=== PATIENT | female | born 1995 | race Caucasian/White ===

== ENCOUNTER 2021-01-30 19:28 | Emergency (ER) | payer BC, SELFPAY ==
--- NOTE | 2021-01-30 19:37 | ED.EAR ---
HPI - Ear Problem General Chief complaint: Ear Stated complaint: Sore Throat/Ear Pain Time Seen by Provider: 01/30/21 19:37 Source: patient Mode of arrival: ambulatory Limitations: no limitations History of Present Illness HPI Narrative: Delma Webber is a 25 yo female with no PMH who comes to express care with L ear pain and sore throat x1 day. No fever no nausea vomiting diarrhea. Related Data Allergies Allergy/AdvReac Type Severity Reaction Status Date / Time amoxicillin Allergy Unknown Verified 01/30/21 19:44 latex Allergy Unknown Verified 01/30/21 19:44 Review of Systems Review of Systems: Complaints of bilateral ear pain and sore throat All other systems are negative other than what is refer to above otalgia. CARDIOVASCULAR: Denies chest pain, palpitations, edema. RESPIRATORY: Denies dyspnea, wheezing, cough GASTROINTESTINAL: Denies abdominal pain, nausea, vomiting, diarrhea. GENITOURINARY: Denies dysuria, hematuria, abnormal discharge SKIN: Denies rash or itching. NEUROLOGIC: Denies numbness, or focal weakness. PSYCHIATRIC: Denies anxiety or depression. Constitutional: Constitutional: Reports as per HPI Eyes: Eyes: Reports as per HPI ENT: Reports as per HPI Cardiovascular: Cardiovascular: Reports no additional cardiovascular complaints Respiratory: Respiratory: Reports no additional respiratory complaints Gastrointestinal: Gastrointestinal: Reports no additional gastrointestinal complaints Genitourinary: Genitourinary: Reports no additional female genitourinary complaints Musculoskeletal: Musculoskeletal: Reports no additional musculoskeletal complaints Psychiatric: Psychiatric: Reports no additional psychiatric complaints Endocrine: Endocrine: Reports no additional endocrine complaints Hematologic/Lymphatic: Hematologic/Lymphatic: Reports no additional hematologic/lymphatic complaints Allergic/Immunologic: Allergic/Immunologic: Reports no additional allergic/immunologic complaints [facility] Past Medical History Medical History No acute m
[2021-01-30 19:45] VITALS: BP 129/82; PULSE 93; RESP 16; TEMP 36.6; O2SAT 100
== END 2021-01-30 20:07 | disposition home or self-care (01) ==
PROVIDERS: Emergency Provider Nurse Practitioner; PCP Nurse Practitioner Family
DX: H66.003 Acute suppurative otitis media without spontaneous rupture of ear drum, bilateral (principal); J02.9 Acute pharyngitis, unspecified
CPT/HCPCS: 87081; 87880; 99213; G0463

== ENCOUNTER 2021-03-02 09:39 | Outpatient (CLI) | payer BC, SELFPAY | END 2021-03-02 09:40 | disposition home or self-care (01) | LOC: ANHAUDIO 09:40 | PROVIDERS: PCP Nurse Practitioner Family; Visit Provider Otolaryngology | DX: H90.71 Mixed conductive and sensorineural hearing loss, unilateral, right ear, with unrestricted hearing on the contralateral side (principal) | CPT/HCPCS: 92557; 92567 ==

== ENCOUNTER 2021-03-14 11:10 | Emergency (ER) | payer BC, SELFPAY ==
[2021-03-14 11:22] VITALS: BP 128/72; PULSE 83; RESP 16; TEMP 36.4; O2SAT 100
--- NOTE | 2021-03-14 11:53 | ED.LOWEXIN ---
HPI - Extremity Injury (Lower) General Chief Complaint: Extremity Injury, Lower Stated Complaint: Right knee pain. Time Seen by Provider: 03/14/21 11:54 Source: patient and RN notes reviewed Mode of arrival: ambulatory Limitations: no limitations History of Present Illness HPI Narrative: 26-year-old female presents with concern for knee injury and pain. Reports yesterday while cleaning a house she was bending when she felt a painful pop in the front of her knee. Reports since then the knee has been painful at rest and worsening pain with walking and range of motion. She reports she has been elevating the leg. MD complaint: knee injury Related Data Allergies Allergy/AdvReac Type Severity Reaction Status Date / Time amoxicillin Allergy Unknown Verified 02/13/21 10:09 latex Allergy Unknown Verified 02/13/21 10:09 Review of Systems Review of Systems: CONSTITUTIONAL: Denies malaise, chills, sweats, or fever. SKIN: Denies rash or itching, open skin, laceration, abrasion, redness, warmth, swelling. MUSCULOSKELETAL: Reports left knee pain NEUROLOGIC: Denies numbness, weakness All systems reviewed & are unremarkable except as noted in HPI and below PMFSH Past Medical History Medical History (Updated 03/14/21 @ 12:08 by Irina Loja NP) Anxiety No acute medical problems Family History Family History (Updated 02/13/21 @ 10:11 by Bing Bean MA) Father Hypertension Mother Diabetes mellitus Depression Sibling Depression Grandparent Depression Heart disease Cerebrovascular accident Grandparent Lung cancer Heart disease Social History Social History (Updated 02/13/21 @ 10:11 by Bing Bean MA) Smoking status: Never smoker Alcohol intake: current Substance use: never Comments At time of signature, agree with nursing past medical, surgical, social and family history. There is no relevant family history pertinent to the presenting complaint Exam Narrative: GENERAL: Well-appearing, well-nourished, and in no acute distress. HEAD: Normocephalic, atraumatic. EYES: PERRLA, conjunctivae clear NECK: Supple. CHEST: Speaks in full sentences. No respiratory distress. HEART: Regular rate and rhythm. Normal and equal peripheral pulses. EXTREMITIES: Left knee has normal sensation, limited range of motion. No edema or ecchymosis. Normal sensation with sensitivity to light touch and pain. Anterior tenderness. No open wounds, no skin tenting, no devitalized tissue or atrophy, no trophic changes, no obvious deformity, alignment normal, nearby joints and structures intact. Distal pulses palpable and equal bilaterally, skin warm, dry, pink. Capillary refill less than 3 seconds. Lever test shows laxity in the joint SKIN: Warm, dry, no rash. NEURO: Alert and oriented x3. PSYCH: Normal mood and affect Course Course Emergency Course: Patient is aware of diagnosis, understands and agrees to treatment plan. Anticipatory guidance given. Patient agrees to follow-up as directed and is aware of reasons to seek care at the emergency department. Portions of this record may have been created with voice recognition software Level of Care: Express Care Visit Vital Signs Vital signs: Vital Signs Temperature 97.5 F L 03/14/21 11:22 Pulse Rate 83 03/14/21 11:22 Respiratory Rate 16 03/14/21 11:22 Blood Pressure 128/72 03/14/21 11:22 Pulse Oximetry 100 03/14/21 11:22 Temperature 97.5 F L 03/14/21 11:22 Pulse Rate 83 03/14/21 11:22 Respiratory Rate 16 03/14/21 11:22 Blood Pressure 128/72 03/14/21 11:22 Pulse Oximetry 100 03/14/21 11:22 Reviewed. MDM - Extremity Injury (Lower) MDM Narrative Medical decision making narrative: Patients injury and pain is consistent with musculoskeletal etiology. No signs of neurological or vascular compromise on exam. Compartments and tissues are soft without signs of compartment syndrome. Pain is felt appropriate for further evaluation on an outpatient
--- NOTE | 2021-03-14 12:24 | PC.NURSE ---
joanna wrap was placed on right knee, crutches and instructions were given
== END 2021-03-14 12:11 | disposition home or self-care (01) ==
PROVIDERS: Emergency Provider Nurse Practitioner; PCP Nurse Practitioner Family
DX: S89.91XA Unspecified injury of right lower leg, initial encounter (principal); X58.XXXA Exposure to other specified factors, initial encounter
CPT/HCPCS: 99212; G0463

== ENCOUNTER 2021-06-19 08:00 | Outpatient (RCR) | payer BC, SELFPAY | END 2021-06-19 23:59 | disposition home or self-care (01) | LOC: ANHAUDIO 08:00 | PROVIDERS: PCP Nurse Practitioner Family; Visit Provider Nurse Practitioner Family | DX: Z46.1 Encounter for fitting and adjustment of hearing aid (principal) | CPT/HCPCS: 99199; V5241; V5256 ==

== ENCOUNTER 2021-12-16 08:34 | Emergency (ER) | payer BC, SELFPAY ==
[2021-12-16 08:46] VITALS: BP 129/73; PULSE 100; RESP 18; TEMP 36.7; O2SAT 100
--- NOTE | 2021-12-16 09:04 | ED.GENADULT ---
HPI - General Adult General Chief complaint: Allergic Reaction Stated complaint: allergic reaction - hives Time Seen by Provider: 12/16/21 08:37 Source: RN notes reviewed History of Present Illness HPI narrative: Patient presents emerged department from home for allergic reaction. Patient states that she has a generalized rash consistent with urticaria that began yesterday. Patient states she did recently use a new soap as well as use a new bobbin cleaner hand states that the rash is itchy admits over her hands and arms and her back chest and upper legs states she took Benadryl at home with last dose of Benadryl yesterday she denies any swelling of lips or tongue denies any shortness of breath or any other symptoms patient states Related Data Home Medications Medication Instructions Recorded Confirmed vitamins-iron fumarate 65 1 tablet PO DAILY 11/01/21 12/07/21 mg iron-folic acid 1 mg tablet Allergies Allergy/AdvReac Type Severity Reaction Status Date / Time amoxicillin Allergy Unknown Verified 12/07/21 10:18 latex Allergy Unknown Verified 12/07/21 10:18 Review of Systems Review of Systems: Gen.: Denies fevers or chills ENT: Denies swelling of the lips or tongue Respiratory: Denies shortness of breath or cough CV: Denies chest pain or palpitations GI: Denies abdominal pain nausea, emesis reports Musculoskeletal: Denies back pain or muscle pain Neuro: Denies numbness, tingling, weakness or focal weakness Skin: Reports rash Except as documented, all other systems reviewed and negative PMFSH Past Medical History Medical History Anxiety Asthma as child GERD (gastroesophageal reflux disease) Hearing difficulty Migraines No acute medical problems Suppression of menstruation Family History Family History Father Hypertension Mother Diabetes mellitus Depression Sibling Depression Grandparent Depression Heart disease Cerebrovascular accident Grandparent Lung cancer Heart disease Social History Social History Smoking status: Former smoker Tobacco type: e-cigarettes/vaping Smoking end date: 09/25/21 Alcohol intake: never Substance use: never Substance use type: does not use Additional living arrangements comments: Additional occupation/education comments: paraprofessional Gender identity (if verbalized by the patient): Female Sexual Orientation (if Verbalized by the Patient): Straight or Heterosexual Exam Narrative: APPEARANCE: No acute distress, nontoxic, resting in bed EYES: EOMI HEENT: Normocephalic, atraumatic, OMM no swelling of the lips or tongue airway patent RESPIRATORY: No respiratory distress Clear to auscultation bilaterally with no rhonchi wheezing or rales. CARDIOVASCULAR: Regular rate and rhythm without murmurs rubs or gallops. ABDOMINAL: Soft, nontender, nondistended, no rebound or guarding MUSCULOSKELETAl: Moves all extremities. No clubbing, cyanosis or edema. NEURO: Awake and alert. Following commands, speech normal, no focal deficits SKIN:: Warm, dry. Urticaria over the hands arms up to the shoulders back mid chest and upper legs with overlying excoriation PSYCHIATRIC: Normal affect/mood, Course Course Emergency Course: Patient states she is feeling much better following medication patient's urticaria has improved Discussed with patient results of workup and diagnosis. Discussed need for follow-up with primary care, proper use of medication, and reasons to return to the emergency department. Patient understands and agrees to current treatment plan Vital Signs Vital signs: Vital Signs Temperature 98.0 F 12/16/21 08:46 Pulse Rate 100 12/16/21 08:46 Respiratory Rate 18 12/16/21 08:46 Blood Pressure 129/73 12/16/21 08:46 Pulse Oximetry 100 12/16/21 0
--- NOTE | 2021-12-16 09:20 | PC.NURSE ---
Per EDP Koko, okay to give IV medications
[2021-12-16] MEDS: FAMOTIDINE 20 MG/2 ML VIAL IV PUSH (09:25)
[2021-12-16] MEDS: methylPREDNISolone SOD SUCC 125 MG VIAL IV PUSH (09:25)
[2021-12-16] MEDS: diphenhydrAMINE HCl INJ 50 MG/ML VIAL 25 MG IV PUSH (09:25)
[2021-12-16 10:42] VITALS: BP 112/55; PULSE 101; RESP 18; O2SAT 99
== END 2021-12-16 10:42 | disposition home or self-care (01) ==
PROVIDERS: Emergency Provider Emergency Medicine; PCP Nurse Practitioner Family
DX: O9A.212 Injury, poisoning and certain other consequences of external causes complicating pregnancy, second trimester (principal); T78.40XA Allergy, unspecified, initial encounter; O99.612 Diseases of the digestive system complicating pregnancy, second trimester; K21.9 Gastro-esophageal reflux disease without esophagitis; Z87.891 Personal history of nicotine dependence; Z3A.15 15 weeks gestation of pregnancy
CPT/HCPCS: 96374; 96375; 99284; J1200; J2930

== ENCOUNTER 2021-12-26 10:35 | Emergency (ER) | payer BC, OTHER, MEDICAID, SELFPAY ==
[2021-12-26 10:43] VITALS: BP 128/80; PULSE 92; RESP 15; TEMP 36.9; O2SAT 100
--- NOTE | 2021-12-26 10:43 | ED.UPPEXIN ---
HPI - Extremity Injury (Upper) General Chief Complaint: Upper Respiratory Infection Stated Complaint: SORE THROAT/EARACHE/DIARRHEA/STOMACH PAIN Time Seen by Provider: 12/26/21 10:43 Source: patient, RN notes reviewed and old records reviewed Mode of arrival: ambulatory Limitations: no limitations History of Present Illness HPI narrative: 26-year-old female presents to the [facility] with complaints of sore throat, left ear pain since Saturday. She reports she had diarrhea yesterday. No diarrhea today. Denies fevers. Has not taken anything for symptoms because she is currently . 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 Son had strep last week. Estimated due date June 03, 2022 Ob doctor [facility] Related Data Home Medications Medication Instructions Recorded Confirmed vitamins-iron fumarate 65 1 tablet PO DAILY 11/01/21 12/26/21 mg iron-folic acid 1 mg tablet aspirin 81 mg chewable tablet 81 mg PO DAILY 12/26/21 12/26/21 (Aspirin Childrens) Allergies Allergy/AdvReac Type Severity Reaction Status Date / Time amoxicillin AdvReac Mild Hives Verified 12/26/21 10:54 latex AdvReac Mild Hives Verified 12/26/21 10:54 Review of Systems Review of Systems: All systems reviewed & are unremarkable except as noted in HPI and below Constitutional: Constitutional: Reports no additional constitutional complaints, Denies chills and Denies fever(s) Eyes: Eyes: Reports no additional eye complaints ENT: Reports as per HPI Cardiovascular: Cardiovascular: Reports no additional cardiovascular complaints Respiratory: Respiratory: Reports no additional respiratory complaints Gastrointestinal: Gastrointestinal: Reports no additional gastrointestinal complaints Musculoskeletal: Musculoskeletal: Reports no additional musculoskeletal complaints Integumentary/Breasts: Skin/Breast: Reports system reviewed and no additional complaints, except as docu Neurologic: Reports system reviewed and no additional complaints, except as documented Psychiatric: Psychiatric: Reports no additional psychiatric complaints Allergic/Immunologic: Allergic/Immunologic: Reports no additional allergic/immunologic complaints PMFSH Past Medical History Medical History Anxiety Asthma as child GERD (gastroesophageal reflux disease) Hearing difficulty Migraines No acute medical problems Suppression of menstruation Family History Family History Father Hypertension Mother Diabetes mellitus Depression Sibling Depression Grandparent Depression Heart disease Cerebrovascular accident Grandparent Lung cancer Heart disease Social History Social History Smoking status: Former smoker Tobacco type: e-cigarettes/vaping Smoking end date: 09/25/21 Alcohol intake: never Substance use: never Substance use type: does not use Additional living arrangements comments: Additional occupation/education comments: paraprofessional Gender identity (if verbalized by the patient): Female Sexual Orientation (if Verbalized by the Patient): Straight or Heterosexual Comments At the time of my signature, I reviewed and agree with the nursing past medical, surgical, social, and family history. There is no relevant family history pertinent to the patient complaint. Exam Const: General: healthy appearing, no acute distress, alert and well nourished Nutritional Appearance: well nourished Orientation/consciousness: patient oriented x3 Limitations: no limitations HENMT: Head: normal to inspection Ears: external ears normal, TM's normal bilaterally and EAC's normal Face/Nose/Sinus: Normal external nose present and Normal nares present Face and sinus: normal facial exam Throat: posterior oropharynx normal, uvula midline and postn
== END 2021-12-26 11:19 | disposition home or self-care (01) ==
PROVIDERS: Emergency Provider Nurse Practitioner; PCP Obstetrics & Gynecology
DX: O99.519 Diseases of the respiratory system complicating pregnancy, unspecified trimester (principal); Z3A.00 Weeks of gestation of pregnancy not specified; J06.9 Acute upper respiratory infection, unspecified; Z20.822 Contact with and (suspected) exposure to COVID-19
CPT/HCPCS: 87081; 87426; 87804; 87880; 99213; C9803; G0463

== ENCOUNTER 2022-01-08 11:15 | Emergency (ER) | payer BC, OTHER, MEDICAID, SELFPAY ==
[2022-01-08 11:25] VITALS: BP 129/69; PULSE 97; RESP 16; TEMP 36.6; O2SAT 99
--- NOTE | 2022-01-08 11:37 | ED.GENADULT ---
HPI - General Adult General Chief complaint: Headache Stated complaint: Headache Time Seen by Provider: 01/08/22 11:38 Source: patient, RN notes reviewed and old records reviewed Mode of arrival: ambulatory Limitations: no limitations History of Present Illness HPI narrative: 26-year-old female presents to the [facility] with complaints of sinus pressure since Saturday, 2 days. Son tested positive for influenza a, requesting being tested Denies any fevers. Called OB doctor her for today was told to come get tested for the flu. Onset (ago): day(s) (2) Related Data Home Medications Medication Instructions Recorded Confirmed vitamins-iron fumarate 65 1 tablet PO DAILY 11/01/21 01/08/22 mg iron-folic acid 1 mg tablet aspirin 81 mg chewable tablet 81 mg PO DAILY 12/26/21 01/08/22 (Aspirin Childrens) Allergies Allergy/AdvReac Type Severity Reaction Status Date / Time amoxicillin AdvReac Mild Hives Verified 01/08/22 11:18 latex AdvReac Mild Hives Verified 01/08/22 11:18 Review of Systems Review of Systems: All systems reviewed & are unremarkable except as noted in HPI and below Constitutional: Constitutional: Reports no additional constitutional complaints, Denies chills and Denies fever(s) Eyes: Eyes: Reports no additional eye complaints ENT: Reports as per HPI and Reports nasal congestion Cardiovascular: Cardiovascular: Reports no additional cardiovascular complaints Respiratory: Respiratory: Reports no additional respiratory complaints Gastrointestinal: Gastrointestinal: Reports no additional gastrointestinal complaints Musculoskeletal: Musculoskeletal: Reports no additional musculoskeletal complaints Integumentary/Breasts: Skin/Breast: Reports system reviewed and no additional complaints, except as docu Neurologic: Reports system reviewed and no additional complaints, except as documented Psychiatric: Psychiatric: Reports no additional psychiatric complaints Allergic/Immunologic: Allergic/Immunologic: Reports no additional allergic/immunologic complaints [facility] Past Medical History Medical History Anxiety Asthma as child GERD (gastroesophageal reflux disease) Hearing difficulty Migraines No acute medical problems Suppression of menstruation Family History Family History Father Hypertension Mother Diabetes mellitus Depression Sibling Depression Grandparent Depression Heart disease Cerebrovascular accident Grandparent Lung cancer Heart disease Social History Social History Smoking status: Former smoker Tobacco type: e-cigarettes/vaping Smoking end date: 09/25/21 Alcohol intake: never Substance use: never Substance use type: does not use Additional living arrangements comments: Additional occupation/education comments: paraprofessional Gender identity (if verbalized by the patient): Female Sexual Orientation (if Verbalized by the Patient): Straight or Heterosexual Comments At the time of my signature, I reviewed and agree with the nursing past medical, surgical, social, and family history. There is no relevant family history pertinent to the patient complaint. Exam Const: General: healthy appearing, no acute distress, alert and well nourished Nutritional Appearance: well nourished Orientation/consciousness: patient oriented x3 Limitations: no limitations HENMT: Head: normal to inspection Ears: external ears normal, TM's normal bilaterally and EAC's normal Face/Nose/Sinus: Normal external nose present and Normal nares present Face and sinus: normal facial exam Mouth: Yes Normal oral and palatal mucosa present, Yes lip normal and Yes moist mucous membranes Throat: posterior oropharynx normal and uvula midline Eyes: General: appearance normal, both eyes and all related s
== END 2022-01-08 12:05 | disposition home or self-care (01) ==
PROVIDERS: Emergency Provider Nurse Practitioner
DX: J06.9 Acute upper respiratory infection, unspecified (principal); J45.909 Unspecified asthma, uncomplicated; Z79.82 Long term (current) use of aspirin; Z87.891 Personal history of nicotine dependence
CPT/HCPCS: 87804; 99213; G0463

== ENCOUNTER 2022-03-06 11:07 | Emergency (ER) | payer BC, OTHER, MEDICAID, SELFPAY ==
[2022-03-06 11:30] VITALS: BP 110/77; PULSE 105; RESP 16; TEMP 36.8; O2SAT 99
--- NOTE | 2022-03-06 11:46 | ED.EAR ---
HPI - Ear Problem General Chief complaint: Ear Stated complaint: pus and blood come from left ear Time Seen by Provider: 03/06/22 11:32 Source: patient Mode of arrival: ambulatory Limitations: no limitations History of Present Illness HPI Narrative: Rj is a 27-year-old female patient presenting to clinic today with complaints of bilateral ear pain, cough, and congestion times 3 days. She reports no fever or chills. She is 27 weeks . Related Data Home Medications Medication Instructions Recorded Confirmed vitamins-iron fumarate 65 1 tablet PO DAILY 11/01/21 03/06/22 mg iron-folic acid 1 mg tablet aspirin 81 mg chewable tablet 81 mg PO DAILY 12/26/21 03/06/22 (Aspirin Childrens) Allergies Allergy/AdvReac Type Severity Reaction Status Date / Time amoxicillin AdvReac Mild Hives Verified 03/06/22 11:39 latex AdvReac Mild Hives Verified 03/06/22 11:39 Review of Systems Review of Systems: Pertinent positives per HPI. Patient denies any fever, chills, rash, headache, visual changes, dizziness, shortness of breath, chest pain, palpitations, nausea, vomiting, diarrhea, constipation, abdominal pain, or any urinary issues. [facility] Past Medical History Medical History (Updated 03/06/22 @ 11:47 by Kumar Todd APRN) Anxiety Asthma as child GERD (gastroesophageal reflux disease) Hearing difficulty Migraines No acute medical problems Suppression of menstruation Family History Family History Father Hypertension Mother Diabetes mellitus Depression Sibling Depression Grandparent Depression Heart disease Cerebrovascular accident Grandparent Lung cancer Heart disease Social History Social History Smoking status: Former smoker Tobacco type: e-cigarettes/vaping Smoking end date: 09/25/21 Alcohol intake: never Substance use: never Substance use type: does not use Additional living arrangements comments: Additional occupation/education comments: paraprofessional Gender identity (if verbalized by the patient): Female Sexual Orientation (if Verbalized by the Patient): Straight or Heterosexual Comments At the time of my signature, I reviewed and agree with the nursing past medical, surgical, social, and family history. There is no relevant family history pertinent to the patient complaint. Exam Narrative: General: Well-developed, well nourished, in no apparent distress Head: Normocephalic, atraumatic Eyes: Pupils equally round and reactive to light bilaterally, EOM intact, sclera and conjunctive clear, no discharge, lids normal Ears: TMs intact, dull, fluid noted behind bilateral TMs, ear canals clear, no drainage, grossly hearing normal. Nose: Nares patent, clear nasal discharge, mild inflammation, no sinus tenderness. Mouth: Oral pharynx without lesions or masses, good dentition, MMM. Postnasal drip Neck: Supple, trachea midline, no enlargement of anterior or posterior cervical nodes, no thyroid masses or goiter palpable. Cardio: Regular rate and rhythm, s1 and s2 normal, no murmur appreciated. Resp: Clear to auscultation bilaterally, no rhonchi, rales, wheezing or rubs Course Course Emergency Course: Portions of this record may have been created with voice recognition software. Level of Care: Express Care Visit Vital Signs Vital signs: Vital Signs Temperature 36.8 C 03/06/22 11:30 Pulse Rate 105 H 03/06/22 11:30 Respiratory Rate 16 03/06/22 11:30 Blood Pressure 110/77 03/06/22 11:30 Pulse Oximetry 99 03/06/22 11:30 Temperature 36.8 C 03/06/22 11:30 Pulse Rate 105 H 03/06/22 11:30 Respiratory Rate 16 03/06/22 11:30 Blood Pressure 110/77 03/06/22 11:30 Pulse Oximetry 99 03/06/22 11:30 Vital signs reviewed Medical Decision Making MDM Narrative Medical decision making na
== END 2022-03-06 11:56 | disposition home or self-care (01) ==
PROVIDERS: Emergency Provider Nurse Practitioner Family; PCP Nurse Practitioner Family
DX: O99.891 Other specified diseases and conditions complicating pregnancy (principal); H65.03 Acute serous otitis media, bilateral; J06.9 Acute upper respiratory infection, unspecified; R05.9 Cough, unspecified; O99.612 Diseases of the digestive system complicating pregnancy, second trimester; K21.9 Gastro-esophageal reflux disease without esophagitis; Z3A.27 27 weeks gestation of pregnancy; Z87.891 Personal history of nicotine dependence
CPT/HCPCS: 99213; G0463

== ENCOUNTER 2022-04-24 11:29 | Observation (INO) | payer OTHER, MEDICAID, SELFPAY ==
[2022-04-24 11:44] VITALS: BP 115/71; PULSE 121
[2022-04-24 12:19] VITALS: BP 105/72; PULSE 122
[2022-04-24 12:53] VITALS: BMI 41.3
--- NOTE | 2022-04-24 12:54 | LDADM ---
This patient, Delma Webber, was admitted to OB Post 113 on 04/24/22 at 11:29. Plans for labor, pain management and were discussed with patient. Patient/family oriented to hospital policies and general routines including ID bracelet, bed and alarms, visiting hours, pain management, procedures, bathroom and other care routines, personal items, smoking policy, room service/diet and guest tray routines, infant security routines, and visiting hours. Patient/Family are encouraged to report perceived risks to care and to ask questions if they do not understand what they are told or what they should do. See OBIX for further documentation.
--- NOTE | 2022-04-24 13:10 | PC.NURSE ---
1241: Dr. Perales responded to page. RN informed OB of patient's complaints, contraction pattern of rare contractions, ROM plus negative result, vital signs, and FHT pattern. Orders to discharge patient home with instructions to drink plenty of fluid and keep next scheduled OB appointment.
--- NOTE | 2022-04-24 13:13 | PC.NURSE ---
1140: patient came in with complaints of tightening of her stomach with pain, and leaking fluids. RN will place patient on the monitor to monitor for contractions and will do a ROM plus. 1215: ROM plus was negative, contractions are rare.
--- NOTE | 2022-04-26 07:56 | PM.OBTRLD ---
OB - Triage/Final Diagnosis Visit Information Reason for evaluation: threatened labor Comments/Additional reasons for admission: I have assessed the risk for this patient, Delma Webber, and determined that she would benefit from observation care.
== END 2022-04-24 13:00 | disposition home or self-care (01) ==
PROVIDERS: Admitting Provider Obstetrics & Gynecology; PCP Nurse Practitioner Family; Visit Provider Obstetrics & Gynecology
DX: O47.9 False labor, unspecified (principal); Z3A.00 Weeks of gestation of pregnancy not specified
CPT/HCPCS: G0378; G0379

== ENCOUNTER 2022-05-02 09:55 | Observation (INO) | payer OTHER, MEDICAID, SELFPAY ==
[2022-05-02 10:24] VITALS: BP 121/74; PULSE 94
[2022-05-02 10:30] VITALS: BMI 41.1
--- NOTE | 2022-05-02 10:31 | OBADM ---
This patient, Delma Webber, admitted to the OB room Labor/Delivery/Recovery 107 for observation. Patient/family oriented to hospital policies and general routines including ID bracelet, bed and alarms, visiting hours, pain management, procedures, bathroom and other care routines, personal items, smoking policy, room service/diet, and visiting hours. Patient/Family are encouraged to report perceived risks to care and to ask questions if they do not understand what they are told or what they should do.
--- NOTE | 2022-05-02 11:47 | PM.OBTRLD ---
OB - Triage/Final Diagnosis Visit Information Date of evaluation: 05/02/22 Reason for evaluation: other (leakage of amniotic fluid) Comments/Additional reasons for admission: I have assessed the risk for this patient, Delmaannie Webber, and determined that she would benefit from observation care. Evaluation Vital signs: Vital Signs - 24 hr 05/02/22 10:24 Pulse Rate 94 Blood Pressure 121/74
== END 2022-05-02 11:15 | disposition home or self-care (01) ==
PROVIDERS: Admitting Provider Student in an Organized Health Care Education/Training Program; PCP Nurse Practitioner Family; Visit Provider Student in an Organized Health Care Education/Training Program
DX: O42.913 Preterm premature rupture of membranes, unspecified as to length of time between rupture and onset of labor, third trimester (principal); Z3A.35 35 weeks gestation of pregnancy
CPT/HCPCS: 84112; G0378; G0379

== ENCOUNTER 2022-05-09 15:01 | Outpatient (CLI) | payer OTHER, MEDICAID, SELFPAY ==
[2022-05-09 15:35] VITALS: BP 131/79; PULSE 97
[2022-05-09 15:38] LABS: Basophils Percent Auto 0.2 % (0.2-1.2); Eosinophils Percent Auto 0.3 % (0-4.4); Hematocrit 33.4 % (37.0-47.0); Hemoglobin 11.8 g/dL (12.0-15.0); Immature Granulocyte Absolute 0.03 K/mm3 (0.00-0.031); Immature Granulocyte Percent A 0.3 % (0-0.5); Lymphocytes Absolute Auto 1.86 K/mm3 (0.9-3.2); Mean Corpuscular HGB Conc 35.3 g/dl (32-36); Mean Corpuscular Hemoglobin 30.1 pg (26-34); Mean Corpuscular Volume 85.2 fl (80-100); Mean Platelet Volume 9.7 fl (7.4-10.4); Monocytes Absolute Auto 0.6 K/mm3 (0.1-0.6); Monocytes Percent Auto 6.6 % (2.6-8.5); Neutrophils Absolute Auto 6.7 K/mm3 (1.3-6.7); Neutrophils Percent Auto 72.6 % (45.5-73.1); Platelet Count Result 224 k/mm3 (150-375); Red Blood Count 3.92 M/mm3 (4.2-5.4); Red Cell Distribution Width 13.5 % (11.5-14.5); White Blood Count 9.3 K/mm3 (4.5-10.0)
[2022-05-09 15:44] LABS: Creatinine Urine 52.7 mg/dL; Total Protein Urine Random 16 mg/dL
[2022-05-09 15:45] VITALS: BP 125/81; PULSE 98
[2022-05-09 15:50] LABS: Alanine Aminotransferase 15 U/L (6-35); Albumin Level 3.5 g/dL (3.5-5.1); Alkaline Phosphatase 125 U/L (38-126); Anion Gap 4 mmol/L (8-16); Aspartate Amino Transferase 20 U/L (14-36); Bilirubin,Total 0.4 mg/dL (0.2-1.3); Blood Urea Nitrogen 6 mg/dL (7-17); Calcium 9.1 mg/dL (8.4-10.2); Carbon Dioxide 23 mmol/L (22-30); Chloride 107 mmol/L (98-107); Estimated Glomerular Filt Rate > 60; Glucose 110 mg/dL (65-110); Potassium 3.8 mmol/L (3.4-5.0); Sodium 134 mmol/L (137-145)
[2022-05-09 15:54] LABS: Appearance Urine Cloudy (Clear); Bacteria Urine None Seen /hpf; Bilirubin Urine Negative (Negative); Blood Urine Negative (Negative); Color Urine Yellow (Yellow); Glucose Urine UA Negative (Negative); Ketones Urine Negative (Negative); Leukocyte Esterase Ur 1+ LEU/UL (NEGATIVE); Need Manual Microscopic Reviewed; Nitrate Urine Negative (Negative); Non Pathogenic Casts 0-2; Protein Urine Negative (Negative); RBC Urine 0-2 /hpf (0-2); Squamous Epithelial Cell Urine Occasional /hpf (Few); Urobilinogen Urine 0.2 mg/dL (<2.0); WBC Urine 0-5 /hpf (0-3)
[2022-05-09 16:00] VITALS: BP 124/83; PULSE 106
[2022-05-09 16:00] LABS: Add Urine Microscopic? YES
--- NOTE | 2022-05-09 16:02 | PC.NURSE ---
Dr. Perales reviewed pt labs and blood pressures. Orders received for pt to come back in on Saturday for NST, BPP and repeat PIH labs. Pt to take it easy over the weekend and schedule appointment in the office on Saturday.
[2022-05-09 16:19] VITALS: BP 125/81; PULSE 94
== END 2022-05-09 16:18 | disposition home or self-care (01) ==
LOC: ANHOBOP 15:08 → ANHLDR 15:09
PROVIDERS: PCP Nurse Practitioner Family; Visit Provider Obstetrics & Gynecology
DX: O13.9 Gestational [pregnancy-induced] hypertension without significant proteinuria, unspecified trimester (principal)
CPT/HCPCS: 36415; 59025; 80053; 81001; 82570; 84156; 84550; 85025; 87086; 99199

== ENCOUNTER 2022-05-15 09:54 | Outpatient (RCR) | payer OTHER, MEDICAID, SELFPAY ==
[2022-05-11 10:18] LABS: Basophils Percent Auto 0.2 % (0.2-1.2); Eosinophils Absolute Auto 0.1 K/mm3 (0-0.3); Eosinophils Percent Auto 1.1 % (0-4.4); Hematocrit 34.8 % (37.0-47.0); Immature Granulocyte Absolute 0.03 K/mm3 (0.00-0.031); Immature Granulocyte Percent A 0.4 % (0-0.5); Lymphocytes Absolute Auto 1.55 K/mm3 (0.9-3.2); Lymphocytes Percent Auto 18.1 % (18.3-44.2); Mean Corpuscular HGB Conc 34.5 g/dl (32-36); Mean Corpuscular Hemoglobin 30.1 pg (26-34); Mean Corpuscular Volume 87.2 fl (80-100); Mean Platelet Volume 9.8 fl (7.4-10.4); Monocytes Absolute Auto 0.4 K/mm3 (0.1-0.6); Monocytes Percent Auto 4.3 % (2.6-8.5); Neutrophils Absolute Auto 6.5 K/mm3 (1.3-6.7); Neutrophils Percent Auto 75.9 % (45.5-73.1); Platelet Count Result 220 k/mm3 (150-375); Red Blood Count 3.99 M/mm3 (4.2-5.4); Red Cell Distribution Width 13.3 % (11.5-14.5); White Blood Count 8.6 K/mm3 (4.5-10.0)
[2022-05-11 10:23] LABS: Appearance Urine Clear (Clear); Bacteria Urine 2+ /hpf; Bilirubin Urine Negative (Negative); Blood Urine Negative (Negative); Color Urine Yellow (Yellow); Glucose Urine UA Negative (Negative); Ketones Urine Negative (Negative); Leukocyte Esterase Ur 2+ LEU/UL (NEGATIVE); Nitrate Urine Negative (Negative); Non Pathogenic Casts 0-2; Protein Urine Negative (Negative); RBC Urine 0-2 /hpf (0-2); Specific Grav Ur 1.013 (1.001-1.035); Squamous Epithelial Cell Urine Moderate /hpf (Few); Urobilinogen Urine 0.2 mg/dL (<2.0); pH Urine 7.5 (5.0-9.0)
[2022-05-11 10:34] VITALS: BP 126/72; PULSE 118
--- NOTE | 2022-05-11 10:35 | PC.NURSE ---
ROM plus obtained and gentle SVE very posterior, thick/1cm. Pt taken to US for BPP via wheelchair.
[2022-05-11 10:37] LABS: Add Urine Microscopic? YES
[2022-05-11 10:44] LABS: Alanine Aminotransferase 18 U/L (6-35); Albumin Level 3.5 g/dL (3.5-5.1); Alkaline Phosphatase 139 U/L (38-126); Anion Gap 8 mmol/L (8-16); Aspartate Amino Transferase 20 U/L (14-36); Bilirubin,Total 0.4 mg/dL (0.2-1.3); Blood Urea Nitrogen 6 mg/dL (7-17); Calcium 8.9 mg/dL (8.4-10.2); Carbon Dioxide 19 mmol/L (22-30); Chloride 106 mmol/L (98-107); Estimated Glomerular Filt Rate > 60; Glucose 123 mg/dL (65-110); Potassium 3.7 mmol/L (3.4-5.0); Sodium 133 mmol/L (137-145); Uric Acid 5.4 mg/dL (2.5-7.5)
--- NOTE | 2022-05-11 10:55 | PC.NURSE ---
Pt returned to room. BPP 10/16. Awaiting lab results.
[2022-05-11 11:03] LABS: Creatinine Urine 74.2 mg/dL; Total Protein Urine Random 8 mg/dL; Ur Ttl Prot Creatinine Ratio 0.11 mg/mg (0-0.20)
--- NOTE | ~2022-05-15 | US_ITS ---
EXAMINATION: US OB BPP wo non-stress DATE: 05/15/2022 11:14 INDICATION: -induced hypertension during third trimester TECHNIQUE: Real-time pelvic ultrasound was performed. The interpreting radiologist was not present fo r the study. COMPARISON: 05/11/2022 FINDINGS: There is a single living fetus in vertex presentation. The placenta is posterior fundal. heart rate is 149 beats per minute (bpm). Amniotic fluid volume is subjectively normal. The cervix is not visualized. Biophysical profile performed by the technologist: breathing (30 sec sustained breathing in 30 minutes): 2 out of 2 movement (3 gross body movements in 30 minutes): 2 out of 2 tone (one episode of ttoetfr-hgmjoqngy-ahshena limb movement): 2 out of 2 Amniotic fluid pocket (2 cm): 2 out of 2 Total score: 8 out of 8 IMPRESSION: 1. Single living fetus in vertex presentation with heart rate of 149 bpm. 2. Biophysical profile 8 out of 8. Reviewed, dictated and finalized at location A. NFORMATICS TECHNICIAN
--- NOTE | ~2022-05-15 | US_ITS ---
EXAMINATION: US OB BPP wo non-stress DATE: 05/11/2022 10:55 INDICATION: -induced hypertension. Third trimester. TECHNIQUE: Real-time pelvic ultrasound was performed. COMPARISON: Ultrasound 04/30/2022, 11/06/2021 FINDINGS: There is a single living fetus in vertex presentation. The placenta is fundal. The cervix is obscure d. heart rate is 141 beats per minute (bpm). There is deepest vertical pocket is 6.9 cm. Biophysical profile performed by the technologist: breathing (30 sec sustained breathing in 30 minutes): 2 out of 2 movement (3 gross body movements in 30 minutes): 2 out of 2 tone (one episode of btmetmn-yzlondszp-htlfavx limb movement): 2 out of 2 Amniotic fluid pocket (2 cm): 2 out of 2 Total score: 8 out of 8 IMPRESSION: 1. Single living fetus in vertex presentation. 2. Biophysical profile 8 out of 8. Reviewed, dictated and finalized at location A. HOME INDEPENDENT CALL CENTER AGENT
[2022-05-15 10:52] LABS: Alanine Aminotransferase 17 U/L (6-35); Albumin Level 3.4 g/dL (3.5-5.1); Alkaline Phosphatase 143 U/L (38-126); Anion Gap 9 mmol/L (8-16); Aspartate Amino Transferase 21 U/L (14-36); Bilirubin,Total 0.4 mg/dL (0.2-1.3); Blood Urea Nitrogen 7 mg/dL (7-17); Calcium 8.8 mg/dL (8.4-10.2); Carbon Dioxide 18 mmol/L (22-30); Chloride 110 mmol/L (98-107); Estimated Glomerular Filt Rate > 60; Glucose 140 mg/dL (65-110); Potassium 3.6 mmol/L (3.4-5.0); Sodium 137 mmol/L (137-145); Uric Acid 5.8 mg/dL (2.5-7.5)
[2022-05-15 11:03] LABS: Basophils Percent Auto 0.2 % (0.2-1.2); Eosinophils Absolute Auto 0.1 K/mm3 (0-0.3); Eosinophils Percent Auto 0.6 % (0-4.4); Hematocrit 35.6 % (37.0-47.0); Hemoglobin 12.3 g/dL (12.0-15.0); Immature Granulocyte Absolute 0.03 K/mm3 (0.00-0.031); Immature Granulocyte Percent A 0.4 % (0-0.5); Lymphocytes Absolute Auto 1.69 K/mm3 (0.9-3.2); Lymphocytes Percent Auto 19.7 % (18.3-44.2); Mean Corpuscular HGB Conc 34.6 g/dl (32-36); Mean Corpuscular Hemoglobin 29.9 pg (26-34); Mean Corpuscular Volume 86.4 fl (80-100); Mean Platelet Volume 9.7 fl (7.4-10.4); Monocytes Absolute Auto 0.3 K/mm3 (0.1-0.6); Monocytes Percent Auto 3.3 % (2.6-8.5); Neutrophils Absolute Auto 6.5 K/mm3 (1.3-6.7); Neutrophils Percent Auto 75.8 % (45.5-73.1); Platelet Count Result 225 k/mm3 (150-375); Red Blood Count 4.12 M/mm3 (4.2-5.4); Red Cell Distribution Width 13.1 % (11.5-14.5); White Blood Count 8.6 K/mm3 (4.5-10.0)
[2022-05-15 11:57] VITALS: BP 129/84; PULSE 114
== END 2022-06-29 15:08 | disposition home or self-care (01) ==
LOC: ANHOBOP 09:54
PROVIDERS: PCP Nurse Practitioner Family; Visit Provider Obstetrics & Gynecology
DX: O16.3 Unspecified maternal hypertension, third trimester (principal); Z3A.37 37 weeks gestation of pregnancy
CPT/HCPCS: 36415; 59025; 76819; 80053; 81001; 82570; 84156; 84550; 85025; 87086; 87088

== ENCOUNTER 2022-05-17 15:52 | Inpatient (IN) | payer OTHER, MEDICAID, SELFPAY ==
[2022-05-07 12:39] VITALS: BMI 43.0
[2022-05-17] VITALS (9 sets, daily range): BP systolic 122–138; BP diastolic 75–93; PULSE 85–97; TEMP 36.6; BMI 42.2
--- NOTE | 2022-05-17 16:36 | LDADM ---
This patient, Delma Webber, was admitted to Labor/Delivery/Recovery 108 on 05/17/22 at 15:52. Plans for labor, pain management and were discussed with patient. Patient/family oriented to hospital policies and general routines including ID bracelet, bed and alarms, visiting hours, pain management, procedures, bathroom and other care routines, personal items, smoking policy, room service/diet and guest tray routines, security routines, and visiting hours. Patient/Family are encouraged to report perceived risks to care and to ask questions if they do not understand what they are told or what they should do. See OBIX for further documentation.
[2022-05-17 17:11] LABS: Basophils Percent Auto 0.2 % (0.2-1.2); Eosinophils Percent Auto 0.4 % (0-4.4); Hematocrit 34.3 % (37.0-47.0); Hemoglobin 11.9 g/dL (12.0-15.0); Immature Granulocyte Absolute 0.03 K/mm3 (0.00-0.031); Immature Granulocyte Percent A 0.3 % (0-0.5); Lymphocytes Absolute Auto 1.98 K/mm3 (0.9-3.2); Mean Corpuscular HGB Conc 34.7 g/dl (32-36); Mean Corpuscular Hemoglobin 29.8 pg (26-34); Mean Platelet Volume 9.8 fl (7.4-10.4); Monocytes Absolute Auto 0.5 K/mm3 (0.1-0.6); Monocytes Percent Auto 5.6 % (2.6-8.5); Neutrophils Absolute Auto 6.8 K/mm3 (1.3-6.7); Neutrophils Percent Auto 72.5 % (45.5-73.1); Platelet Count Result 233 k/mm3 (150-375); Red Blood Count 3.99 M/mm3 (4.2-5.4); Red Cell Distribution Width 12.9 % (11.5-14.5); White Blood Count 9.4 K/mm3 (4.5-10.0)
[2022-05-17] MEDS: DINOPROSTONE 10 MG VAG INSERT VAGINAL (17:17)
[2022-05-17 17:23] LABS: Alanine Aminotransferase 15 U/L (6-35); Albumin Level 3.6 g/dL (3.5-5.1); Alkaline Phosphatase 145 U/L (38-126); Anion Gap 5 mmol/L (8-16); Aspartate Amino Transferase 21 U/L (14-36); Bilirubin,Total 0.3 mg/dL (0.2-1.3); Blood Urea Nitrogen 7 mg/dL (7-17); Calcium 8.6 mg/dL (8.4-10.2); Carbon Dioxide 21 mmol/L (22-30); Chloride 110 mmol/L (98-107); Estimated CRCL calculation 149 ml/min; Estimated Glomerular Filt Rate > 60; Glucose 101 mg/dL (65-110); Potassium 3.7 mmol/L (3.4-5.0); Sodium 136 mmol/L (137-145); Uric Acid 5.4 mg/dL (2.5-7.5)
[2022-05-17] MEDS: LACTATED RINGERS 1,000 ML 125 ML IV CONT (23:18)
[2022-05-18] VITALS (236 sets, daily range): BP systolic 110–144; BP diastolic 46–111; PULSE 66–161; RESP 18; TEMP 36.2–37.7; O2SAT 88–100
--- NOTE | 2022-05-18 00:12 | WPDANESEPP ---
Anes - Eval Pre Procedure Procedure: Labor epidural Date/Time: 05/18/22 00:12 Surgeon: Diaz Preop Diagnosis: Abdominal pain with contractions Pre Op Diagnosis: IOL Patient Data Age: 27 Gender: F Height: 1.52 m Weight: 98 kg Last Vital Signs Temp 97.8 F 05/17/22 18:30 Pulse 85 05/17/22 22:00 BP 125/91 H 05/17/22 22:00 Pulse Ox 100 05/18/22 00:09 O2 Del Method Room Air 05/17/22 16:34 Allergies Allergy/AdvReac Type Severity Reaction Status Date / Time amoxicillin AdvReac Mild Hives Verified 05/16/22 09:37 latex AdvReac Mild Hives Verified 05/16/22 09:37 Home Medications Medication Instructions Recorded Confirmed Type vitamins-iron fumarate 65 1 tablet PO DAILY 11/01/21 05/16/22 History mg iron-folic acid 1 mg tablet loratadine 10 mg tablet 10 mg PO DAILY #5 tabs 12/16/21 05/16/22 Rx aspirin 81 mg chewable tablet 81 mg PO DAILY 12/26/21 05/16/22 History (Aspirin Childrens) albuterol sulfate 90 mcg/actuation 2 puff inhalation Q4-6H PRN 03/06/22 05/16/22 Rx aerosol inhaler shortness of breath or wheezing 30 days #8.5 grams Laboratory Tests 05/17/22 05/17/22 05/17/22 16:58 16:58 16:58 WBC 9.4 K/mm3 K/mm3 (4.5-10.0) RBC 3.99 M/mm3 L M/mm3 (4.2-5.4) Hgb 11.9 g/dL L g/dL (12.0-15.0) Hct 34.3 % L % (37.0-47.0) MCV 86.0 fl fl (80-100) MCH 29.8 pg pg (26-34) MCHC 34.7 g/dl g/dl (32-36) RDW 12.9 % % (11.5-14.5) Plt Count 233 k/mm3 k/mm3 (150-375) MPV 9.8 fl fl (7.4-10.4) Immature Gran % (Auto) 0.3 % % (0-0.5) Neut % (Auto) 72.5 % % (45.5-73.1) Lymph % (Auto) 21.0 % % (18.3-44.2) [place] % (Auto) 5.6 % % (2.6-8.5) Eos % (Auto) 0.4 % % (0-4.4) Baso % (Auto) 0.2 % % (0.2-1.2) Lymph # (Auto) 1.98 K/mm3 K/mm3 (0.9-3.2) [place] # (Auto) 0.5 K/mm3 K/mm3 (0.1-0.6) Eos # (Auto) 0.0 K/mm3 K/mm3 (0-0.3) Baso # (Auto) 0.0 K/mm3 K/mm3 (0.0-0.1) Abs Immat Gran (auto) 0.03 K/mm3 K/mm3 (0.00-0.031) Absolute Neuts (auto) 6.8 K/mm3 H K/mm3 (1.3-6.7) Absolute Nucleated RBC 0.0 K/mm3 K/mm3 (0.0-0.012) Nucleated RBC % 0.0 % % (0.0-0.2) Sodium Potassium Chloride Carbon Dioxide Anion Gap BUN Creatinine Estim Creat Clear Calc Estimated GFR Glucose Uric Acid Cancelled Calcium Total Bilirubin AST ALT Alkaline Phosphatase Total Protein Albumin RPR Pending Blood Type Antibody Screen 05/17/22 05/17/22 16:58 16:58 WBC RBC Hgb Hct MCV MCH MCHC RDW Plt Count MPV Immature Gran % (Auto) Neut % (Auto) Lymph % (Auto) [place] % (Auto) Eos % (Auto) Baso % (Auto) Lymph # (Auto) [place] # (Auto) Eos # (Auto) Baso # (Auto) Abs Immat Gran (auto) Absolute Neuts (auto) Absolute Nucleated RBC Nucleated RBC % Sodium 136 mmol/L L mmol/L (137-145) Potassium 3.7 mmol/L mmol/L (3.4-5.0) Chloride 110 mmol/L H mmol/L (98-107) Carbon Dioxide 21 mmol/L L mmol/L (22-30) Anion Gap 5 mmol/L L mmol/L (8-16) BUN 7 mg/dL mg/dL (7-17) Creatinine 0.50 mg/dL L mg/dL (0.7-1.0) Estim Creat Clear Calc 149 ml/min ml/min Estimated GFR > 60 (59 - ) Glucose 101 mg/dL mg/dL (65-110) Uric Acid 5.4 mg/dL mg/dL (2.5-7.5) Calcium 8.6 mg/dL mg/dL (8.4-10.2) Total Bilirubin 0
[2022-05-18] MEDS: LACTATED RINGERS 1,000 ML 125 ML IV CONT ×2 (00:36→05:30)
[2022-05-18] MEDS: OXYTOCIN 30 UNITS/NS 500 ML 30 UNITS/500 ML BAG IV CONT (06:37)
[2022-05-18 11:29] LABS: Rapid Plasma Reagin Non-Reactive (NonReactive)
--- NOTE | 2022-05-18 16:13 | P.PCNOB_ITS ---
OB - Delivery Note Procedure Events: Preeclampsia w/o severe features Induction method: Per Cervidil Protocol Delivery augmentation: Rupture of Membranes and Pitocin Delivery monitor: External FHT and Internal Uterine Route of delivery: Episiotomy description: None Laceration Description: Vaginal Delivery repair: chromic Specimen: Yes Quantitative Blood Loss (ml): 300 Anesthesia type: Epidural Disposition: Floor Complications: Shoulder dystocia, resolved with suprapubic pressure Narrative: patient prepped draped usual manner this procedure. Maternal expulsive effort delivered vertex. Left shoulder did not readily deliver and suprapubic pressure did release the shoulder from the pubic bone and the rest of baby delivered without difficulty. Cord was clamped and cut and baby was passed off the operative field. Placenta delivered spontaneously and uterus well contracted. Vaginal laceration was noted and approximated using 2-0 chromic in a running interlocking manner. Immediate postop condition mother both excellent, and left arm was being moved and no evidence of clavicle fracture. [place] Baby Weeks of gestation at delivery: 37 gender: Female Weight (pounds): 7 Weight (ounces): 5 position: Right Occiput Anterior Placenta delivery description: Spontaneous Cord Vessel Description: 3 Vessels score one minute: 4 score five minutes: 8 AMG Delivery Billing Delivery Delivery: Delivery Charge
--- NOTE | 2022-05-18 16:13 | WPDHPUPDATE1 ---
History and Physical Update Update Date/Time: 05/18/22 16:13 History and Physical has been reviewed, including an updated exam of the patient. There are NO changes in the patient's condition. Risks, benefits, and alternatives have been discussed and questions answered. Patient agrees to proceed with procedure.
--- NOTE | 2022-05-18 16:13 | WPDOBADMIT ---
Obstetrics - Admit Note Admission Note: record reviewed. No pertinent additions to the history and/or any subsequent changes in the physical findings that are not consistent with the expected course of the were found. Additions to the history and/or subsequent changes in the physical findings follow. None.
[2022-05-18] MEDS: OXYTOCIN 30 UNITS/NS 500 ML 30 UNITS/500 ML BAG 125 UNITS IV CONT (16:28)
[2022-05-18] MEDS: IBUPROFEN 600 MG TABLET PO ×2 (17:05→23:00)
--- NOTE | 2022-05-18 18:27 | OBPPTRN ---
Patient transferred to post room #284 via W/C. Support person present. Oriented to unit, room, information board, rooming in, admission packet and security measures. Patient verbalizes understanding.
[2022-05-18] MEDS: ACETAMINOPHEN 325 MG TABLET 650 MG PO (23:00)
[2022-05-19 04:30] VITALS: BP 132/78; PULSE 73; RESP 18; TEMP 36.5
[2022-05-19] MEDS: IBUPROFEN 600 MG TABLET PO ×2 (04:30→12:43)
[2022-05-19 05:09] LABS: Hematocrit 29.3 % (37.0-47.0); Hemoglobin 9.8 g/dL (12.0-15.0)
[2022-05-19 09:20] VITALS: BP 121/83; PULSE 82; RESP 16; TEMP 36.4; O2SAT 100
[2022-05-19] MEDS: DOCUSATE SODIUM 100 MG CAPSULE PO ×2 (09:22→15:56)
[2022-05-19] MEDS: POLYSACCHARIDE IRON COMPLEX 150 MG CAPSULE PO ×2 (09:22→15:56)
[2022-05-19] MEDS: MULTIVIT/MIN/PREN/FOL AC/IRON TABLET 1 TAB PO (09:22)
--- NOTE | 2022-05-19 11:51 | WPDANLDPN2 ---
Anes-Prog Note L&D Date/Time: 05/19/22 11:51 Comfortable throughout: labor and delivery Neuraxial method: epidural Epidural/Spinal procedure site: clean & non-tender Neuro status: Neuro function grossly intact. Cardiovascular status: normal Respiratory status: normal Airway patency: baseline Mental status: baseline Post-Op hydration status: normal Vital Signs: Last Vital Signs Temp 36.4 C 05/19/22 09:20 Pulse 82 05/19/22 09:20 Resp 16 05/19/22 09:20 BP 121/83 05/19/22 09:20 Pulse Ox 100 05/19/22 09:20 O2 Del Method Room Air 05/18/22 19:00 Pain score (VAS): 03/20 I/O: Intake & Output 05/18/22 05/19/22 05/19/22 23:59 07:59 15:59 Intake Total 1500 1000 Output Total 400 1300 Balance 1100 -300 Post-procedural complaints: none Patient feedback: Patient satisfied with anesthetic care.
[2022-05-19 12:40] VITALS: BP 134/86; PULSE 81; RESP 16; TEMP 36.3; O2SAT 100
--- NOTE | 2022-05-19 14:37 | PM.OBDSVD ---
DS: Admitting Diagnosis Discharge Date 05/19/2022 Admitting Diagnosis DS: Discharge Diagnosis Discharge Diagnosis (1) , delivered: Code(s): O80 - Encounter for full-term uncomplicated delivery Status: Acute OB - DS: Summary OB Procedures : None OB Procedures Intrapartum: Spontaneous Vag Delivery OB Procedures: : None Time Spent with Patient Time attestation: Total time spent providing and/or coordinating discharge services: DS: Data Data Completed and Pending Pending studies at discharge: Pending at discharge 05/18/22 16:01 Surgical [PTH] Routine Labs on day of discharge: Labs from last 24 hours 05/19/22 04:36 Hgb 9.8 L Hct 29.3 L Discharge Plan Discharge Discharging Clinician: Jaquan Perales Patient Disposition: Home, Self-Care Activity: as tolerated Diet: as tolerated Patient Instructions: Antibiotic Form Stand Alone Forms: General Discharge Information Follow-up/Referrals: Jaquan Perales MD [Physician] - 3 Weeks Discharge Medications: New ibuprofen 600 mg Tablet 600 mg PO Q6H PRN (Reason: Cramping) Qty: 30 0RF Continued albuterol sulfate 90 mcg/actuation HFA aerosol inhaler 2 puff inhalation Q4-6H PRN (Reason: shortness of breath or wheezing) 30 Days Qty: 8.5 0RF Label Comments: Discontinued vit-iron fum-folic ac 65 mg iron- 1 mg tablet 1 tablet PO DAILY loratadine 10 mg tablet 10 mg PO DAILY Qty: 5 0RF Discontinued aspirin [Aspirin Childrens] 81 mg Tablet,Chewable 81 mg PO DAILY Date of admission: 05/17/22 15:52 Primary Care Provider: Vipin,Jeannine Dunn Admitting Provider: Jaquan Perales Attending physician on admission: Jaquan Perales Condition: Stable
[2022-05-19] MEDS: TETANUS,DIPHTHERIA,AC PERTUSSIS ADULT (0.5 ML) BOOSTRIX IM (15:56)
[2022-05-22 08:20] VITALS: BP 136/84; PULSE 69; RESP 16; TEMP 36.6; O2SAT 100
== END 2022-05-19 17:28 | disposition home or self-care (01) | DRG 807 ==
LOC: ANHLDR 16:39 → ANHOB2 05-18 18:29
PROVIDERS: Admitting Provider Obstetrics & Gynecology; PCP Nurse Practitioner Family; Visit Provider Obstetrics & Gynecology
DX: O14.04 Mild to moderate pre-eclampsia, complicating childbirth (principal); Z37.0 Single live birth; Z3A.37 37 weeks gestation of pregnancy; O71.4 Obstetric high vaginal laceration alone; O69.81X0 Labor and delivery complicated by cord around neck, without compression, not applicable or unspecified
CPT/HCPCS: 36415; 80053; 84112; 84550; 85014; 85018; 85025; 86592; 86850; 86900; 86901; 88307; 90715; A9270; J2590; J2795; J7120

== ENCOUNTER 2022-08-28 12:10 | Emergency (ER) | payer OTHER, MEDICAID, SELFPAY ==
--- NOTE | 2022-08-28 12:13 | ED.GENADULT ---
HPI - General Adult General Chief complaint: Allergic Reaction Stated complaint: HIVES Time Seen by Provider: 08/28/22 12:22 Source: patient, RN notes reviewed and old records reviewed Mode of arrival: ambulatory Limitations: no limitations History of Present Illness HPI narrative: 27-year-old female presents to the [facility] with complaints of hives. Patient states they started yesterday. Did change her laundry soap as well as her shampoo and conditioner. States that she did Benadryl last night and it worked well. Denies any lip or tongue swelling. Denies any shortness of breath or wheezing. No chest tightness, chest pain or abdominal pain Onset (ago): day(s) (1) Related Data Allergies Allergy/AdvReac Type Severity Reaction Status Date / Time amoxicillin AdvReac Mild Hives Verified 08/28/22 12:25 latex AdvReac Mild Hives Verified 08/28/22 12:25 Review of Systems Review of Systems: All systems reviewed & are unremarkable except as noted in HPI and below Constitutional: Constitutional: Reports no additional constitutional complaints Eyes: Eyes: Reports no additional eye complaints ENT: Reports system reviewed and no additional complaints, except as documented Cardiovascular: Cardiovascular: Reports no additional cardiovascular complaints, Denies chest pain and Denies dyspnea Respiratory: Respiratory: Reports no additional respiratory complaints, Denies chest congestion, Denies cough and Denies dyspnea Gastrointestinal: Gastrointestinal: Reports no additional gastrointestinal complaints, Denies abdominal pain, Denies nausea and Denies vomiting Musculoskeletal: Musculoskeletal: Reports no additional musculoskeletal complaints Integumentary/Breasts: Skin/Breast: Reports as per HPI and Reports rash Neurologic: Reports system reviewed and no additional complaints, except as documented Psychiatric: Psychiatric: Reports no additional psychiatric complaints Allergic/Immunologic: Allergic/Immunologic: Reports no additional allergic/immunologic complaints [facility] Past Medical History Medical History Abnormal glucose tolerance in Anxiety Asthma as child GERD (gastroesophageal reflux disease) Hearing difficulty Migraines No acute medical problems Suppression of menstruation Family History Family History Father Hypertension Mother Diabetes mellitus Depression Sibling Depression Grandparent Depression Heart disease Cerebrovascular accident Grandparent Lung cancer Heart disease Social History Social History Smoking status: Former smoker Tobacco type: e-cigarettes/vaping Second hand tobacco smoke exposure: No Smoking end date: 09/25/21 Alcohol intake: never Substance use: never Substance use type: does not use Lack of Transportation: No Lack of Food: Never True Current Housing: I Have Housing Concerned About Future Housing: No Difficulty Paying Gas/Electric Bills: No Difficulty Paying for Meds: No Currently Unemployed: No Education: High School Diploma/GED Difficulty w/ Childcare or Family Care: No Living arrangements: other Additional living arrangements comments: 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 There is no relevant family history pertinent to the patient complaint. Exam Const: General: cooperative, healthy appearing, comfortable, no acute distress, well developed, alert and well nourished Nutritional Appearance: we
[2022-08-28 12:16] VITALS: BP 119/69; PULSE 86; RESP 16; TEMP 36.2; O2SAT 100
== END 2022-08-28 12:47 | disposition home or self-care (01) ==
PROVIDERS: Emergency Provider Nurse Practitioner; PCP Nurse Practitioner Family
DX: L50.9 Urticaria, unspecified (principal); K21.9 Gastro-esophageal reflux disease without esophagitis
CPT/HCPCS: 99213; G0463

== ENCOUNTER 2022-09-21 14:46 | Emergency (ER) | payer OTHER, MEDICAID, SELFPAY ==
--- NOTE | 2022-09-21 14:53 | ED.EYEPROB ---
HPI - Eye Problem General Chief complaint: Eye Problems Stated complaint: EYE REDNESS Time Seen by Provider: 09/21/22 14:53 Source: patient Mode of arrival: ambulatory Limitations: no limitations History of Present Illness HPI Narrative: Patient is a 27-year-old female who presents with localized right lower eyelid swelling and tenderness since yesterday. Patient states she has noticed mild discharge and corner of her eye. Patient has been using warm compresses with no relief. Patient states she did use old mascara yesterday. Denies any changes in vision or redness or diffuse swelling to eyelids. Related Data Allergies Allergy/AdvReac Type Severity Reaction Status Date / Time amoxicillin AdvReac Mild Hives Verified 09/21/22 15:01 latex AdvReac Mild Hives Verified 09/21/22 15:01 Review of Systems Review of Systems: All systems reviewed & are unremarkable except as noted in HPI and below Constitutional: Constitutional: Denies body ache(s), Denies fever(s), Denies headache(s), Denies malaise and Denies weakness Eyes: Eyes: Denies blurry vision, Reports eye discharge, Reports irritation, Denies itchy eyes, Denies loss of vision and Reports eye pain ENT: Denies otalgia, Denies headache(s), Denies nasal discharge, Denies sinus pain and Denies sore throat Cardiovascular: Cardiovascular: Denies chest pain, Denies irregular heart rhythm and Denies dyspnea Respiratory: Respiratory: Denies dyspnea Gastrointestinal: Gastrointestinal: Denies abdominal pain, Denies diarrhea, Denies nausea and Denies vomiting Musculoskeletal: Musculoskeletal: Denies back pain, Denies myalgias and Denies arthralgias Integumentary/Breasts: Skin/Breast: Denies pruritus and Denies rash Neurologic: Denies headache(s), Denies loss of vision and Denies weakness Psychiatric: Psychiatric: Reports no additional psychiatric complaints Allergic/Immunologic: Allergic/Immunologic: Reports itchy eyes PMFSH Past Medical History Medical History Abnormal glucose tolerance in Anxiety Asthma as child GERD (gastroesophageal reflux disease) Hearing difficulty Migraines No acute medical problems Suppression of menstruation Family History Family History Father Hypertension Mother Diabetes mellitus Depression Sibling Depression Grandparent Depression Heart disease Cerebrovascular accident Grandparent Lung cancer Heart disease Social History Social History Smoking status: Former smoker Tobacco type: e-cigarettes/vaping Second hand tobacco smoke exposure: No Smoking end date: 09/25/21 Alcohol intake: never Substance use: never Substance use type: does not use Lack of Transportation: No Lack of Food: Never True Current Housing: I Have Housing Concerned About Future Housing: No Difficulty Paying Gas/Electric Bills: No Difficulty Paying for Meds: No Currently Unemployed: No Education: High School Diploma/GED Difficulty w/ Childcare or Family Care: No Living arrangements: other Additional living arrangements comments: 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 There is no relevant family history pertinent to the presenting complaint. Exam Const: General: cooperative, healthy appearing, comfortable, no acute distress and well nourished Nutritional Appearance: well nourished Orientation/consciousness: patient oriented x3 Limitations: no limitations HENMT: Head: normal to inspection, normocephalic and at
[2022-09-21 14:55] VITALS: BP 114/65; PULSE 84; RESP 16; TEMP 36.5; O2SAT 100
== END 2022-09-21 15:38 | disposition home or self-care (01) ==
PROVIDERS: Emergency Provider Nurse Practitioner Family; PCP Nurse Practitioner Family
DX: H00.012 Hordeolum externum right lower eyelid (principal); K21.9 Gastro-esophageal reflux disease without esophagitis; Z87.891 Personal history of nicotine dependence
CPT/HCPCS: 99213; G0463

== ENCOUNTER 2023-02-05 16:50 | Emergency (ER) | payer OTHER, MEDICAID, SELFPAY ==
--- NOTE | ~2023-02-05 | XR_ITS ---
EXAM: XR foot LT min 3V DATE: 02/05/2023 17:27 HISTORY: DROPPED AN OBJECTED ON LEFT 1ST DIGIT OF FOOT . COMPARISON: None available. FINDINGS: Normal mineralization. No fracture or dislocation. No lytic or blastic lesion. Joint space s are maintained. Plantar enthesopathy. Small osteophyte/osteochondroma on the dorsal aspect of the f orefoot, seen best in the lateral view. No erosion or periosteal change. Soft tissues within normal l imits. IMPRESSION: No acute osseous finding in the left foot. Reviewed, dictated and finalized at location K. C++ QUANT DEVELOPER
[2023-02-05 17:02] VITALS: BP 114/64; PULSE 87; RESP 20; TEMP 36.3; O2SAT 100
--- NOTE | 2023-02-05 17:50 | ED.LOWEXIN ---
HPI - Extremity Injury (Lower) General Chief Complaint: Extremity Injury, Lower Stated Complaint: foot injury Time Seen by Provider: 02/05/23 17:37 History of Present Illness HPI Narrative: Pt dropped canned yam on foot and big toe 3 days ago. Pt complains of persistent pain in foot. Related Data Allergies Allergy/AdvReac Type Severity Reaction Status Date / Time amoxicillin AdvReac Mild Hives Verified 02/05/23 17:39 latex AdvReac Mild Hives Verified 02/05/23 17:39 Review of Systems Review of Systems: All systems reviewed & are unremarkable except as noted in HPI and below PMFSH Past Medical History Medical History Abnormal glucose tolerance in Anxiety Asthma as child GERD (gastroesophageal reflux disease) Hearing difficulty Migraines No acute medical problems Suppression of menstruation Family History Family History Father Hypertension Mother Diabetes mellitus Depression Sibling Depression Grandparent Depression Heart disease Cerebrovascular accident Grandparent Lung cancer Heart disease Social History Social History Smoking status: Former smoker Tobacco type: e-cigarettes/vaping Second hand tobacco smoke exposure: No Smoking end date: 09/25/21 Alcohol intake: never Substance use: never Substance use type: does not use Lack of Transportation: No Lack of Food: Never True Current Housing: I Have Housing Concerned About Future Housing: No Difficulty Paying Gas/Electric Bills: No Difficulty Paying for Meds: No Currently Unemployed: No Education: High School Diploma/GED Difficulty w/ Childcare or Family Care: No Living arrangements: other Additional living arrangements comments: 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 Gender identity (if verbalized by the patient): Female Sexual Orientation (if Verbalized by the Patient): Straight or Heterosexual Spiritual care concerns: No Exam Const: General: healthy appearing and no acute distress Nutritional Appearance: well nourished Orientation/consciousness: patient oriented x3 Skin: General skin exam: normal color Rashes: no rashes Wounds: no wounds Neuro: General: patient oriented x3, moves all extremities and no focal motor deficits Extrem: Other: bruising to 1st mtp joint right foot no swelling Psych: Mental Status: mental status grossly normal Affect: normal affect Attitude: cooperative Course Vital Signs Vital signs: Vital Signs Temperature 97.4 F L 02/05/23 17:02 Pulse Rate 87 02/05/23 17:02 Respiratory Rate 20 02/05/23 17:02 Blood Pressure 114/64 02/05/23 17:02 Pulse Oximetry 100 02/05/23 17:02 Oxygen Delivery Room Air 02/05/23 17:02 Temperature 97.4 F L 02/05/23 17:02 Pulse Rate 87 02/05/23 17:02 Respiratory Rate 20 02/05/23 17:02 Blood Pressure 114/64 02/05/23 17:02 Pulse Oximetry 100 02/05/23 17:02 Oxygen Delivery Room Air 02/05/23 17:02 MDM - Extremity Injury (Lower) MDM Narrative Medical decision making narrative: x rays neg Discharge Plan Discharge Clinical Impression: Contusion Patient Disposition: Home, Self-Care Condition: Stable Instructions: Antibiotic Form, Contusion in Adults (ED) Additional Instructions: ice elevate motrin for pain, hard soled open toes shoes Prescriptions: No Action erythromycin 5 mg/gram (0.5 %) ointment 0.5 inch EACH EYE TID 7 Days Qty: 3.5 0RF Follow-up/Referrals: Hopaj,Jeannine Dunn APRN [Primary Care Provider] -
== END 2023-02-05 18:25 | disposition home or self-care (01) ==
LOC: ANHED 18:17
PROVIDERS: Emergency Provider Emergency Medicine; PCP Nurse Practitioner Family
DX: S90.32XA Contusion of left foot, initial encounter (principal); F41.9 Anxiety disorder, unspecified; K21.9 Gastro-esophageal reflux disease without esophagitis; Y29.XXXA Contact with blunt object, undetermined intent, initial encounter
CPT/HCPCS: 73630; 99283

== ENCOUNTER 2023-05-11 15:15 | Emergency (ER) | payer BC, SELFPAY ==
[2023-05-11 15:30] VITALS: BP 119/64; PULSE 140; RESP 18; TEMP 37.7
--- NOTE | 2023-05-11 15:35 | ED.GENADULT ---
HPI - General Adult General Chief complaint: Upper Respiratory Infection Stated complaint: sore throat,right ear pain Source: patient, RN notes reviewed and old records reviewed Mode of arrival: ambulatory Limitations: no limitations History of Present Illness HPI narrative: 28-year-old female presents to [facility] with complaint of sore throat and right earache that started . Patient states has slight cough, congestion but denies any other symptoms. Related Data Allergies Allergy/AdvReac Type Severity Reaction Status Date / Time amoxicillin AdvReac Mild Hives Verified 05/11/23 15:19 latex AdvReac Mild Hives Verified 05/11/23 15:19 Review of Systems Constitutional: Constitutional: Reports no additional constitutional complaints, Denies body ache(s), Denies chills, Denies fatigue, Denies fever(s) and Denies headache(s) Eyes: Eyes: Reports no additional eye complaints and Denies blurry vision ENT: Reports system reviewed and no additional complaints, except as documented, Denies vertigo, Denies dizziness, Denies ear discharge, Reports otalgia, Denies facial pain, Denies headache(s), Reports nasal congestion, Denies nasal discharge, Denies sinus pain, Denies sinus pressure and Reports sore throat Cardiovascular: Cardiovascular: Reports no additional cardiovascular complaints, Denies chest pain, Denies chest pain at rest, Denies rapid heart rate and Denies dyspnea Respiratory: Respiratory: Reports no additional respiratory complaints, Denies chest congestion, Reports cough, Denies pain on inspiration, Denies pain with cough and Denies dyspnea Gastrointestinal: Gastrointestinal: Denies abdominal pain, Denies diarrhea, Denies nausea and Denies vomiting Integumentary/Breasts: Skin/Breast: Denies rash Neurologic: Reports system reviewed and no additional complaints, except as documented, Denies vertigo, Denies dizziness and Denies headache(s) Endocrine: Endocrine: Denies fatigue PMF Past Medical History Medical History Abnormal glucose tolerance in Anxiety Asthma as child GERD (gastroesophageal reflux disease) Hearing difficulty Migraines No acute medical problems Suppression of menstruation Family History Family History Father Hypertension Mother Diabetes mellitus Depression Sibling Depression Grandparent Depression Heart disease Cerebrovascular accident Grandparent Lung cancer Heart disease Social History Social History Smoking status: Former smoker Tobacco type: e-cigarettes/vaping Second hand tobacco smoke exposure: No Smoking end date: 09/25/21 Alcohol intake: never Substance use: never Substance use type: does not use Lack of Transportation: No Lack of Food: Never True Current Housing: I Have Housing Concerned About Future Housing: No Difficulty Paying Gas/Electric Bills: No Difficulty Paying for Meds: No Currently Unemployed: No Education: High School Diploma/GED Difficulty w/ Childcare or Family Care: No Living arrangements: other Additional living arrangements comments: 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 There is no relevant family history pertinent to the patient complaint. Exam Const: General: cooperative, healthy appearing, no acute distress and well nourished Nutritional Appearance: well nourished Orientation/consciousness: patient oriented x3 Limitations: no limitations HENMT: Head: normal
[2023-05-11 15:53] VITALS: PULSE 138
== END 2023-05-11 15:53 | disposition home or self-care (01) ==
PROVIDERS: Emergency Provider Registered Nurse
DX: J02.0 Streptococcal pharyngitis (principal); Z20.822 Contact with and (suspected) exposure to COVID-19; K21.9 Gastro-esophageal reflux disease without esophagitis
CPT/HCPCS: 87426; 87804; 87880; 99213; G0463

== ENCOUNTER 2023-09-11 13:21 | Outpatient (CLI) | payer OTHER, MEDICAID, SELFPAY ==
--- NOTE | ~2023-09-11 | US_ITS ---
EXAMINATION: US OB /maternal detail DATE: 09/11/2023 15:37 INDICATION: Encounter for supervision of normal . TECHNIQUE: Real-time ultrasound of the pelvis was performed. COMPARISON: Ultrasound 08/07/2023 FINDINGS: There is a single living fetus in vertex presentation. The placenta is anterior. The cervical length is 4.8 cm on transabdominal images, which is normal. heart rate is 144 beats per minute (bpm). The amniotic fluid volume is surgically normal. The deepest vertical pocket is 4.1 cm, which is norm al. The following biometric data were obtained: Biparietal diameter (BPD): 4.7 cm; head circumference (HC): 18.0 cm; abdominal circumference (AC): 16 .2 cm; femur length (FL): 3.3 cm. These measurements are concordant. Estimated weight is 376 g +/- 56 g, which correlates with the 48th percentile when 01/24/24 is used as estimated date of delivery. As single measurements, these parameters are each equal to the following estimated gestational ages: BPD: 20 weeks 1 days. HC: 20 weeks 3 days. AC: 21 weeks 2 days. FL: 20 weeks 2 days. estimated gestational age based solely on measurements from this exam is 20 weeks 4 days +/- 1 weeks 3 days. The cerebral ventricles, cerebellum, cisterna magna, nuchal fold, lip, and visualized portions of the spine are normal. The heart is normal. The diaphragm, stomach, kidneys, and bladder are normal. Ther e are two umbilical arteries to yield a 3-vessel cord. The cord insertion is normal. IMPRESSION: 1. Single living fetus in vertex presentation. 2. Estimated weight is 376 g +/- 56 g, which correlates with the 48th percentile when 01/24/24 is used as estimated date of delivery. 3. Normal anatomic survey. Reviewed, dictated and finalized at location A. IMPRESSION: 1. Single living fetus in vertex presentation. 2. Estimated weight is 376 g +/- 56 g, which correlates with the 48th pe rcentile when 01/24/24 is used as estimated date of delivery. 3. Normal anatomic survey.
== END 2023-09-11 13:22 | disposition home or self-care (01) ==
PROVIDERS: Visit Provider Obstetrics & Gynecology
DX: Z34.90 Encounter for supervision of normal pregnancy, unspecified, unspecified trimester (principal)
CPT/HCPCS: 76805

== ENCOUNTER 2023-11-21 10:01 | Emergency (ER) | payer OTHER, MEDICAID, SELFPAY ==
[2023-11-21 10:22] VITALS: BP 115/72; PULSE 106; RESP 16; TEMP 36.2; O2SAT 100
--- NOTE | 2023-11-21 10:30 | ED.URI ---
HPI - URI/Sore Throat General Chief Complaint: Upper Respiratory Infection Stated Complaint: CONGESTION/EARS/HEADACHE Time Seen by Provider: 11/21/23 10:30 Source: patient Mode of arrival: ambulatory Limitations: no limitations History of Present Illness HPI Narrative: 28 year old female presents to [facility] with complaints nasal congestion with drainage, headache, and bilateral ear mittal, cough since yesterday. Patient reports that she had 101F temperature this morning and took Tylenol with no fever at time of triage. Patient is and due to deliver January 24 2024. Patient reports that she did cough up some mucous yesterday that was greenish and yellow but none today. Patient reports that she feels like she did when she had COVID in the past MD elicited complaint: fever, cough, sore throat, rhinorrhea, nasal congestion and other (headache, ear pain) Onset (ago): day(s) (day 2 of symptoms) Consistency: constant Pain scale (0-10): 5 Description of mucous: yellow and green Able to tolerate fluids by mouth: Yes Treatments prior to arrival: acetaminophen Related Data Home Medications Medication Instructions Recorded Confirmed aspirin 81 mg tablet,delayed 162 mg PO DAILY 08/12/23 11/21/23 release (Adult Low Dose Aspirin) vits no.126-ferrous fum 1 tablet PO DAILY 09/16/23 11/21/23 28 mg iron-folic acid 800 mcg tablet (Classic ) Allergies Allergy/AdvReac Type Severity Reaction Status Date / Time amoxicillin AdvReac Mild Hives Verified 11/21/23 10:19 latex AdvReac Mild Hives Verified 11/21/23 10:19 Review of Systems Review of Systems: CONSTITUTIONAL: Reports malaise, chills, sweats, or fever. EYES: Denies visual changes, redness, or discharge. ENT: Reports rhinorrhea, congestion,no sinus pain,bilateral otalgia and positive sore throat. CARDIOVASCULAR: Denies chest pain, palpitations, or edema. RESPIRATORY: Reports cough.? Denies dyspnea. GASTROINTESTINAL: Denies abdominal pain, nausea, vomiting, diarrhea SKIN: Denies rash or itching. MUSCULOSKELETAL: Denies myalgia. NEUROLOGIC: Reports headache. All systems reviewed & are unremarkable except as noted in HPI and below PMFSH Past Medical History Medical History Abnormal glucose tolerance in Anxiety Asthma as child GERD (gastroesophageal reflux disease) Hearing difficulty Migraines No acute medical problems Suppression of menstruation Family History Family History Father Hypertension Mother Diabetes mellitus Depression Sibling Depression Grandparent Depression Heart disease Cerebrovascular accident Grandparent Lung cancer Heart disease Social History Social History Smoking status: Former smoker Tobacco type: e-cigarettes/vaping Second hand tobacco smoke exposure: No Smoking end date: 09/25/21 Alcohol intake: never Substance use: never Substance use type: does not use Lack of Transportation: No Lack of Food: Never True Current Housing: I Have Housing Concerned About Future Housing: No Difficulty Paying Gas/Electric Bills: No Difficulty Paying for Meds: No Currently Unemployed: No Education: High School Diploma/GED Difficulty w/ Childcare or Family Care: No Living arrangements: other Additional living arrangements comments: 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 There is no relevant family history pertinent to the presenting complaint Exam Narrat
[2023-11-21 10:41] LABS: EDCOVIDSCREEN Negative (Negative); EDSTREPNEGPOS1 Negative (Negative)
[2023-11-21 10:41] LABS: EDINFLUASCREEN Negative (Negative); EDINFLUBSCREEN Negative (Negative)
== END 2023-11-21 11:05 | disposition home or self-care (01) ==
PROVIDERS: Emergency Provider Registered Nurse; PCP Obstetrics & Gynecology
DX: O99.891 Other specified diseases and conditions complicating pregnancy (principal); H92.03 Otalgia, bilateral; O99.519 Diseases of the respiratory system complicating pregnancy, unspecified trimester; J06.9 Acute upper respiratory infection, unspecified; Z3A.00 Weeks of gestation of pregnancy not specified; Z20.822 Contact with and (suspected) exposure to COVID-19; O99.619 Diseases of the digestive system complicating pregnancy, unspecified trimester; K21.9 Gastro-esophageal reflux disease without esophagitis
CPT/HCPCS: 87081; 87635; 87804; 87880; 99213; G0463

== ENCOUNTER 2024-01-06 08:20 | Outpatient (CLI) | payer OTHER, MEDICAID, SELFPAY ==
--- NOTE | ~2024-01-06 | US_ITS ---
EXAMINATION: US OB follow up DATE: 01/06/2024 08:45 INDICATION: Encounter for supervision of normal . Third trimester. TECHNIQUE: Real-time ultrasound of the pelvis was performed. COMPARISON: Ultrasound 09/11/2023. FINDINGS: There is a single living fetus in vertex presentation. The placenta is anterior. The cervical length is 2.6 cm on transabdominal images, which is normal. heart rate is 143 beats per minute (bpm). The amniotic fluid index is 9.1 cm, which is normal. The following biometric data were obtained: Biparietal diameter (BPD): 8.7 cm; head circumference (HC): 32.0 cm; abdominal circumference (AC): 32 .5 cm; femur length (FL): 6.8 cm. These measurements are concordant. Estimated weight is 2762 g +/- 414 g, which correlates with the 18th percentile when 01/24/24 i s used as estimated date of delivery. As single measurements, these parameters are each equal to the following estimated gestational ages: BPD: 35 weeks 0 days. HC: 36 weeks 0 days. AC: 36 weeks 3 days. FL: 34 weeks 5 days. estimated gestational age based solely on measurements from this exam is 35 weeks 4 days +/- 2 weeks 3 days. IMPRESSION: 1. Single living fetus in vertex presentation. 2. Estimated weight is 2762 g +/- 414 g, which correlates with the 18th percentile when is used as estimated date of delivery. Reviewed, dictated and finalized at location [] IMPRESSION: 1. Single living fetus in vertex presentation. 2. Estimated weight is 2762 g +/- 414 g, which correlates with the 18th percentile when 01/24/24 is used as estimated date of delivery.
== END 2024-01-06 08:21 | disposition home or self-care (01) ==
LOC: MICIMG 08:20
PROVIDERS: PCP Obstetrics & Gynecology; Visit Provider Obstetrics & Gynecology
DX: Z34.83 Encounter for supervision of other normal pregnancy, third trimester (principal); Z3A.35 35 weeks gestation of pregnancy
CPT/HCPCS: 76816

== ENCOUNTER 2024-01-15 11:25 | Outpatient (CLI) | payer OTHER, MEDICAID, SELFPAY ==
[2024-01-15 12:28] VITALS: BP 122/70; PULSE 90
--- NOTE | 2024-01-15 12:31 | PM.OBTRLD ---
OB - Triage/Final Diagnosis Visit Information Date of evaluation: 01/15/24 Reason for evaluation: threatened labor Comments/Additional reasons for admission: I have assessed the risk for this patient, Delma Webber, and determined that she would benefit from observation care.
[2024-01-15 12:48] LABS: OBXCEM ROM Plus Negative (Negative)
== END 2024-01-15 12:45 | disposition home or self-care (01) ==
LOC: ANHOBOP 12:16 → ANHLDR 13:52
PROVIDERS: Student in an Organized Health Care Education/Training Program; Referring Provider Obstetrics & Gynecology; Visit Provider Obstetrics & Gynecology
DX: O42.90 Premature rupture of membranes, unspecified as to length of time between rupture and onset of labor, unspecified weeks of gestation (principal); Z3A.00 Weeks of gestation of pregnancy not specified
CPT/HCPCS: 59025; 84112; 99199

== ENCOUNTER 2024-01-23 04:55 | Inpatient (IN) | payer OTHER, MEDICAID, SELFPAY ==
[2024-01-23] VITALS (114 sets, daily range): BP systolic 99–167; BP diastolic 45–131; PULSE 62–235; RESP 16–18; TEMP 36.1–36.9; O2SAT 93–100; BMI 40.8
--- NOTE | 2024-01-23 05:29 | LDADM ---
This patient, Delma Webber, was admitted to Labor/Delivery/Recovery 102 on 01/23/24 at 04:55. Plans for labor, pain management and were discussed with patient. Patient/family oriented to hospital policies and general routines including ID bracelet, bed and alarms, visiting hours, pain management, procedures, bathroom and other care routines, personal items, smoking policy, room service/diet and guest tray routines, security routines, and visiting hours. Patient/Family are encouraged to report perceived risks to care and to ask questions if they do not understand what they are told or what they should do. See OBIX for further documentation.
[2024-01-23 05:32] LABS: Basophils Percent Auto 0.3 % (0.2-1.2); Eosinophils Absolute Auto 0.1 K/mm3 (0-0.3); Eosinophils Percent Auto 0.8 % (0-4.4); Hemoglobin 11.7 g/dL (12.0-15.0); Immature Granulocyte Absolute 0.03 K/mm3 (0.00-0.031); Immature Granulocyte Percent A 0.3 % (0-0.5); Lymphocytes Absolute Auto 2.93 K/mm3 (0.9-3.2); Lymphocytes Percent Auto 32.6 % (18.3-44.2); Mean Corpuscular HGB Conc 34.4 g/dl (32-36); Mean Corpuscular Hemoglobin 28.7 pg (26-34); Mean Corpuscular Volume 83.3 fl (80-100); Mean Platelet Volume 10.6 fl (7.4-10.4); Monocytes Absolute Auto 0.6 K/mm3 (0.1-0.6); Monocytes Percent Auto 6.1 % (2.6-8.5); Neutrophils Absolute Auto 5.4 K/mm3 (1.3-6.7); Neutrophils Percent Auto 59.9 % (45.5-73.1); Platelet Count Result 219 k/mm3 (150-375); Red Blood Count 4.08 M/mm3 (4.2-5.4)
[2024-01-23] MEDS: OXYTOCIN 30 UNITS/NS 500 ML 30 UNITS/500 ML BAG IV CONT (06:01)
[2024-01-23] MEDS: LACTATED RINGERS 1,000 ML 125 ML IV CONT ×2 (06:02→09:03)
[2024-01-23 06:22] LABS: HIV 1/2 Ab P24 Ag Result Negative (Negative)
--- NOTE | 2024-01-23 12:45 | WPDHPUPDATE1 ---
History and Physical Update Update Date/Time: 01/23/24 12:45 History and Physical has been reviewed, including an updated exam of the patient. There are NO changes in the patient's condition. Risks, benefits, and alternatives have been discussed and questions answered. Patient agrees to proceed with procedure.
--- NOTE | 2024-01-23 12:46 | PM.OBPRVD ---
OB - Vaginal Delivery Note Procedure Delivery date: 01/23/24 Induction method: Per Pitocin Protocol Delivery augmentation: Rupture of Membranes Delivery monitor: External FHT and External Uterine Route of delivery: Episiotomy description: None Laceration Description: None Specimen: No Quantitative Blood Loss (ml): 400 Anesthesia type: Epidural Disposition: Floor Complications: No immediate complications Narrative: patient prepped and draped usual manner for this procedure. Maternal expulsive efforts readily deliver vertex, nuchal cord was noted and reduced without difficulty. Rest of baby delivered without difficulty, cord clamped cut. Placenta delivered spontaneously is uterus well contracted. Cervix vagina vulva for inspected with no lacerations or tears. Uterus well contracted with minimal bleeding. At this point procedure was considered terminated with immediate postoperative condition of mother baby both excellent. Baby Gestational Age by Date: 39 Infant gender: Male presentation: vertex position: Right Occiput Anterior Placenta delivery description: Spontaneous Cord Vessel Description: 3 Vessels, Nuchal Cord and Reduced
[2024-01-23] MEDS: OXYTOCIN 30 UNITS/NS 500 ML 30 UNITS/500 ML BAG 125 UNITS IV CONT (13:11)
[2024-01-23 14:15] LABS: Rapid Plasma Reagin Non-Reactive (NonReactive)
[2024-01-23] MEDS: DOCUSATE SODIUM 100 MG CAPSULE PO (17:06)
[2024-01-23] MEDS: IBUPROFEN 600 MG TABLET PO (17:06)
--- NOTE | 2024-01-23 17:32 | OBPPTRN ---
Patient transferred to post room #292 via (wheelchair). Support person present. Oriented to unit, room, information board, rooming in, admission packet and security measures. Patient verbalizes understanding.
[2024-01-24 04:27] VITALS: BP 130/86; PULSE 86; RESP 18; TEMP 36.8; O2SAT 100
[2024-01-24] MEDS: IBUPROFEN 600 MG TABLET PO (04:30)
[2024-01-24 04:54] LABS: Hematocrit 29.2 % (37.0-47.0); Hemoglobin 9.8 g/dL (12.0-15.0)
[2024-01-24 07:35] VITALS: BP 136/87; PULSE 85; RESP 16; TEMP 36.7; O2SAT 99
[2024-01-24] MEDS: ACETAMINOPHEN 325 MG TABLET 650 MG PO (08:11)
[2024-01-24] MEDS: MULTIVIT/MIN/PREN/FOL AC/IRON TABLET 1 TAB PO (08:12)
[2024-01-24] MEDS: POLYSACCHARIDE IRON COMPLEX 150 MG CAPSULE PO (08:12)
[2024-01-24] MEDS: DOCUSATE SODIUM 100 MG CAPSULE PO (08:12)
--- NOTE | 2024-01-24 08:57 | PM.OBDSVD ---
DS: Admitting Diagnosis Discharge Date 01/24/2024 Admitting Diagnosis DS: Discharge Diagnosis Discharge Diagnosis (1) , delivered: Code(s): O80 - Encounter for full-term uncomplicated delivery Status: Acute OB - DS: Summary OB Procedures : None OB Procedures Intrapartum: Spontaneous Vag Delivery OB Procedures: : None Peripartum Data Laceration Description: None Episiotomy description: None Time Spent with Patient Time attestation: Total time spent providing and/or coordinating discharge services: DS: Data Data Completed and Pending Labs on day of discharge: Labs from last 24 hours 01/24/24 01/23/24 04:34 05:26 Hgb 9.8 L Hct 29.2 L RPR Non-reactive Discharge Plan Discharge Discharging Clinician: Jaquan Perales Patient Disposition: Home, Self-Care Activity: as tolerated Diet: as tolerated Patient Instructions: Antibiotic Form Stand Alone Forms: General Discharge Information Follow-up/Referrals: Jaquan Perales MD [Physician] - 3 Weeks Discharge Medications: New ibuprofen 600 mg tablet 600 mg PO TID Qty: 20 0RF ibuprofen 600 mg Tablet 600 mg PO Q6H PRN (Reason: Cramping) Qty: 20 0RF Continued Classic 28 mg iron- 800 mcg tablet 1 tablet PO DAILY Discontinued aspirin [Adult Low Dose Aspirin] 81 mg tablet,delayed release (DR/EC) 162 mg PO DAILY Date of admission: 01/23/24 04:55 Primary Care Provider: UNKNOWN,DOCTOR Admitting Provider: Jaquan Perales Attending physician on admission: Jaquan Perales Condition: Stable
--- NOTE | 2024-01-24 10:41 | WPDANLDPN2 ---
Anes-Prog Note L&D Date/Time: 01/24/24 10:41 Comfortable throughout: labor and delivery Neuraxial method: epidural Epidural/Spinal procedure site: clean & non-tender Neuro status: Neuro function grossly intact. Cardiovascular status: normal Respiratory status: normal Airway patency: baseline Mental status: baseline Post-Op hydration status: normal Vital Signs: Last Vital Signs Temp 36.7 C 01/24/24 07:35 Pulse 85 01/24/24 07:35 Resp 16 01/24/24 07:35 BP 136/87 01/24/24 07:35 Pulse Ox 99 01/24/24 07:35 O2 Del Method Room Air 01/24/24 08:15 Pain score (VAS): 0/10 I/O: Intake & Output 01/23/24 01/24/24 01/24/24 23:59 07:59 15:59 Intake Total 500 240 Balance 500 240 Post-procedural complaints: none Patient feedback: Patient satisfied with anesthetic care.
[2024-01-24 12:55] VITALS: BP 129/78; PULSE 84; RESP 16; TEMP 36.8; O2SAT 100
--- NOTE | 2024-01-24 14:33 | PC.NURSE ---
1000 Introductions were made, then consulted with patient to assess needs related to . Discussed with mother her?plans to feed?her infant and the?experience so far. Per mother she would like to put baby to breast if he will latch, if not then she would like to pump and bottle feed. Baby had been sleepy and had received a few bottles of formula over night. Baby is due to feed now, advised mother to place baby skin to skin, watch for feeding cues and RN would return. Mother does have her own breast pump, it is a [employer]oh Breast pump. Instructions given on cleaning, care, usage, that there should be no pain, pumping schedule for milk production, collection, and storage of human milk. Patient was assessed for correct placement, flange size (both nipples measured 21mm and she is using the size 24 flange for her pump), to pump for comfort and nipple stretching/stimulation for adequate milk production, if baby does not effectively feed at the breast then she should use the breast pump and if only pumping then use the pump every 3 hours (8 times in 24 hours) 1-2 times at night. Parents are encouraged to record the pumping schedule on the feeding sheet.?Mother voiced understanding of the education shared along with mom/baby guide and the pump measurement, flange fit handout for additional resource information. Resources provided for inpatient and outpatient services with the feeding sheet, mom/baby guide and name written on the communication board. Mother voiced understanding of information and will call if there is a request for assistance. Reported to the Primary RN. 1016 Mother called for RN to assist with latch and positioning baby. We reviewed working with the infant, supporting breast, protecting her nipples with an optimal deep latch, good positioning, and good hand washing. Encouraged understanding the benefits of skin to skin, responding to feeding cues, frequencies of feeding 8-12 times in 24 hours (approximately 2-3 hours), duration of feedings, milk production, intake/output feeding sheet and signs of adequate intake encouraging swallowing at the breast. Reviewed positioning and alignment, supporting breast, off-centered (asymmetrical latch) and leading with the chin with big, open, wide gape. Infant latched optimally to the [right] breast in [cross cradle] position. Education given to the mother of how to visualize the suckling (with good rocking jaw motion) swallows (dropping of the lower jaw) and how to listen for drinking at the breast (the ka sound). The infant was [able] to maintain latch without discomfort to mother for 5 mins, mother's younger child in room and was upset, mother gave to grandmother to feed a formula bottle so she could tend to her other child. Nipple care reviewed with optimal latch, good positioning and using clean hands when touching her breast. Resources used to facilitate learning were used from the [visual handouts (Breast pump, Latching and Early Weeks), mom and baby guide]. Mother voiced understanding of the education shared, to call for assistance if the does not latch or if there is discomfort with . Reported to the Primary RN. 1420 RN went in room to see how feedings were going, per mother baby had just latched at 1400 for only a few minutes and father of the baby fed him a formula bottle of 7mls, RN advised parents that if bottle feeding baby should take 15-20mls per feed and increase as needed, see discharge instructions. Advised mother if baby does not effectively feed at the breast, to protect her milk supply, she needs to use her breast pump as previously discussed. Reported to Primary RN.
[2024-01-24] MEDS: MEASLES,MUMPS,RUBELLA VACCINE 0.5 ML VIAL SUB-Q (14:53)
[2024-01-27 09:22] VITALS: BP 135/78; PULSE 73; RESP 18; TEMP 36.6; O2SAT 100
== END 2024-01-24 15:28 | disposition home or self-care (01) | DRG 807 ==
LOC: ANHLDR 05:27 → ANHOB2 16:16
PROVIDERS: Admitting Provider Obstetrics & Gynecology; Visit Provider Obstetrics & Gynecology
DX: O62.3 Precipitate labor (principal); Z37.0 Single live birth; O69.81X0 Labor and delivery complicated by cord around neck, without compression, not applicable or unspecified; Z3A.39 39 weeks gestation of pregnancy
CPT/HCPCS: 36415; 85014; 85018; 85025; 86592; 86703; 86850; 86900; 86901; 90710; A9270; G0432; J2590; J2795; J7120

== ENCOUNTER 2024-08-07 06:15 | Observation (INO) | payer OTHER, SELFPAY ==
--- NOTE | ~2024-08-07 | US_ITS ---
US right upper quadrant INDICATION: Elevated liver enzymes PROCEDURE: Realtime right upper abdominal ultrasound. COMPARISON: No prior studies for comparison. FINDINGS: The pancreas is normal without focal mass or pancreatic ductal dilation. Liver echotexture is normal without focal mass or intrahepatic biliary dilatation. There is normal directional flow i n the portal vein. There are gallstones. No gallbladder wall thickening or pericholecystic fluid. There is a nondependen t gallbladder mass measuring 1.2 x 0.6 x 1.2 cm with internal vascularity, consistent with gallbladde r polyp. Common bile duct measures 6 mm. No sonographic Madrid's sign. IMPRESSION: 1: Suspicious nondependent 1.2 cm gallbladder mass with internal vascularity, consistent with a polyp , at increased risk for malignancy. Recommend surgical consultation. Reviewed, dictated and finalized at location A. IMPRESSION: 1: Suspicious nondependent 1.2 cm gallbladder mass with internal vascularity, c onsistent with a polyp, at increased risk for malignancy. Recommend surgical co nsultation.
--- NOTE | ~2024-08-07 | MR_ITS ---
EXAMINATION: MR MRCP wo/w con/w 3D wo ind DATE: 08/08/2024 12:09 INDICATION: Transaminitis TECHNIQUE: Magnetic resonance imaging (MRI) of the abdomen was performed without and with 15 mL Multi krishna intravenous contrast. Sequences included coronal T2-weighted SS-FSE, coronal T2-weighted FS SS- FSE, coronal T2-weighted FS FIESTA, axial T2-weighted FS FIESTA, axial T2-weighted FIESTA, sagittal T 2-weighted SS-FSE, axial T1-weighted dual-echo FSPGR, axial T2-weighted SS-FSE, axial T1-weighted LAV A, axial T2-weighted STIR FSE. Thick-slab T2-weighted FRFSE-XL images were obtained for magnetic reso nance cholangiopancreatography (MRCP). Rotating maximum intensity projection 3-D reconstructions of t he volumetric data were created by the technologist. Postcontrast sequences included a time course of axial T1-weighted LAVA. COMPARISON: CT and ultrasound studies dated 08/07/2024 FINDINGS: ABDOMEN MRI: Heart size is normal. No pericardial or pleural effusion. There are a few low signal int ensity gallstones within the otherwise normal gallbladder. Mild intrahepatic biliary ductal dilation. Liver is otherwise unremarkable. Spleen, pancreas, bilateral adrenal glands and kidneys are normal. Visualized portions of bowels are unremarkable. No pathologically enlarged abdominal or upper pelvic lymphadenopathy. Minimal lumbar spondylosis with slight disc desiccation and mild right-sided disc he ight loss at L4-L5. Normal bone marrow signal throughout. ABDOMEN MRCP: The common hepatic and common bile ducts are dilated to 8 mm. There is suggestion of a 3 mm low signa l intensity stone at the distalmost common bile duct. There is mild central intrahepatic biliary duct al dilation. IMPRESSION: 1. Cholelithiasis and likely choledocholithiasis with suggestion of a 3 mm stone at the distalmost co mmon bile duct and mild secondary intrahepatic biliary ductal dilation and dilation of the common hep atic and bile ducts, each measuring up to 8 mm in diameter. Reviewed, dictated and finalized at location A. IMPRESSION: 1. Cholelithiasis and likely choledocholithiasis with suggestion of a 3 mm ston e at the distalmost common bile duct and mild secondary intrahepatic biliary du ctal dilation and dilation of the common hepatic and bile ducts, each measuring up to 8 mm in diameter.
--- NOTE | ~2024-08-07 | CT_ITS ---
CLINICAL INDICATION: Vomiting and transaminitis COMPARISON: None. TECHNIQUE: Multiple contiguous axial images of the abdomen and pelvis were performed following the ad ministration of with 100 mL Omnipaque-350 intravenous contrast The dose-length product (DLP) was 592.04 mGy-cm. Automated exposure control and iterative reconstruction technique were employed. FINDINGS/OBSERVATIONS: Visualized lower thorax: The bilateral lung bases are clear. The heart is of normal size, without pericardial effusion. Liver: The liver demonstrates homogeneous enhancement and is not enlarged. Gallbladder and biliary system: The gallbladder is only minimally distended, containing multiple stones, and is otherwise unremarkabl e. Pancreas: The pancreas enhances homogeneously without ductal dilatation. Spleen: The spleen enhances homogeneously and is enlarged measuring 14 cm in longitudinal dimension. Kidneys:The bilateral kidneys enhance symmetrically without renal calculi. Mild bilateral hydroureteronephrosis, left greater than right. A bulky calcification is identified wi thin the left hemipelvis, although this is anterior and caudal to the expected path of the left urete r, for which a phlebolith is suspected. Adrenal glands: Unremarkable. Gastrointestinal tract: Unremarkable. Appendix: The appendix is of normal caliber (axial series, images 116 through 129) Vasculature: Unremarkable. Lymph nodes: No pathologically enlarged or morphologically suspicious lymph nodes within the retroperitoneum or at the root of the mesentery. Pelvic structures: The bladder is minimally distended, and otherwise unremarkable. The uterus is anteverted and anteflexed. Body wall and musculoskeletal: Small fat-containing umbilical hernia. No significant degenerative disease within the lower thoracic or lumbosacral spine. IMPRESSION: Splenic enlargement. Cholelithiasis. Mild bilateral hydroureteronephrosis without a discrete obstruction identified. Reviewed, dictated and finalized at location A.
--- OUTSIDE RECORDS SUMMARY | 2024-08-07 06:17 | XMS_ITS | Encounter Summary ---
Author Organization [facility] [place] Address [address] [place] [address] Care Team Providers Care Agriculturist Name Role Phone Unavailable Primary Care Provider Unavailabl e Prior Encounters Date Type Department Care Team Description 03/30/2019 Converted 13x Documents [facility] [address] [place] [id number] <No scans attached> Plan of Treatment Not on file Visit Diagnoses Not on file
--- OUTSIDE RECORDS SUMMARY | 2024-08-07 06:17 | XMS_ITS | Clinical Summary ---
Author Organization [facility] Address [address] [place] [address] Care Team Providers Care Supervisor Vegetable Farming Name Role Phone Unavailable Primary Care Provider Unavailabl e Social History Tobacco Use Types Packs/Day Years Used Date Smoking Tobacco: Never Assessed Comments Unknown Sex and Gender Information Value Date Recorded Sex Assigned at Not on file Legal Sex Unknown 03/29/2021 8:38 PM PST Gender Identity Not on file Sexual Orientation Not on file Plan of Treatment Not on file
[2024-08-07 06:22] VITALS: BP 142/87; PULSE 96; RESP 15; TEMP 36.2; O2SAT 100
[2024-08-07 06:42] LABS: Basophils Percent Auto 0.3 % (0.2-1.2); Eosinophils Absolute Auto 0.1 K/mm3 (0-0.3); Eosinophils Percent Auto 0.9 % (0-4.4); Hematocrit 37.8 % (37.0-47.0); Hemoglobin 12.5 g/dL (12.0-15.0); Immature Granulocyte Absolute 0.02 K/mm3 (0.00-0.031); Immature Granulocyte Percent A 0.3 % (0-0.5); Lymphocytes Absolute Auto 1.07 K/mm3 (0.9-3.2); Lymphocytes Percent Auto 16.3 % (18.3-44.2); Mean Corpuscular HGB Conc 33.1 g/dl (32-36); Mean Corpuscular Hemoglobin 28.2 pg (26-34); Mean Corpuscular Volume 85.3 fl (80-100); Mean Platelet Volume 8.9 fl (7.4-10.4); Monocytes Absolute Auto 0.4 K/mm3 (0.1-0.6); Monocytes Percent Auto 6.4 % (2.6-8.5); Neutrophils Percent Auto 75.8 % (45.5-73.1); Platelet Count Result 255 k/mm3 (150-375); Red Blood Count 4.43 M/mm3 (4.2-5.4); Red Cell Distribution Width 12.8 % (11.5-14.5); White Blood Count 6.6 K/mm3 (4.5-10.0)
[2024-08-07 06:52] LABS: Alanine Aminotransferase 633 U/L (6-35); Albumin Level 4.6 g/dL (3.5-5.1); Alkaline Phosphatase 208 U/L (38-126); Anion Gap 11 mmol/L (4-12); Aspartate Amino Transferase 544 U/L (14-36); Bilirubin,Total 4.9 mg/dL (0.2-1.3); Blood Urea Nitrogen 6 mg/dL (7-17); Calcium 9.3 mg/dL (8.4-10.2); Carbon Dioxide 25 mmol/L (22-30); Chloride 103 mmol/L (98-107); Estimated CRCL calculation 114 ml/min; Estimated Glomerular Filt Rate > 60; Glucose 119 mg/dL (65-110); Lipase 108 U/L (23-300); Potassium 4.1 mmol/L (3.4-5.0); Sodium 139 mmol/L (137-145)
[2024-08-07 07:23] LABS: BEDSIDEPREGUCG Negative (Negative)
[2024-08-07 07:23] LABS: Add Urine Microscopic? YES; Appearance Urine Cloudy (Clear); Bacteria Urine Rare /hpf; Bilirubin Urine 2+ (Negative); Blood Urine Negative (Negative); Color Urine Dark Yellow (Yellow); Glucose Urine UA Negative (Negative); Ketones Urine Negative (Negative); Leukocyte Esterase Ur Trace LEU/UL (Negative); Nitrate Urine Negative (Negative); Non Pathogenic Casts 0-2; Protein Urine Negative (Negative); RBC Urine 0-2 /hpf (0-2); Specific Grav Ur 1.008 (1.001-1.035); Squamous Epithelial Cell Urine Few /hpf (Few); Urobilinogen Urine 0.2 mg/dL (<2.0); WBC Urine 0-5 /hpf (0-3)
--- NOTE | 2024-08-07 07:45 | PC.NURSE ---
Refuses CT scan.
[2024-08-07 08:21] LABS: Monoscreen Negative (Negative); Negative Monotest Control Negative (Negative); Positive Monotest Control Positive (Positive)
--- OUTSIDE RECORDS SUMMARY | 2024-08-07 08:32 | XMS_ITS | Encounter Summary ---
Author Organization [facility] Address [address] [place] [address] Care Team Providers Care Diamond Grader Name Role Phone Unavailable Primary Care Provider Unavailabl e Prior Encounters Date Type Department Care Team Description 03/30/2019 Converted 13x Documents [facility] [address] [place] [id number] <No scans attached> Plan of Treatment Not on file Visit Diagnoses Not on file
--- OUTSIDE RECORDS SUMMARY | 2024-08-07 08:32 | XMS_ITS | Clinical Summary ---
Author Organization [facility] [place] [place] Address [address] [place] [address] Care Team Providers Care Screwmaker Automatic Name Role Phone Unavailable Primary Care Provider [...]
[2024-08-07 08:52] LABS: Hepatitis B Surface Antigen Negative (Negative)
[2024-08-07 08:56] VITALS: BP 105/70; PULSE 98; RESP 16; O2SAT 100
[2024-08-07 08:58] LABS: HAV RESULT Negative (Negative); Hepatitis B Core IgM Result Negative (Negative)
--- NOTE | 2024-08-07 09:05 | PC.NURSE ---
Pt refused ultrasound.
[2024-08-07 09:10] LABS: Hepatitis C Virus Antibody Negative (Negative)
--- NOTE | 2024-08-07 10:40 | ED_ITS ---
HPI - General Adult General Chief complaint: Nausea/Vomiting/Diarrhea Stated complaint: im dehydrated Time Seen by Provider: 08/07/24 07:04 History of Present Illness HPI narrative: Patient is a 29-year-old female who presents ER with concerns for dehydration. Reports her child has had a GI illness with vomiting and she began vomiting last night. Her urine became dark. No diarrhea. Denies fevers chills or sweats. She has not abdominal pain. Related Data Home Medications ?Medication ?Instructions ?Recorded ?Confirmed ?Last Taken ?Type acetaminophen 325 mg tablet 650 mg PO Q4H PRN fever or pain 08/07/24 08/07/24 Unknown History (Tylenol) Allergies Allergy/AdvReac Type Severity Reaction Status Date / Time amoxicillin AdvReac Mild Hives Verified 08/07/24 16:40 latex AdvReac Mild Hives Verified 08/07/24 16:40 Review of Systems 2 Review of Systems: All systems reviewed & are unremarkable except as noted in HPI and below Constitutional: Constitutional: Reports no additional constitutional complaints ENT: Reports system reviewed and no additional complaints, except as documented Cardiovascular: Cardiovascular: Reports no additional cardiovascular complaints Respiratory: Respiratory: Reports no additional respiratory complaints Gastrointestinal: Gastrointestinal: Reports no additional gastrointestinal complaints REPLACED BY [facility] Past Medical History Medical History (Updated 08/07/24 @ 18:41 by Thomas Boateng MD) Migraines Hearing difficulty Asthma as child Anxiety Family History Family History Father Hypertension Mother Diabetes mellitus Depression Sibling Depression Grandparent Depression Heart disease Cerebrovascular accident Grandparent Lung cancer Heart disease Social History Social History (Updated 08/07/24 @ 15:06 by Diane Cobb PA-C) Social History: Surrogate medical decision maker: Primo Webber, spouse. Code status: Full code. Smoking status: Never smoker Tobacco type: e-cigarettes/vaping Second hand tobacco smoke exposure: No Smoking end date: 09/25/21 Alcohol intake: never Substance use: never Substance use type: does not use Do You Feel Safe in your Home?: Yes Lack of Transportation: YES Lack of Food: Never True Current Housing: I Have Housing Concerned About Future Housing: No Difficulty Paying Gas/Electric Bills: No Difficulty Paying for Meds: No Currently Unemployed: No Education: High School Diploma/GED Difficulty w/ Childcare or Family Care: No Living arrangements: with family Additional living arrangements comments: 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 HEAD: Normocephalic, atraumatic. ENT: Mucous membranes moist. CHEST: Clear to auscultation. No respiratory distress. HEART: Regular rate and rhythm. Normal peripheral pulses. ABDOMEN: Soft, nontender, nondistended. EXTREMITIES: Normal range of motion. No edema. SKIN: Warm, dry, no rash. NEURO: Alert and oriented x3. PSYCH: Normal mood and affect. Course Course Emergency Course: Patient with some significant anxiety in the ER. After imaging is CT scan showed possible cholelithiasis a ultrasound was ordered to look for signs of cholecystitis given markedly abnormal liver enzymes. General surgery was then consulted. They will see her in consult and would recommend GI consultation with MRCP and hospitalist admission. GI was consulted as was the hospitalist service. Patient started on antibiotics. She will be kept NPO. She has been made aware of all lab and imaging findings. Vital Signs Vital signs: Vital Signs Temperature 97.1 F L 08/07/24 06:22 Pulse Rate 96 08/07/24 06:22 Respiratory Rate 15 08/07/24 06:22 Blood Pressure 142/87 H 08/07/24 06:22 Pulse Oximetry 100 08/07/24 06:22 Oxygen Delivery Room Air 08/07/24 06:22 Temperature 97.8 F 08/07/24 14:13 Pulse Rate 95 08/07/24 14:13 Respiratory Rate 18 08/07/24 14:13 Blood Pressure 127/77 08/07/24 14:13 Pulse Oximetry 100 08/07/24 14:13 Oxygen Delivery Room Air 08/07/24 06:22 Medical Decision Making Vital Signs Vital Signs: Vital Signs Temperature 97.1 F L 08/07/24 06:22 Pulse Rate 96 08/07/24 06:22 Respiratory Rate 15 08/07/24 06:22 Blood Pressure 142/87 H 08/07/24 06:22 Pulse Oximetry 100 08/07/24 06:22 Oxygen Delivery Room Air 08/07/24 06:22 Temperature 97.8 F 08/07/24 14:13 Pulse Rate 95 08/07/24 14:13 Respiratory Rate 18 08/07/24 14:13 Blood Pressure 127/77 08/07/24 14:13 Pulse Oximetry 100 08/07/24 14:13 Oxygen Delivery Room Air 08/07/24 06:22 Lab Data 08/07/24 06:36 08/07/24 06:36 Labs: Lab Results 08/07/24 08/07/24 08/07/24 Range/Units 06:36 07:11 07:22 WBC 6.6 (4.5-10.0) K/mm3 RBC 4.43 (4.2-5.4) M/mm3 Hgb 12.5 (12.0-15.0) g/dL Hct 37.8 (37.0-47.0) % MCV 85.3 (80-100) fl MCH 28.2 (26-34) pg MCHC 33.1 (32-36) g/dl RDW 12.8 (11.5-14.5) % Plt Count 255 (150-375) k/mm3 MPV 8.9 (7.4-10.4) fl Immature Gran % (Auto) 0.3 (0-0.5) % Neut % (Auto) 75.8 H (45.5-73.1) % Lymph % (Auto) 16.3 L (18.3-44.2) % Sharkey % (Auto) 6.4 (2.6-8.5) % Eos % (Auto) 0.9 (0-4.4) % Baso % (Auto) 0.3 (0.2-1.2) % Lymph # (Auto) 1.07 (0.9-3.2) K/mm3 Sharkey # (Auto) 0.4 (0.1-0.6) K/mm3 Eos # (Auto) 0.1 (0-0.3) K/mm3 Baso # (Auto) 0.0 (0.0-0.1) K/mm3 Abs Immat Gran (auto) 0.02 (0.00-0.031) K/mm3 Absolute Neuts (auto) 5.0 (1.3-6.7) K/mm3 Absolute Nucleated RBC 0.000 (0.0-0.012) K/mm3 Nucleated RBC % 0.0 (0.0-0.2) % Sodium 139 (137-145) mmol/L Potassium 4.1 (3.4-5.0) mmol/L Chloride 103 (98-107) mmol/L Carbon Dioxide 25 (22-30) mmol/L Anion Gap 11 (4-12) mmol/L BUN 6 L (7-17) mg/dL Creatinine 0.59 L (0.7-1.0) mg/dL Estim Creat Clear Calc 114 ml/min Estimated GFR > 60 (59 - ) Glucose 119 H (65-110) mg/dL Calcium 9.3 (8.4-10.2) mg/dL Total Bilirubin 4.9 H (0.2-1.3) mg/dL AST 544 H (14-36) U/L ALT 633 H (6-35) U/L Alkaline Phosphatase 208 H (38-126) U/L Total Protein 8.0 (6.3-8.2) g/dL Albumin 4.6 (3.5-5.1) g/dL Lipase 108 (23-300) U/L Urine Color Dark yellow (Yellow) Urine Appearance Cloudy H (Clear) Urine pH 6.0 (5.0-9.0) Ur Specific [place] 1.008 (1.001-1.035) Urine Protein Negative (Negative) mg/dL Urine Glucose (UA) Negative (Negative) mg/dL Urine Ketones Negative (Negative) mg/dL Ur Blood (Man) Negative (Negative) Urine Nitrate Negative (Negative) Urine Bilirubin 2+ H (Negative) Urine Urobilinogen 0.2 (<2.0) mg/dL Leukocyte Esterase Rfl Trace H (Negative) DAYANA/UL Urine RBC 0-2 (0-2) /hpf Urine WBC 0-5 (0-3) /hpf Ur Squamous Epith Cells Few (Few) /hpf Urine Bacteria Rare /hpf Urine Casts 0-2 POC Urine HCG, Qual Negative (Negative) Acetaminophen < 10 L (10-30) ug/mL Hepatitis A IgM Ab (Negative) Hep Bs Antigen (Negative) Hep B Core IgM Ab (Negative) Hepatitis C Ab Screen (Negative) Monoscreen (Negative) 08/07/24 Range/Units 08:06 WBC (4.5-10.0) K/mm3 RBC (4.2-5.4) M/mm3 Hgb (12.0-15.0) g/dL Hct (37.0-47.0) % MCV (80-100) fl MCH (26-34) pg MCHC (32-36) g/dl RDW (11.5-14.5) % Plt Count (150-375) k/mm3 MPV (7.4-10.4) fl Immature Gran % (Auto) (0-0.5) % Neut % (Auto) (45.5-73.1) % Lymph % (Auto) (18.3-44.2) % Sharkey % (Auto) (2.6-8.5) % Eos % (Auto) (0-4.4) % Baso % (Auto) (0.2-1.2) % Lymph # (Auto) (0.9-3.2) K/mm3 Sharkey # (Auto) (0.1-0.6) K/mm3 Eos # (Auto) (0-0.3) K/mm3 Baso # (Auto) (0.0-0.1) K/mm3 Abs Immat Gran (auto) (0.00-0.031) K/mm3 Absolute Neuts (auto) (1.3-6.7) K/mm3 Absolute Nucleated RBC (0.0-0.012) K/mm3 Nucleated RBC % (0.0-0.2) % Sodium (137-145) mmol/L Potassium (3.4-5.0) mmol/L Chloride (98-107) mmol/L Carbon Dioxide (22-30) mmol/L Anion Gap (4-12) mmol/L BUN (7-17) mg/dL Creatinine (0.7-1.0) mg/dL Estim Creat Clear Calc ml/min Estimated GFR (59 - ) Glucose (65-110) mg/dL Calcium (8.4-10.2) mg/dL Total Bilirubin (0.2-1.3) mg/dL AST (14-36) U/L ALT (6-35) U/L Alkaline Phosphatase (38-126) U/L Total Protein (6.3-8.2) g/dL Albumin (3.5-5.1) g/dL Lipase (23-300) U/L Urine Color (Yellow) Urine Appearance (Clear) Urine pH (5.0-9.0) Ur Specific [place] (1.001-1.035) Urine Protein (Negative) mg/dL Urine Glucose (UA) (Negative) mg/dL Urine Ketones (Negative) mg/dL Ur Blood (Man) (Negative) Urine Nitrate (Negative) Urine Bilirubin (Negative) Urine Urobilinogen (<2.0) mg/dL Leukocyte Esterase Rfl (Negative) DAYANA/UL Urine RBC (0-2) /hpf Urine WBC (0-3) /hpf Ur Squamous Epith Cells (Few) /hpf Urine Bacteria /hpf Urine Casts POC Urine HCG, Qual (Negative) Acetaminophen (10-30) ug/mL Hepatitis A IgM Ab Negative (Negative) Hep Bs Antigen Negative (Negative) Hep B Core IgM Ab Negative (Negative) Hepatitis C Ab Screen Negative (Negative) Monoscreen Negative (Negative) Discharge Plan Discharge Clinical Impression: Transaminitis, Gallbladder polyp Patient Disposition: Still a Patient Condition: Stable
[2024-08-07] MEDS: metroNIDAZOLE 500 MG/ISO 100ML 500 MG/100 ML BAG 100 MG IVPB ×2 (11:37→22:31)
[2024-08-07 12:46] VITALS: BP 110/59; PULSE 87; RESP 16; TEMP 36.9; O2SAT 99
--- NOTE | 2024-08-07 12:59 | PC.NURSE ---
called lab to add on baseline troponin and BNP
--- NOTE | 2024-08-07 13:59 | ADMGEN ---
This patient, Delma Webber, was admitted to Medical Room 242-01. Patient/family oriented to hospital policies and general routines including ID bracelet, bed and alarms, visiting hours, pain management, procedures, bathroom and other care routines, personal items, smoking policy, room service/diet, and visiting hours. Information on how to activate the Rapid Response Team has been discussed. Patient/Family are encouraged to report perceived risks to care and to ask questions if they do not understand what they are told or what they should do.
[2024-08-07 14:13] VITALS: BP 127/77; PULSE 95; RESP 18; TEMP 36.6; O2SAT 100
[2024-08-07] MEDS: SODIUM CHLORIDE 0.9% IV 1,000 ML 125 ML IV CONT ×2 (14:45→23:49)
--- NOTE | 2024-08-07 15:00 | PM.IMHP ---
H&P: HPI History of Present Illness Date/Time: 08/07/24 15:00 Chief Complaint: Vomiting, feels dehydrated. Narrative: This is a very pleasant 29-year-old female who presented to the emergency department via private vehicle with complaints of vomiting and feelings of dehydration. Her eldest child recently had a GI illness and she developed nausea and vomiting last evening. She is feeling dehydrated and has noticed that her urine is dark though that has been for several days. With further questioning she reports having pain in her upper back for couple of days earlier this week. She has difficulties describing the pain but tells me that she initially thought it was due to low result of her bad posture after spending long hours studying on the computer. The pain did radiate somewhat in a bandlike fashion to the upper abdomen and it sounds as though she had some nausea with that as well. She has been taking is ibuprofen and acetaminophen for that pain but admits that she has been alternating those medications daily for several months due to dental caries. She denies fever, chest pain, pleuritic pain, shortness of breath, current abdominal pain, hematemesis, melena, hematochezia, diarrhea, dysuria, and hematuria. She has not noticed jaundice and denies pruritus. In the ED: She was afebrile on arrival with a blood pressure of 142/87. Labs were significant for a total bilirubin 4.9, AST 544, ALT 633, alkaline phosphatase 208, lipase 108. Hepatitis and mono screens were negative. CT of the abdomen pelvis showed splenic enlargement, cholelithiasis, and mild bilateral hydroureteronephrosis without a discrete obstruction identified. Right upper quadrant ultrasound showed a suspicious nondependent 1.2 cm gallbladder mass consistent with polyp. She was given a dose of ceftriaxone and metronidazole to cover possible cholecystitis and she is being admitted in this setting for surgery consultation. Review of Systems Review of Systems: 12 systems were reviewed and are negative except for as per HPI. [facility] Past Medical History Medical History Migraines Hearing difficulty Asthma as child Anxiety Family History Family History Father Hypertension Mother Diabetes mellitus Depression Sibling Depression Grandparent Depression Heart disease Cerebrovascular accident Grandparent Lung cancer Heart disease Social History Social History (Updated 08/07/24 @ 22:57 by Diane Cobb PA-C) Social History: Surrogate medical decision maker: Primo Webber, spouse. Code status: Full code. Smoking status: Never smoker Tobacco type: e-cigarettes/vaping Second hand tobacco smoke exposure: No Smoking end date: 09/25/21 Alcohol intake: never Substance use: never Substance use type: does not use Do You Feel Safe in your Home?: Yes Lack of Transportation: YES Lack of Food: Never True Current Housing: I Have Housing Concerned About Future Housing: No Difficulty Paying Gas/Electric Bills: No Difficulty Paying for Meds: No Currently Unemployed: No Education: High School Diploma/GED Difficulty w/ Childcare or Family Care: No Living arrangements: with family Additional living arrangements comments: Lives with spouse and their 3 children. 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 Spiritual care concerns: No Meds Home Medications and Allergies Home Medications ?Medication ?Instructions ?Recorded ?Confirmed ?Type ibuprofen 600 mg tablet 600 mg PO TID #20 tabs 01/24/24 08/07/24 Rx acetaminophen 325 mg tablet 650 mg PO Q4H PRN fever or pain 08/07/24 08/07/24 History (Tylenol) Allergies Allergy/AdvReac Type Severity Reaction Status Date / Time amoxicillin AdvReac Mild Hives Verified 08/07/24 16:40 latex AdvReac Mild Hives Verified 08/07/24 16:40 Vital Signs Vital Signs - 24 hr 08/07/24 06:22 08/07/24 08:56 08/07/24 12:46 Temperature 97.1 F L 98.4 F Pulse Rate 96 98 87 Respiratory Rate 15 16 16 Blood Pressure 142/87 H 105/70 110/59 L Pulse Oximetry 100 100 99 Oxygen Delivery Room Air 08/07/24 14:13 Temperature 97.8 F Pulse Rate 95 Respiratory Rate 18 Blood Pressure 127/77 Pulse Oximetry 100 Oxygen Delivery Exam Narrative: General: Nontoxic-appearing female sitting up in bed in no distress. Weight: 78 kg. BMI: 33.6. HEENT: PERRL, EOMI. Mild scleral icterus. Oral mucosa moist. Neck: Supple. Respiratory: Lungs are clear to auscultation bilaterally. Cardiovascular: Regular rate and rhythm with S1-S2. Gastrointestinal: Abdomen is soft, nontender, and nondistended with positive bowel sounds. Negative Madrid sign. Skin: Warm and dry. Slightly jaundiced. Extremities: No cyanosis, clubbing, or edema. Radial and pedal pulses intact. Neurological: Alert. Cranial nerves 2-12 are grossly intact. No gross focal deficits to casual conversation. Psychiatric: Pleasant and cooperative with normal mood and affect. Judgment and insight intact. H&P: Results Labs Labs: Short CBC 08/07/24 Range/Units 06:36 WBC 6.6 (4.5-10.0) K/mm3 Hgb 12.5 (12.0-15.0) g/dL Hct 37.8 (37.0-47.0) % Plt Count 255 (150-375) k/mm3 BMP 08/07/24 06:36 Sodium 139 Potassium 4.1 Chloride 103 Carbon Dioxide 25 BUN 6 L Creatinine 0.59 L Glucose 119 H Calcium 9.3 Liver Function 08/07/24 Range/Units 06:36 Total Bilirubin 4.9 H (0.2-1.3) mg/dL AST 544 H (14-36) U/L ALT 633 H (6-35) U/L Alkaline Phosphatase 208 H (38-126) U/L Albumin 4.6 (3.5-5.1) g/dL Urine 08/07/24 Range/Units 07:11 Urine Color Dark yellow (Yellow) Urine Appearance Cloudy H (Clear) Urine pH 6.0 (5.0-9.0) Ur Specific [place] 1.008 (1.001-1.035) Urine Protein Negative (Negative) mg/dL Urine Glucose (UA) Negative (Negative) mg/dL Imaging Abdomen/Pelvis CT 08/07/24 08:30 IMPRESSION: 1. Splenic enlargement. 2. Cholelithiasis. 3. Mild bilateral hydroureteronephrosis without a discrete obstruction identified. Upper Quadrant Ultrasound 08/07/24 10:24 IMPRESSION: 1: Suspicious nondependent 1.2 cm gallbladder mass with internal vascularity, consistent with a polyp, at increased risk for malignancy. Recommend surgical consultation. Assessment and Plan Assessment and plan (1) Gallbladder polyp: Code(s): K82.4 - Cholesterolosis of gallbladder Status: Acute (2) Transaminitis: Code(s): R74.01 - Elevation of levels of liver transaminase levels Status: Acute (3) Cholelithiasis: Code(s): K80.20 - Calculus of gallbladder without cholecystitis without obstruction Status: Acute Plan The patient presented to the emergency department with complaints of vomiting and feelings of dehydration since yesterday as detailed in HPI. Labs, imaging, EKG, and all reports were personally reviewed. Her LFTs are elevated in a mixed hepatocellular and cholestatic pattern and imaging of the abdomen showed cholelithiasis as well as a 1.2 x 0.6 x 1.2 cm non dependent mass in the gallbladder consistent with a gallbladder polyp. Common bile duct size was normal though we will obtain an MRCP for further evaluation as it is possible that she passed a gallstone earlier this week when she was having the pain in her mid back radiating in a band-like fashion to upper abdomen. There is no evidence of acute cholecystitis on imaging. Surgery has been consulted as she will likely need a cholecystectomy as an outpatient so long as the MRCP shows a polyp of that size. GI was also consulted and their input is appreciated. Check acetaminophen level. She will be hydrated overnight. Analgesics and antiemetics are available as needed. Her home medications will be reviewed and resumed as appropriate. Findings and treatment plan were discussed with the patient. Questions were solicited and answered to satisfaction. The patient's medical management will be taken over by the hospitalist team in a.m. Quality VTE Prophylaxis VTE prophylaxis: mechanical ordered If No VTE Prophylaxis Answer both mechanical and pharmacologic: Reason no pharmacologic proph: medical contraindication (may need surgery) The patient has been admitted under observation status. Hospitalist [facility] Advance Care Plan I have confirmed that the patient's Advanced Care Plan is present, code status is documented, or surrogate decision maker is listed in patient medical record.: Yes Medication Reconciliation I have utilized all available resources to obtain, update and review the patients current medications (includes all prescriptions, OTC, herbals, cannabis, and nutritional supplements).: Yes
[2024-08-07 16:33] LABS: Acetaminophen < 10 ug/mL (10-30)
[2024-08-07 20:00] VITALS: PULSE 93; RESP 16; O2SAT 100
[2024-08-07] MEDS: IBUPROFEN 400 MG TABLET PO (20:09)
[2024-08-07 21:08] VITALS: BP 145/79; PULSE 93; RESP 16; TEMP 36.6; O2SAT 100
[2024-08-07 22:10] VITALS: BMI 33.5
[2024-08-08 05:14] LABS: Hematocrit 34.6 % (37.0-47.0); Hemoglobin 11.1 g/dL (12.0-15.0); Mean Corpuscular HGB Conc 32.1 g/dl (32-36); Mean Corpuscular Hemoglobin 27.8 pg (26-34); Mean Corpuscular Volume 86.7 fl (80-100); Mean Platelet Volume 9.3 fl (7.4-10.4); Platelet Count Result 236 k/mm3 (150-375); Red Blood Count 3.99 M/mm3 (4.2-5.4); Red Cell Distribution Width 12.9 % (11.5-14.5); White Blood Count 6.3 K/mm3 (4.5-10.0)
[2024-08-08 05:27] LABS: Alanine Aminotransferase 466 U/L (6-35); Albumin Level 3.9 g/dL (3.5-5.1); Alkaline Phosphatase 176 U/L (38-126); Anion Gap 7 mmol/L (4-12); Aspartate Amino Transferase 217 U/L (14-36); Bilirubin,Total 3.4 mg/dL (0.2-1.3); Blood Urea Nitrogen 7 mg/dL (7-17); Calcium 9.1 mg/dL (8.4-10.2); Carbon Dioxide 23 mmol/L (22-30); Chloride 107 mmol/L (98-107); Creatine Kinase 46 U/L (30-135); Estimated CRCL calculation 117 ml/min; Estimated Glomerular Filt Rate > 60; Glucose 80 mg/dL (65-110); Lipase 52 U/L (23-300); Potassium 3.7 mmol/L (3.4-5.0); Sodium 137 mmol/L (137-145)
[2024-08-08] MEDS: metroNIDAZOLE 500 MG/ISO 100ML 500 MG/100 ML BAG 100 MG IVPB ×3 (05:48→21:42)
[2024-08-08 06:00] VITALS: BP 133/60; PULSE 90; RESP 16; TEMP 36.4; O2SAT 99
--- NOTE | 2024-08-08 07:35 | P.PNIM_ITS ---
Progress Note: A&P Assessment and Plan (1) Gallbladder polyp: Code(s): K82.4 - Cholesterolosis of gallbladder Status: Acute Assessment and Plan: MRCP 08/08 to better visualize (2) Transaminitis: Code(s): R74.01 - Elevation of levels of liver transaminase levels Status: Acute Assessment and Plan: Her LFTs are elevated in a mixed hepatocellular and cholestatic pattern 08/08 labs yielding Total bili: 3.4 AST: 217 ALT: 466 Alk phos: 176 -->A significant decrease from 08/07 upon arrival to ED -Per gen surg note 08/08: Patient has marked elevation of her liver enzymes and a total bilirubin of 3.4. She may have passed a gallstone or have a retained gallstone causing the elevation. Will need to follow her liver enzymes and hopefully be will decrease. If they continue to remain elevated or are rising then intervention with ERCP would be recommended. GI consult is pending. Viral hepatitis and mononucleosis seems to have been ruled out as etiologies with negative results. (3) Cholelithiasis: Code(s): K80.20 - Calculus of gallbladder without cholecystitis without obstruction Status: Acute Assessment and Plan: A/P CT & RUQ US: showed cholelithiasis as well as a 1.2 x 0.6 x 1.2 cm non dependent mass in the gallbladder consistent with a gallbladder polyp. Common bile duct size was normal. There is no evidence of acute cholecystitis on imaging. -MRCP ordered for further evaluation as it is possible that she passed a gallstone earlier this week when she was having the pain in her mid back ra diating in a band-like fashion to upper abdomen, pending. Pt continues to be NPO. -Surgery has been consulted as she will likely need a cholecystectomy as an outpatient so long as the MRCP shows a polyp of that size -->-Per gen surg note 08/08: 1.2cm non dependent mass in the gallbladder suggestive of a gallbladder polyp on imaging. There is internal vascularity and flow on the ultrasound. Will need to get an MRCP to further visualize the gallbladder itself and the mass to see if it involves just the mucosa or extends deeper into the muscularis of the gallbladder wall. Just by size criteria alone and does qualify for a cholecystectomy to remove the mass if it is a polyp without obvious evidence of malignant transformation of extension into the deeper layers of the gallbladder wall. MRCP has been ordered and will await the results. Will have further recommendations after the MRCP has been done. Surgery will continue to follow. -GI was also consulted and their input is appreciated, pending. -Acetaminophen level WDL. -Pt remains on IVF for hydration, analgesics and antiemetics are available as needed. Plan Pending: -MRCP -GI consult -Gen surg consult Subjective Date/time seen: 08/08/24 0912 Interval history: Pt is a 29-year-old female who presented to the emergency department via private vehicle on 08/07 with complaints of vomiting and feelings of dehydration. Her eldest child recently had a GI illness and she developed nausea and vomiting last evening. She is feeling dehydrated and has noticed that her urine is dark though that has been for several days. With further questioning she reports having pain in her upper back for couple of days earlier this week. She has difficulties describing the pain but tells me that she initially thought it was due to low result of her bad posture after spending long hours studying on the computer. The pain did radiate somewhat in a bandlike fashion to the upper abdomen and it sounds as though she had some nausea with that as well. She has been taking is ibuprofen and acetaminophen for that pain but admits that she has been alternating those medications daily for several months due to dental caries. She denies fever, chest pain, pleuritic pain, shortness of breath, current abdominal pain, hematemesis, melena, hematochezia, diarrhea, dysuria, and hematuria. She has not noticed jaundice and denies pruritus. In the ED: She was afebrile on arrival with a blood pressure of 142/87. Labs were significant for a total bilirubin 4.9, AST 544, ALT 633, alkaline phosphatase 208, lipase 108. Hepatitis and mono screens were negative. CT of the abdomen pelvis showed splenic enlargement, cholelithiasis, and mild bilateral hydroureteronephrosis without a discrete obstruction identified. Right upper quadrant ultrasound showed a suspicious nondependent 1.2 cm gallbladder mass consistent with polyp. She was given a dose of ceftriaxone and metronidazole to cover possible cholecystitis and she is being admitted in this setting for surgery consultation. Upon rounds today, pt states that she is not in any pain, even with abd and CVA/back palpation. She states that her N/V has also ceased. Pt's liver enzymes down considerably from this AM lab draw. Pending MRCP imaging as well as GI consult and continued surgery consult. Pt updated with the plan, she is agreeable. Review of Systems Review of Systems: 12 systems were reviewed and are negativ e except for as per HPI. Exam Const: General: comfortable and no acute distress HENMT: Face/Nose/Sinus: Normal nares present Mouth: Yes moist mucous membranes Eyes: General: appearance normal, both eyes and all related structures Sclera: sclerae normal Neck: Neck: supple and no JVD Carotids: no bruits Resp: Effort & Inspection: normal respiratory effort Auscultation: clear to auscultation bilaterally Cardio: Rate: regular rate Rhythm: regular rhythm GI: Inspection: non-distended Auscultation: normal bowel sounds Other: Negative [place] sign Skin: General skin exam: normal color and no rashes or lesions noted Wounds: no wounds Neuro: Speech: normal speech Motor exam (neuro): Normal motor muscle tone present throughout Sensory Exam: normal sensation Extrem: General: normal to inspection, no edema and no pedal edema Psych: Mental Status: mental status grossly normal Affect: normal affect Objective Data Vital Signs Vital Signs: Vital Signs - 24 hr 08/07/24 08:56 08/07/24 12:46 08/07/24 14:13 Temperature 98.4 F 97.8 F Pulse Rate 98 87 95 Respiratory Rate 16 16 18 Blood Pressure 105/70 110/59 L 127/77 Pulse Oximetry 100 99 100 Oxygen Delivery 08/07/24 20:00 08/07/24 21:08 08/08/24 06:00 Temperature 97.9 F 97.6 F Pulse Rate 93 93 90 Respiratory Rate 16 16 16 Blood Pressure 145/79 H 133/60 Pulse Oximetry 100 100 99 Oxygen Delivery Room Air Intake/Output Intake/Output: Intake & Output 08/05/24 08/06/24 08/07/24 08/08/24 23:59 23:59 23:59 23:59 Intake Total 1250 100 Balance 1250 100 Meds/Results Medications: Active Medications Generic Name Dose Route Start Last Admin Trade Name Freq PRN Reason Stop Dose Admin Ceftriaxone Sodium 1 gm in 50 mls @ 100 mls/hr 08/08/24 12:00 Rocephin 1 Gm/Ns 50 Ml IVPB Q24H DOROTHY Metronidazole 500 mg in 100 mls @ 100 mls/hr 08/07/24 11:20 08/08/24 05:48 Flagyl 500 Mg/Iso Soln 100 Ml IVPB 100 mls/hr Q8HR DOROTHY Administration Sodium Chloride 1,000 mls @ 125 mls/hr 08/07/24 12:40 08/07/24 23:49 Normal Saline Iv IV CONT 125 mls/hr .Q8H DOROTHY Administration Morphine Sulfate 2 mg 08/07/24 12:40 Morphine Sulfate (*Crx) 2 Mg/Ml Inj IV PUSH Q2H PRN Pain Rated 7-10 Ondansetron HCl 4 mg 08/07/24 12:40 Ondansetron Inj 4 Mg/2 Ml Vial IV PUSH Q4H PRN Nausea Radiology Results: ITS Impressions Abdomen/Pelvis CT 08/07/24 08:30 IMPRESSION: Splenic enlargement. Cholelithiasis. Mild bilateral hydroureteronephrosis without a discrete obstruction identified. Upper Quadrant Ultrasound 08/07/24 10:24 IMPRESSION: 1: Suspicious nondependent 1.2 cm gallbladder mass with internal vascularity, consistent with a polyp, at increased risk for malignancy. Recommend surgical consultation. Labs Labs: Laboratory Results - last 24 hr 08/07/24 08/07/24 08/08/24 06:36 08:06 04:40 WBC 6.3 RBC 3.99 L Hgb 11.1 L Hct 34.6 L MCV 86.7 MCH 27.8 MCHC 32.1 RDW 12.9 Plt Count 236 MPV 9.3 Sodium 137 Potassium 3.7 Chloride 107 Carbon Dioxide 23 Anion Gap 7 BUN 7 Creatinine 0.56 L Estim Creat Clear Calc 117 Estimated GFR > 60 Glucose 80 Calcium 9.1 Magnesium 2.0 Total Bilirubin 3.4 H AST 217 H ALT 466 H Alkaline Phosphatase 176 H Total Creatine Kinase 46 Total Protein 7.0 Albumin 3.9 Lipase 52 Acetaminophen < 10 L Hepatitis A IgM Ab Negative Hep Bs Antigen Negative Hep B Core IgM Ab Negative Hepatitis C Ab Screen Negative Monoscreen Negative Quality VTE Prophylaxis VTE prophylaxis: mechanical ordered
--- NOTE | 2024-08-08 08:29 | WPDCN ---
Assessment and Plan Assessment and plan (1) Transaminitis: Code(s): R74.01 - Elevation of levels of liver transaminase levels Status: Acute Assessment and Plan: Patient has marked elevation of her liver enzymes and a total bilirubin of 3.4. She may have passed a gallstone or have a retained gallstone causing the elevation. Will need to follow her liver enzymes and hopefully be will decrease. If they continue to remain elevated or are rising then intervention with ERCP would be recommended. GI consult is pending. Viral hepatitis and mononucleosis seems to have been ruled out as etiologies with negative results. (2) Gallbladder polyp: Code(s): K82.4 - Cholesterolosis of gallbladder Status: Acute Assessment and Plan: 1.2cm non dependent mass in the gallbladder suggestive of a gallbladder polyp on imaging. There is internal vascularity and flow on the ultrasound. Will need to get an MRCP to further visualize the gallbladder itself and the mass to see if it involves just the mucosa or extends deeper into the muscularis of the gallbladder wall. Just by size criteria alone and does qualify for a cholecystectomy to remove the mass if it is a polyp without obvious evidence of malignant transformation of extension into the deeper layers of the gallbladder wall. MRCP has been ordered and will await the results. Will have further recommendations after the MRCP has been done. Surgery will continue to follow. HPI Data of Consult Date/Time: 08/07/24 Requesting Physician: Royer Lopez MD Primary Care Provider: [employer] PROFESSIONAL PHYSICIAN Consult Narrative Reason for consult: Transaminitis and gallbladder polyp Narrative: Delma Webber is a 29 year old female who presented to the emergency room earlier today with complaints of dehydration. She had some episodes of nausea vomiting and noticed that her urine had become dark over the past several days. She has had a sick child at home and thought she might have had something related to an illness that her sick child gave to her. She did state that earlier in the week she did have some upper back pain which seems to radiate around to her epigastric region of her abdomen. She has never had issues with her gallbladder in the past. She has been taking ibuprofen and Tylenol recently due to some dental caries. She has never had abdominal surgery. She has had 3 vaginal births. 0 workup in the emergency room she seemed to have a normal white blood cell count. Electrolytes were okay but her liver enzymes were markedly elevated with a total bilirubin around 3.4 with marked elevations of her AST, ALT, and alkaline phosphatase. Lipase level normal. CT scan abdomen pelvis showed splenomegaly and a non dependent mass in the gallbladder measuring 1.2cm consistent with a possible gallbladder polyp. Gallbladder wall was not thickened no pericholecystic fluid was seen. Gallbladder ultrasound confirms presence of the gallbladder polyp measuring about 1.2cm which has internal vascularity and flow noted on the ultrasound. No evidence of acute pancreatitis is noted. Viral etiologies for her transaminitis were considered and hepatitis panel and [place] tests are negative. Currently she denies any abdominal pain. She is hungry. Review of Systems Review of Systems: The remainder of the review of systems to include constitutional, HEENT, cardiovascular, respiratory, GI, , integumentary, musculoskeletal, endocrine, immunologic, hematologic, psychiatric, and neurologic are all negative except for which is mentioned above in the HPI. [facility] Past Medical History Medical History Migraines Hearing difficulty Asthma as child Anxiety Family History Family History Father Hypertension Mother Diabetes mellitus Depression Sibling Depression Grandparent Depression Heart disease Cerebrovascular accident Grandparent Lung cancer Heart disease Social History Social History Social History: Surrogate medical decision maker: Primo Webber, spouse. Code status: Full code. Smoking status: Never smoker Tobacco type: e-cigarettes/vaping Second hand tobacco smoke exposure: No Smoking end date: 09/25/21 Alcohol intake: never Substance use: never Substance use type: does not use Do You Feel Safe in your Home?: Yes Lack of Transportation: YES Lack of Food: Never True Current Housing: I Have Housing Concerned About Future Housing: No Difficulty Paying Gas/Electric Bills: No Difficulty Paying for Meds: No Currently Unemployed: No Education: High School Diploma/GED Difficulty w/ Childcare or Family Care: No Living arrangements: with family Additional living arrangements comments: Lives with spouse and their 3 children. 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 Spiritual care concerns: No Meds Home Medications and Allergies Home Medications ?Medication ?Instructions ?Recorded ?Confirmed ?Type ibuprofen 600 mg tablet 600 mg PO TID #20 tabs 01/24/24 08/07/24 Rx acetaminophen 325 mg tablet 650 mg PO Q4H PRN fever or pain 08/07/24 08/07/24 History (Tylenol) Allergies Allergy/AdvReac Type Severity Reaction Status Date / Time amoxicillin AdvReac Mild Hives Verified 08/07/24 16:40 latex AdvReac Mild Hives Verified 08/07/24 16:40 Vital Signs Vital Signs - 24 hr 08/07/24 08:56 08/07/24 12:46 08/07/24 14:13 Temperature 36.9 C 36.6 C Pulse Rate 98 87 95 Respiratory Rate 16 16 18 Blood Pressure 105/70 110/59 L 127/77 Pulse Oximetry 100 99 100 Oxygen Delivery 08/07/24 20:00 08/07/24 21:08 08/08/24 06:00 Temperature 36.6 C 36.4 C Pulse Rate 93 93 90 Respiratory Rate 16 16 16 Blood Pressure 145/79 H 133/60 Pulse Oximetry 100 100 99 Oxygen Delivery Room Air Exam Const: General: comfortable and no acute distress HENMT: Ears: TM's normal bilaterally Face/Nose/Sinus: Normal nares present Mouth: Yes moist mucous membranes Eyes: General: appearance normal, both eyes and all related structures Sclera: sclerae normal ( No obvious scleral icterus) Pupils: Equal, round and reactive pupils present EOM: EOMs intact bilaterally Neck: Neck: supple and no JVD Resp: Effort & Inspection: normal respiratory effort Auscultation: clear to auscultation bilaterally Cardio: Rate: regular rate Rhythm: regular rhythm GI: Other: the abdomen is soft and nondistended. She has no tenderness to palpation in the right upper quadrant or epigastric region in the abdomen. No ventral hernias are noted. No surgical scars are noted. Exam is benign. Skin: General skin exam: normal color ( No jaundice is noted.) and no rashes or lesions noted Neuro: General: gait normal Speech: normal speech Motor exam (neuro): 5/5 motor strength present throughout Sensory Exam: normal sensation Extrem: General: normal to inspection Psych: Mental Status: mental status grossly normal Affect: normal affect Results Labs 08/08/24 04:40 08/08/24 04:40 Labs: Short CBC 08/08/24 Range/Units 04:40 WBC 6.3 (4.5-10.0) K/mm3 Hgb 11.1 L (12.0-15.0) g/dL Hct 34.6 L (37.0-47.0) % Plt Count 236 (150-375) k/mm3 BMP 08/08/24 04:40 Sodium 137 Potassium 3.7 Chloride 107 Carbon Dioxide 23 BUN 7 Creatinine 0.56 L Glucose 80 Calcium 9.1 Cardiac Enzymes 08/08/24 Range/Units 04:40 Total Creatine Kinase 46 (30-135) U/L Liver Function 08/08/24 Range/Units 04:40 Total Bilirubin 3.4 H (0.2-1.3) mg/dL AST 217 H (14-36) U/L ALT 466 H (6-35) U/L Alkaline Phosphatase 176 H (38-126) U/L Albumin 3.9 (3.5-5.1) g/dL
[2024-08-08] MEDS: SODIUM CHLORIDE 0.9% IV 1,000 ML 125 ML IV CONT (09:37)
--- NOTE | 2024-08-08 10:43 | PC.NURSE ---
pt to MRI via wheelchair
--- NOTE | 2024-08-08 13:00 | WPDGICN ---
Assessment and Plan Assessment and plan (1) Cholelithiasis: Code(s): K80.20 - Calculus of gallbladder without cholecystitis without obstruction Status: Acute Assessment and Plan: surgery on board no pancreatitis mrcp was just completed, need to assess biliary system to see if stone or filling defect then we will make a decision if ercp is warranted most likely will need interval cholecystectomy given presentation with jaundice and also polyp in GB started on abx (2) Elevated liver enzymes: Code(s): R74.8 - Abnormal levels of other serum enzymes Status: Acute Assessment and Plan: hepatitis panel negative from gb, pending mrcp (3) Gallbladder polyp: Code(s): K82.4 - Cholesterolosis of gallbladder Status: Acute (4) Nausea & vomiting: Code(s): R11.2 - Nausea with vomiting, unspecified Status: Acute GI Consult Note Consult date/time: 08/08/24 13:00 Reason for consult: elevated liver enzymes, cholelithiasis HPI: Delma Webber is a 29 year old female with no major chronic medical problems here with new onset of nause and vomiting (she says that had GI bug at home with other family members sick but her urine turned yellow, also had nausea and emesis after eating, no chills or fever but dry mouth and feeling sick. She came to ER, noted elevated liver enzymes with bili 4, also transaminases elevated, CT scan cholelithiasis and ultrasound 1.2 cm GB polyp. She says that about 12 years ago had ER visit with GB inflammation but treated as outpatient. Also few months ago after having her third child had intermittent ruq pain. Never had scopes. Review of Systems Constitutional: Constitutional: Denies chills Eyes: Eyes: Denies blurry vision ENT: Reports Normal hearing present Cardiovascular: Cardiovascular: Denies chest pain Respiratory: Respiratory: Denies cough Gastrointestinal: Gastrointestinal: Reports abdominal pain and Reports nausea Genitourinary: Comments: dark urine Musculoskeletal: Musculoskeletal: Denies myalgias Integumentary/Breasts: Skin/Breast: Denies rash Neurologic: Denies Abnormal speech present Psychiatric: Psychiatric: Denies behavioral changes [facility] Past Medical History Medical History (Updated 08/08/24 @ 13:05 by Ric Michael MD) Nausea & vomiting Elevated liver enzymes Migraines Hearing difficulty Asthma as child Anxiety Family History Family History Father Hypertension Mother Diabetes mellitus Depression Sibling Depression Grandparent Depression Heart disease Cerebrovascular accident Grandparent Lung cancer Heart disease Social History Social History Social History: Surrogate medical decision maker: Primo Webber, spouse. Code status: Full code. Smoking status: Never smoker Tobacco type: e-cigarettes/vaping Second hand tobacco smoke exposure: No Smoking end date: 09/25/21 Alcohol intake: never Substance use: never Substance use type: does not use Do You Feel Safe in your Home?: Yes Lack of Transportation: YES Lack of Food: Never True Current Housing: I Have Housing Concerned About Future Housing: No Difficulty Paying Gas/Electric Bills: No Difficulty Paying for Meds: No Currently Unemployed: No Education: High School Diploma/GED Difficulty w/ Childcare or Family Care: No Living arrangements: with family Additional living arrangements comments: Lives with spouse and their 3 children. 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 Spiritual care concerns: No Meds Home Medications and Allergies Home Medications ?Medication ?Instructions ?Recorded ?Confirmed ?Type ibuprofen 600 mg tablet 600 mg PO TID #20 tabs 01/24/24 08/07/24 Rx acetaminophen 325 mg tablet 650 mg PO Q4H PRN fever or pain 08/07/24 08/07/24 History (Tylenol) Allergies Allergy/AdvReac Type Severity Reaction Status Date / Time amoxicillin AdvReac Mild Hives Verified 08/07/24 16:40 latex AdvReac Mild Hives Verified 08/07/24 16:40 Vital Signs Vital Signs - 24 hr 08/07/24 14:13 08/07/24 20:00 08/07/24 21:08 Temperature 97.8 F 97.9 F Pulse Rate 95 93 93 Respiratory Rate 18 16 16 Blood Pressure 127/77 145/79 H Pulse Oximetry 100 100 100 Oxygen Delivery Room Air 08/08/24 06:00 08/08/24 08:00 Temperature 97.6 F Pulse Rate 90 Respiratory Rate 16 Blood Pressure 133/60 Pulse Oximetry 99 Oxygen Delivery Room Air Exam Const: General: comfortable and no acute distress HENMT: Face/Nose/Sinus: Normal nares present Eyes: General: appearance normal, both eyes and all related structures Neck: Neck: supple Resp: Auscultation: clear to auscultation bilaterally Cardio: Rate: regular rate Rhythm: regular rhythm GI: Inspection: non-distended GI Palp: Yes Soft to palpation Skin: General skin exam: no rashes or lesions noted Neuro: General: gait normal Speech: normal speech Motor exam (neuro): 5/5 motor strength present throughout Extrem: General: normal to inspection Psych: Mental Status: mental status grossly normal Results Labs 08/08/24 04:40 08/08/24 04:40 Labs: Short CBC 08/08/24 Range/Units 04:40 WBC 6.3 (4.5-10.0) K/mm3 Hgb 11.1 L (12.0-15.0) g/dL Hct 34.6 L (37.0-47.0) % Plt Count 236 (150-375) k/mm3 BMP 08/08/24 04:40 Sodium 137 Potassium 3.7 Chloride 107 Carbon Dioxide 23 BUN 7 Creatinine 0.56 L Glucose 80 Calcium 9.1 Cardiac Enzymes 08/08/24 Range/Units 04:40 Total Creatine Kinase 46 (30-135) U/L Liver Function 08/08/24 Range/Units 04:40 Total Bilirubin 3.4 H (0.2-1.3) mg/dL AST 217 H (14-36) U/L ALT 466 H (6-35) U/L Alkaline Phosphatase 176 H (38-126) U/L Albumin 3.9 (3.5-5.1) g/dL
[2024-08-08 14:10] VITALS: BP 124/76; PULSE 103; RESP 16; TEMP 36.6; O2SAT 100
--- NOTE | 2024-08-08 14:15 | WPDPN ---
Progress Note: A&P Assessment and Plan (1) Gallbladder polyp: Code(s): K82.4 - Cholesterolosis of gallbladder Status: Acute Assessment and Plan: MRCP reading is pending. Will decide if lap chol here at [facility] is indicated based on the MRCP findings. Await radiology reading. Okay to advance to low-fat diet later today. If it appears that a laparoscopic cholecystectomy can be done safely here and that the polyp seems to be mostly mucosal based then can likely discharge home and arrange for elective outpatient laparoscopic cholecystectomy. (2) Transaminitis: Code(s): R74.01 - Elevation of levels of liver transaminase levels Status: Acute Assessment and Plan: Liver enzymes are decreasing. Follow-up with another level tomorrow morning and his still is decreasing then likely can discharge home with follow-up with me as an outpatient. Subjective Date/time seen: 08/08/24 14:15 Interval history: Patient doing well today. Denies any nausea or vomiting. No abdominal pain. Her MRCP was done this morning but the reading is pending. Liver enzymes are decreasing. Exam GI: Other: Abdomen is soft and nondistended. Exam is benign. Objective Data Vital Signs Vital Signs: Vital Signs - 24 hr 08/07/24 20:00 08/07/24 21:08 08/08/24 06:00 Temperature 36.6 C 36.4 C Pulse Rate 93 93 90 Respiratory Rate 16 16 16 Blood Pressure 145/79 H 133/60 Pulse Oximetry 100 100 99 Oxygen Delivery Room Air 08/08/24 08:00 Temperature Pulse Rate Respiratory Rate Blood Pressure Pulse Oximetry Oxygen Delivery Room Air Intake/Output Intake/Output: Intake & Output 08/05/24 08/06/24 08/07/24 08/08/24 23:59 23:59 23:59 23:59 Intake Total 1250 1100 Balance 1250 1100 Meds/Results Medications: Active Medications Generic Name Dose Route Start Last Admin Trade Name Freq PRN Reason Stop Dose Admin Ceftriaxone Sodium 1 gm in 50 mls @ 100 mls/hr 08/08/24 12:00 08/08/24 12:29 Rocephin 1 Gm/Ns 50 Ml IVPB 100 mls/hr Q24H DOROTHY Administration Metronidazole 500 mg in 100 mls @ 100 mls/hr 08/07/24 11:20 08/08/24 05:48 Flagyl 500 Mg/Iso Soln 100 Ml IVPB 100 mls/hr Q8HR DOROTHY Administration Sodium Chloride 1,000 mls @ 125 mls/hr 08/07/24 12:40 08/08/24 09:37 Normal Saline Iv IV CONT 125 mls/hr .Q8H DOROTHY Administration Morphine Sulfate 2 mg 08/07/24 12:40 Morphine Sulfate (*Crx) 2 Mg/Ml Inj IV PUSH Q2H PRN Pain Rated 7-10 Ondansetron HCl 4 mg 08/07/24 12:40 Ondansetron Inj 4 Mg/2 Ml Vial IV PUSH Q4H PRN Nausea Radiology Results: ITS Impressions Abdomen/Pelvis CT 08/07/24 08:30 IMPRESSION: Splenic enlargement. Cholelithiasis. Mild bilateral hydroureteronephrosis without a discrete obstruction identified. Upper Quadrant Ultrasound 08/07/24 10:24 IMPRESSION: 1: Suspicious nondependent 1.2 cm gallbladder mass with internal vascularity, consistent with a polyp, at increased risk for malignancy. Recommend surgical consultation. Labs Labs: Laboratory Results - last 24 hr 08/07/24 08/08/24 06:36 04:40 WBC 6.3 RBC 3.99 L Hgb 11.1 L Hct 34.6 L MCV 86.7 MCH 27.8 MCHC 32.1 RDW 12.9 Plt Count 236 MPV 9.3 Sodium 137 Potassium 3.7 Chloride 107 Carbon Dioxide 23 Anion Gap 7 BUN 7 Creatinine 0.56 L Estim Creat Clear Calc 117 Estimated GFR > 60 Glucose 80 Calcium 9.1 Magnesium 2.0 Total Bilirubin 3.4 H AST 217 H ALT 466 H Alkaline Phosphatase 176 H Total Creatine Kinase 46 Total Protein 7.0 Albumin 3.9 Lipase 52 Acetaminophen < 10 L
[2024-08-08] MEDS: IBUPROFEN 400 MG TABLET PO (17:23)
[2024-08-08 20:20] VITALS: PULSE 103; RESP 16; O2SAT 100
[2024-08-08 21:19] VITALS: PULSE 102; RESP 20; O2SAT 98
[2024-08-08 21:33] VITALS: BP 132/76; PULSE 88; RESP 18; TEMP 36.8; O2SAT 100
[2024-08-09] MEDS: SODIUM CHLORIDE 0.9% IV 1,000 ML 125 ML IV CONT (04:52)
[2024-08-09 05:19] LABS: Basophils Percent Auto 0.5 % (0.2-1.2); Eosinophils Absolute Auto 0.1 K/mm3 (0-0.3); Eosinophils Percent Auto 1.4 % (0-4.4); Hematocrit 34.1 % (37.0-47.0); Hemoglobin 11.2 g/dL (12.0-15.0); Immature Granulocyte Absolute 0.01 K/mm3 (0.00-0.031); Immature Granulocyte Percent A 0.2 % (0-0.5); Lymphocytes Absolute Auto 2.04 K/mm3 (0.9-3.2); Lymphocytes Percent Auto 36.2 % (18.3-44.2); Mean Corpuscular HGB Conc 32.8 g/dl (32-36); Mean Corpuscular Hemoglobin 27.9 pg (26-34); Mean Corpuscular Volume 84.8 fl (80-100); Mean Platelet Volume 9.3 fl (7.4-10.4); Monocytes Absolute Auto 0.5 K/mm3 (0.1-0.6); Neutrophils Percent Auto 52.7 % (45.5-73.1); Platelet Count Result 250 k/mm3 (150-375); Red Blood Count 4.02 M/mm3 (4.2-5.4); Red Cell Distribution Width 13.1 % (11.5-14.5); White Blood Count 5.6 K/mm3 (4.5-10.0)
[2024-08-09 05:33] LABS: Alanine Aminotransferase 359 U/L (6-35); Albumin Level 3.8 g/dL (3.5-5.1); Alkaline Phosphatase 167 U/L (38-126); Anion Gap 8 mmol/L (4-12); Aspartate Amino Transferase 144 U/L (14-36); Bilirubin,Total 3.2 mg/dL (0.2-1.3); Blood Urea Nitrogen 5 mg/dL (7-17); Carbon Dioxide 25 mmol/L (22-30); Chloride 107 mmol/L (98-107); Estimated CRCL calculation 113 ml/min; Estimated Glomerular Filt Rate > 60; Glucose 92 mg/dL (65-110); Potassium 3.4 mmol/L (3.4-5.0); Sodium 140 mmol/L (137-145)
[2024-08-09] MEDS: metroNIDAZOLE 500 MG/ISO 100ML 500 MG/100 ML BAG 100 MG IVPB (05:55)
[2024-08-09 06:00] VITALS: BP 129/73; PULSE 86; RESP 16; TEMP 36.4; O2SAT 100
--- NOTE | 2024-08-09 10:22 | P.PN_ITS ---
Progress Note: A&P Assessment and Plan (1) Gallbladder polyp: Code(s): K82.4 - Cholesterolosis of gallbladder Status: Acute Assessment and Plan: Awaiting the official radiology reading on the MRCP. To my review of the images I do think she has gallstones. When he confirmed the presence of the polyp and then she will need to have a cholecystectomy. I think she is doing well now and is totally asymptomatic. I think she can go home today as long as okay with GI and follow-up with repeat LFTs on Saturday which I will order. I would then have her follow-up see me in the office on Saturday at which time we will discuss the MRCP results with her and surgical planning. She should stay on a low-fat diet at home. (2) Cholelithiasis: Code(s): K80.20 - Calculus of gallbladder without cholecystitis without obstruction Status: Acute Assessment and Plan: Likely will need outpatient laparoscopic cholecystectomy. (3) Transaminitis: Code(s): R74.01 - Elevation of levels of liver transaminase levels Status: Acute Plan LFTs are decreasing today. Total bilirubin is down to 3.2. She is totally asymptomatic. Can follow with outpatient labs to make sure they normalized. Subjective Date/time seen: 08/09/24 10:22 Interval history: Patient is doing well today. No nausea or vomiting. No abdominal pain or back pain. White blood count normal. No fever. Total bili was decreased down to 3.2. Liver enzymes are slowly decreasing as well. MRCP was done yesterday. Official radiology reading is still pending. Exam GI: Other: Abdomen is soft and nondistended. No tenderness to palpation. Exam is benign. Objective Data Vital Signs Vital Signs: Vital Signs - 24 hr 08/08/24 14:10 08/08/24 20:20 08/08/24 21:19 Temperature 36.6 C Pulse Rate 103 H 103 H 102 H Respiratory Rate 16 16 20 Blood Pressure 124/76 Pulse Oximetry 100 100 98 Oxygen Delivery Room Air Room Air Fraction of Inspired Oxygen 21 08/08/24 21:33 08/09/24 06:00 08/09/24 09:05 Temperature 36.8 C 36.4 C Pulse Rate 88 86 Respiratory Rate 18 16 Blood Pressure 132/76 129/73 Pulse Oximetry 100 100 Oxygen Delivery Room Air Fraction of Inspired Oxygen Intake/Output Intake/Output: Intake & Output 08/06/24 08/07/24 08/08/24 08/09/24 23:59 23:59 23:59 23:59 Intake Total 1250 2900 1480 Balance 1250 2900 1480 Meds/Results Medications: Active Medications Generic Name Dose Route Start Last Admin Trade Name Freq PRN Reason Stop Dose Admin Ceftriaxone Sodium 1 gm in 50 mls @ 100 mls/hr 08/08/24 12:00 08/08/24 12:59 Rocephin 1 Gm/Ns 50 Ml IVPB Infused Q24H DOROTHY Infusion Metronidazole 500 mg in 100 mls @ 100 mls/hr 08/07/24 11:20 08/09/24 05:55 Flagyl 500 Mg/Iso Soln 100 Ml IVPB 100 mls/hr Q8HR DOROTHY Administration Sodium Chloride 1,000 mls @ 125 mls/hr 08/07/24 12:40 08/09/24 04:52 Normal Saline Iv IV CONT 125 mls/hr .Q8H DOROTHY Administration Ibuprofen 400 mg 08/08/24 16:37 08/08/24 17:23 Ibuprofen 400 Mg Tablet PO 400 mg Q6H PRN Administration Pain Rated 1-3 Morphine Sulfate 2 mg 08/07/24 12:40 Morphine Sulfate (*Crx) 2 Mg/Ml Inj IV PUSH Q2H PRN Pain Rated 7-10 Ondansetron HCl 4 mg 08/07/24 12:40 Ondansetron Inj 4 Mg/2 Ml Vial IV PUSH Q4H PRN Nausea Radiology Results: ITS Impressions Abdomen/Pelvis CT 08/07/24 08:30 IMPRESSION: Splenic enlargement. Cholelithiasis. Mild bilateral hydroureteronephrosis without a discrete obstruction identified. Upper Quadrant Ultrasound 08/07/24 10:24 IMPRESSION: 1: Suspicious nondependent 1.2 cm gallbladder mass with internal vascularity, consistent with a polyp, at increased risk for malignancy. Recommend surgical consultation. Labs Labs: Laboratory Results - last 24 hr 08/09/24 04:34 WBC 5.6 RBC 4.02 L Hgb 11.2 L Hct 34.1 L MCV 84.8 MCH 27.9 MCHC 32.8 RDW 13.1 Plt Count 250 MPV 9.3 Immature Gran % (Auto) 0.2 Neut % (Auto) 52.7 Lymph % (Auto) 36.2 [place] % (Auto) 9.0 H Eos % (Auto) 1.4 Baso % (Auto) 0.5 Lymph # (Auto) 2.04 [place] # (Auto) 0.5 Eos # (Auto) 0.1 Baso # (Auto) 0.0 Abs Immat Gran (auto) 0.01 Absolute Neuts (auto) 3.0 Absolute Nucleated RBC 0.000 Nucleated RBC % 0.0 Sodium 140 Potassium 3.4 Chloride 107 Carbon Dioxide 25 Anion Gap 8 BUN 5 L Creatinine 0.58 L Estim Creat Clear Calc 113 Estimated GFR > 60 Glucose 92 Calcium 9.0 Total Bilirubin 3.2 H AST 144 H ALT 359 H Alkaline Phosphatase 167 H Total Protein 7.0 Albumin 3.8
[2024-08-09 14:11] VITALS: BP 135/84; PULSE 77; RESP 16; TEMP 36.4; O2SAT 100
--- NOTE | 2024-08-09 14:19 | P.PNGI_ITS ---
Progress Note: A&P Assessment and Plan (1) Nausea & vomiting: Code(s): R11.2 - Nausea with vomiting, unspecified Status: Acute Assessment and Plan: resolved, back to her baseline (2) Cholelithiasis: Code(s): K80.20 - Calculus of gallbladder without cholecystitis without obstruction Status: Acute Assessment and Plan: MRCP reviewed, 3 mm stone in bile duct I explained to patient that I can do ERCP tomorrow but she can not stay because her children She will be at risk of cholangitis, recurrent biliary pain, pancreatitis but still is not staying in the hospital despite my recommendation we will try to schedule as outpatient but aware that may take longer time as our schedule is quite busy for outpatient cases after ercp will need interval cholecystectomy, surgery team on board low fat diet for now (3) Elevated liver enzymes: Code(s): R74.8 - Abnormal levels of other serum enzymes Status: Acute Subjective Date/time seen: 08/09/24 14:19 Interval history: no nausea and tolerating diet she says that can not stay in the hospital because has to take care of her kids, she is back to her baseline and would rather follow-up as outpatient Review of Systems Review of Systems: All systems reviewed & are unremarkable except as noted in HPI and below Exam Const: General: comfortable and no acute distress HENMT: Face/Nose/Sinus: Normal nares present Eyes: General: appearance normal, both eyes and all related structures Neck: Neck: no JVD Resp: Auscultation: clear to auscultation bilaterally Cardio: Rate: regular rate Rhythm: regular rhythm GI: Inspection: non-distended GI Palp: Yes Soft to palpation and No Tenderness to palpation present (GI) Auscultation: normal bowel sounds Skin: General skin exam: normal color Neuro: General: gait normal Speech: normal speech Extrem: General: normal to inspection Psych: Mental Status: mental status grossly normal Objective Data Vital Signs Vital Signs: Vital Signs - 24 hr 08/08/24 20:20 08/08/24 21:19 08/08/24 21:33 Temperature 98.3 F Pulse Rate 103 H 102 H 88 Respiratory Rate 16 20 18 Blood Pressure 132/76 Pulse Oximetry 100 98 100 Oxygen Delivery Room Air Room Air Fraction of Inspired Oxygen 08/09/24 06:00 08/09/24 09:05 Temperature 97.6 F Pulse Rate 86 Respiratory Rate 16 Blood Pressure 129/73 Pulse Oximetry 100 Oxygen Delivery Room Air Fraction of Inspired Oxygen Intake/Output Intake/Output: Intake & Output 08/06/24 08/07/24 08/08/24 08/09/24 23:59 23:59 23:59 23:59 Intake Total 1250 2900 1960 Balance 1250 2900 1959 Meds/Results Medications: Active Medications Generic Name Dose Route Start Last Admin Trade Name Freq PRN Reason Stop Dose Admin Ceftriaxone Sodium 1 gm in 50 mls @ 100 mls/hr 08/08/24 12:00 08/09/24 13:08 Rocephin 1 Gm/Ns 50 Ml IVPB 100 mls/hr Q24H DOROTHY Administration Metronidazole 500 mg in 100 mls @ 100 mls/hr 08/07/24 11:20 08/09/24 05:55 Flagyl 500 Mg/Iso Soln 100 Ml IVPB 100 mls/hr Q8HR DOROTHY Administration Sodium Chloride 1,000 mls @ 125 mls/hr 08/07/24 12:40 08/09/24 04:52 Normal Saline Iv IV CONT 125 mls/hr .Q8H DOROTHY Administration Ibuprofen 400 mg 08/08/24 16:37 08/08/24 17:23 Ibuprofen 400 Mg Tablet PO 400 mg Q6H PRN Administration Pain Rated 1-3 Morphine Sulfate 2 mg 08/07/24 12:40 Morphine Sulfate (*Crx) 2 Mg/Ml Inj IV PUSH Q2H PRN Pain Rated 7-10 Ondansetron HCl 4 mg 08/07/24 12:40 Ondansetron Inj 4 Mg/2 Ml Vial IV PUSH Q4H PRN Nausea Radiology Results: ITS Impressions Abdomen/Pelvis CT 08/07/24 08:30 IMPRESSION: Splenic enlargement. Cholelithiasis. Mild bilateral hydroureteronephrosis without a discrete obstruction identified. Upper Quadrant Ultrasound 08/07/24 10:24 IMPRESSION: 1: Suspicious nondependent 1.2 cm gallbladder mass with internal vascularity, consistent with a polyp, at increased risk for malignancy. Recommend surgical consultation. MRCP 08/09/24 13:52 IMPRESSION: 1. Cholelithiasis and likely choledocholithiasis with suggestion of a 3 mm stone at the distalmost common bile duct and mild secondary intrahepatic biliary ductal dilation and dilation of the common hepatic and bile ducts, each measuring up to 8 mm in diameter. Labs Labs: Laboratory Results - last 24 hr 08/09/24 04:34 WBC 5.6 RBC 4.02 L Hgb 11.2 L Hct 34.1 L MCV 84.8 MCH 27.9 MCHC 32.8 RDW 13.1 Plt Count 250 MPV 9.3 Immature Gran % (Auto) 0.2 Neut % (Auto) 52.7 Lymph % (Auto) 36.2 [place] % (Auto) 9.0 H Eos % (Auto) 1.4 Baso % (Auto) 0.5 Lymph # (Auto) 2.04 [place] # (Auto) 0.5 Eos # (Auto) 0.1 Baso # (Auto) 0.0 Abs Immat Gran (auto) 0.01 Absolute Neuts (auto) 3.0 Absolute Nucleated RBC 0.000 Nucleated RBC % 0.0 Sodium 140 Potassium 3.4 Chloride 107 Carbon Dioxide 25 Anion Gap 8 BUN 5 L Creatinine 0.58 L Estim Creat Clear Calc 113 Estimated GFR > 60 Glucose 92 Calcium 9.0 Total Bilirubin 3.2 H AST 144 H ALT 359 H Alkaline Phosphatase 167 H Total Protein 7.0 Albumin 3.8
--- NOTE | 2024-08-09 14:40 | P.DS_ITS ---
DS: Admitting Diagnosis Discharge Date 08/09/2024 Admitting Diagnosis Cholelithiasis DS: Discharge Diagnosis Discharge Diagnosis (1) Gallbladder polyp: Code(s): K82.4 - Cholesterolosis of gallbladder Status: Acute Assessment and Plan: MRCP 08/08 to better visualize IMPRESSION: 1. Cholelithiasis and likely choledocholithiasis with suggestion of a 3 mm stone at the distalmost common bile duct and mild secondary intrahepatic biliary ductal dilation and dilation of the common hepatic and bile ducts, each measuring up to 8 mm in diameter. (2) Transaminitis: Code(s): R74.01 - Elevation of levels of liver transaminase levels Status: Acute Assessment and Plan: Her LFTs are elevated in a mixed hepatocellular and cholestatic pattern 08/09 labs yielding Total bili: 3.2 AST: 144 ALT: 359 Alk phos: 167 -->A significant decrease from 08/07 upon arrival to ED -Per gen surg note today: LFTs are decreasing today. Total bilirubin is down to 3.2. She is totally asymptomatic. Can follow with outpatient labs to make sure they normalized. -Plan for lab work 08/11 and f/u appt with gen surg 08/12 (3) Cholelithiasis: Code(s): K80.20 - Calculus of gallbladder without cholecystitis without obstruction Status: Acute Assessment and Plan: A/P CT & RUQ US: showed cholelithiasis as well as a 1.2 x 0.6 x 1.2 cm non dependent mass in the gallbladder consistent with a gallbladder polyp. Common bile duct size was normal. There is no evidence of acute cholecystitis on imaging. -MRCP ordered for further evaluation as it is possible that she passed a gallstone earlier this week when she was having the pain in her mid back radiating in a band-like fashion to upper abdomen. -Acetaminophen level WDL. -->IMPRESSION: 1. Cholelithiasis and likely choledocholithiasis with suggestion of a 3 mm stone at the distalmost common bile duct and mild secondary intrahepatic biliary ductal dilation and dilation of the common hepatic and bile ducts, each measuring up to 8 mm in diameter. -Surgery has been consulted as she will likely need a cholecystectomy as an outpatient so long as the MRCP shows a polyp of that size -->-Per gen surg note 08/09: Awaiting the official radiology reading on the MRCP. To my review of the images I do think she has gallstones. When he confirmed the presence of the polyp and then she will need to have a cholecystectomy. I think she is doing well now and is totally asymptomatic. I think she can go home today as long as okay with GI and follow-up with repeat LFTs on Saturday which I will order. I would then have her follow-up see me in the office on Saturday at which time we will discuss the MRCP results with her and surgical planning. She should stay on a low-fat diet at home. -GI was also consulted and their input is appreciated. Per their rounds today, 08/09: MRCP reviewed, 3 mm stone in bile duct I explained to patient that I can do ERCP tomorrow but she can not stay because her children She will be at risk of cholangitis, recurrent biliary pain, pancreatitis but still is not staying in the hospital despite my recommendation we will try to schedule as outpatient but aware that may take longer time as our schedule is quite busy for outpatient cases after ercp will need interval cholecystectomy, surgery team on board low fat diet for now Pt will f/u with GI outpt. No need to send pt home with abx per GI. Pt was experiencing some R mid back pain upon discharge, I gave her one dose of 5mg oxycodone with 400mg ibuprofen for break through pain. I advised her to continue to use ibuprofen at home for pain control and to make sure she f/u with surgery on Saturday, pt agreeanle. Plan D/C with lab, gen surg, and GI f/u. DS: Summary Hospital Course Reason for hospitalization: Cholelithiasis Hospital Course: Pt is a 29-year-old female who presented to the emergency department via private vehicle on 08/07 with complaints of vomiting and feelings of dehydration. Her eldest child recently had a GI illness and she developed nausea and vomiting last evening. She is feeling dehydrated and has noticed that her urine is dark though that has been for several days. With further questioning she reports having pain in her upper back for couple of days earlier this week. She has difficulties describing the pain but tells me that she initially thought it was due to low result of her bad posture after spending long hours studying on the computer. The pain did radiate somewhat in a bandlike fashion to the upper abdomen and it sounds as though she had some nausea with that as well. She has been taking is ibuprofen and acetaminophen for that pain but admits that she has been alternating those medications daily for several months due to dental caries. She denies fever, chest pain, pleuritic pain, shortness of breath, current abdominal pain, hematemesis, melena, hematochezia, diarrhea, dysuria, and hematuria. She has not noticed jaundice and denies pruritus. In the ED: She was afebrile on arrival with a blood pressure of 142/87. Labs were significant for a total bilirubin 4.9, AST 544, ALT 633, alkaline phosphatase 208, lipase 108. Hepatitis and mono screens were negative. CT of the abdomen pelvis showed splenic enlargement, cholelithiasis, and mild bilateral hydroureteronephrosis without a discrete obstruction identified. Right upper quadrant ultrasound showed a suspicious nondependent 1.2 cm gallbladder mass consistent with polyp. She was given a dose of ceftriaxone and metronidazole to cover possible cholecystitis and she is being admitted in this setting for surgery consultation. 08/09: Upon rounds today, pt states that she is not in any pain, even with abd and CVA/back palpation. She states that her N/V has also ceased. Pt's liver enzymes down considerably from this AM lab draw. Upon re-exam this afternoon, pt c/o moderate R mid back pain. Instead of IV pain medication because she was about to get D/C, pt given one dose of Oxy 5mg and Ibuprofen 400mg. Pt instructed to continue with ibuprofen at home for pain control. Pt in no need of home abx per GI. MRCP displayed: 1. Cholelithiasis and likely choledocholithiasis with suggestion of a 3 mm stone at the distalmost common bile duct and mild secondary intrahepatic biliary ductal dilation and dilation of the common hepatic and bile ducts, each measuring up to 8 mm in diameter. Pt in need to leave to tend to her children and is unable to stay for inpatient ERCP. Risks discussed with her via GI, but she persists. Pt to f/u with gen surg and GI for sx management and plans for future care. Status at Discharge Cognitive/behavioral status at discharge: stable Functional status at discharge: independent ambulation Overall status at discharge: patient is progressing back to baseline Time Spent with Patient Time attestation: Total time spent providing and/or coordinating discharge services: Exam Narrative: General: Nontoxic-appearing female sitting up in bed in no distress. Weight: 78 kg. BMI: 33.6. HEENT: PERRL, EOMI. Mild scleral icterus. Oral mucosa moist. Neck: Supple. Respiratory: Lungs are clear to auscultation bilaterally. Cardiovascular: Regular rate and rhythm with S1-S2. Gastrointestinal: Abdomen is soft, nontender, and nondistended with positive bowel sounds. Negative Madrid sign. Skin: Warm and dry. Slightly jaundiced. Extremities: No cyanosis, clubbing, or edema. Radial and pedal pulses intact. Neurological: Alert. Cranial nerves 2-12 are grossly intact. No gross focal deficits to casual conversation. Psychiatric: Pleasant and cooperative with normal mood and affect. Judgment and insight intact. Const: General: comfortable and no acute distress HENMT: Face/Nose/Sinus: Normal nares present Mouth: Yes moist mucous membranes Eyes: General: appearance normal, both eyes and all related structures Sclera: sclerae normal Neck: Neck: supple and no JVD Carotids: no bruits Resp: Effort & Inspection: normal respiratory effort Auscultation: clear to auscultation bilaterally Cardio: Rate: regular rate Rhythm: regular rhythm GI: Inspection: non-distended Auscultation: normal bowel sounds Other: Negative Madrid sign Skin: General skin exam: normal color and no rashes or lesions noted Wounds: no wounds Neuro: Speech: normal speech Motor exam (neuro): Normal motor muscle tone present throughout Sensory Exam: normal sensation Extrem: General: normal to inspection, no edema and no pedal edema Psych: Mental Status: mental status grossly normal Affect: normal affect DS: Data Data Completed and Pending Labs on day of discharge: Labs from last 24 hours 08/09/24 04:34 WBC 5.6 RBC 4.02 L Hgb 11.2 L Hct 34.1 L MCV 84.8 MCH 27.9 MCHC 32.8 RDW 13.1 Plt Count 250 MPV 9.3 Immature Gran % (Auto) 0.2 Neut % (Auto) 52.7 Lymph % (Auto) 36.2 [place] % (Auto) 9.0 H Eos % (Auto) 1.4 Baso % (Auto) 0.5 Lymph # (Auto) 2.04 [place] # (Auto) 0.5 Eos # (Auto) 0.1 Baso # (Auto) 0.0 Abs Immat Gran (auto) 0.01 Absolute Neuts (auto) 3.0 Absolute Nucleated RBC 0.000 Nucleated RBC % 0.0 Sodium 140 Potassium 3.4 Chloride 107 Carbon Dioxide 25 Anion Gap 8 BUN 5 L Creatinine 0.58 L Estim Creat Clear Calc 113 Estimated GFR > 60 Glucose 92 Calcium 9.0 Total Bilirubin 3.2 H AST 144 H ALT 359 H Alkaline Phosphatase 167 H Total Protein 7.0 Albumin 3.8 Discharge Plan Discharge Attending physician on discharge: Loretta Hays Consulting providers: Owen Loco; Ric Michael; Angelo Hernandez Discharging Clinician: Loretta Hays Anticipated Discharge Date/Time: 08/09/24 14:42 Patient Disposition: Home Activity: as tolerated Diet: low fat Discharge Instructions: Remember to follow up with general surgery (), GI (Dr. Michael), and have your lab work performed this coming Saturday08/11/2204. Try to take it easy as your MRCP did show a 3mm stone, Dr. Hernandez will discuss your results more with you at your appt on Saturday. Continue to take ibuprofen as needed for your back pain. Continue to check your blood pressure and blood sugar at home if applicable. Keep your scheduled appts with your primary care provider and any specialist that you may see. Return to the emergency department if you develop sudden shortness of breath, chest pain, a fever of greater than 101.5, or nausea, vomiting, abd pain, or diarrhea that does not go away. Follow-up with your primary care provider within 1-2 weeks, they will want to be updated on your inpatient stay in the hospital. Thank you for choosing [facility] for your healthcare needs. Patient to get outpatient labs done in the [facility] on SaturdayAugust 11. Orders in the computer. Patient Instructions: Antibiotic Form, Gallstones (GEN), MRCP (Magnetic Resonance Cholangiopancreatography) (GEN), ERCP (Endoscopic Retrograde Cholangiopancreatography) (GEN) Patient Language: Yakut Stand Alone Forms: General Discharge Information Follow-up/Referrals: Rossi,MD Kasie [Primary Care Provider] - 2 Weeks Ric Michael MD [Physician] - 1 Week Angelo Hernandez MD [Physician] - 08/12/24 (Patient to call office on Saturday to make follow-up appointment to see Dr. Hernandez in the office on Saturday afternoon August 12, 2024.) Discharge Medications: Continued ibuprofen 600 mg tablet 600 mg PO TID Qty: 20 0RF Discontinued acetaminophen [Tylenol] 325 mg tablet 650 mg PO Q4H PRN (Reason: fever or pain) Date of admission: 08/07/24 12:40 Primary Care Provider: Rossi,Kasie Admitting Provider: Royer Lopez Attending physician on admission: Royer Lopez Condition: Stable Quality VTE Prophylaxis VTE prophylaxis: mechanical ordered Hospitalist MIPS Heart Failure (Exclusion) Patient has history of Heart Transplant or Left Ventricular Assistive Device?: No IF YES, STOP HERE Heart Failure (Qualifier) Patient has current or prior documentation of LVEF less than or equal to 40%, or mod/servere depressed LVSF?: No IF NO, STOP HERE
[2024-08-09] MEDS: IBUPROFEN 400 MG TABLET PO (15:38)
[2024-08-09] MEDS: oxyCODONE HCL (*CRX) 5 MG TAB IR PO (15:38)
== END 2024-08-09 15:45 | disposition home or self-care (01) ==
LOC: ANHED 08:27 → ANH2MED 13:53
PROVIDERS: Physician Assistant; Student in an Organized Health Care Education/Training Program; Admitting Provider Internal Medicine; Emergency Provider Emergency Medicine; PCP Internal Medicine; Visit Provider Internal Medicine
DX: K80.20 Calculus of gallbladder without cholecystitis without obstruction (principal); R74.01 Elevation of levels of liver transaminase levels; R74.8 Abnormal levels of other serum enzymes
CPT/HCPCS: 36415; 74177; 74183; 76376; 76705; 80053; 80074; 80143; 81001; 81025; 82550; 83690; 83735; 85025; 85027; 86308; 96361; 96365; 96366; 96367; 96368; 96374; 96375; 99285; A9270; A9577; G0378; J0696; J1836; J2060; J7030; Q9967

== ENCOUNTER 2024-08-11 07:49 | Outpatient (CLI) | payer OTHER, SELFPAY ==
--- OUTSIDE RECORDS SUMMARY | 2024-08-11 07:53 | XMS_ITS | Encounter Summary ---
Author Organization [facility] [place] [address] [place] [address] Care Team Providers Care Rolled Materials Worker Name Role Phone Unavailable Primary Care Provider Unavailabl e Prior Encounters Date Type Department Care Team Description 03/30/2019 Converted 13x Documents [facility] [address] [place] [id number] <No scans attached> Plan of Treatment Not on file Visit Diagnoses Not on file
--- OUTSIDE RECORDS SUMMARY | 2024-08-11 07:53 | XMS_ITS | Clinical Summary ---
Author Organization [facility] [place] Address [address] [place] [address] Care Team Providers Care Assistant Controller Name Role Phone Unavailable Primary Care Provider [...]
[2024-08-11 11:03] LABS: Alanine Aminotransferase 309 U/L (6-35); Albumin Level 4.4 g/dL (3.5-5.1); Alkaline Phosphatase 149 U/L (38-126); Aspartate Amino Transferase 106 U/L (14-36); Bilirubin Direct 0.7 mg/dL (0-0.3); Bilirubin,Total 1.2 mg/dL (0.2-1.3); Total Protein 7.9 g/dL (6.3-8.2)
== END 2024-08-11 07:50 | disposition home or self-care (01) ==
PROVIDERS: PCP Internal Medicine; Visit Provider Surgery
DX: R74.01 Elevation of levels of liver transaminase levels (principal)
CPT/HCPCS: 36415; 80076

== ENCOUNTER 2024-08-18 01:10 | Day surgery (SDC) | payer OTHER, SELFPAY ==
[2024-08-11 15:48] VITALS: BMI 33.4
[2024-08-18] VITALS (7 sets, daily range): BP systolic 108–140; BP diastolic 43–93; PULSE 57–83; RESP 16–21; TEMP 36.6–36.7; O2SAT 98–100
--- NOTE | ~2024-08-18 | XR_ITS ---
EXAMINATION: XR ERCP DATE: 08/18/2024 11:49 INDICATION: Gallstones TECHNIQUE: 6 spot fluoroscopic images of the right upper quadrant were obtained during endoscopic ret rograde cholangiopancreatography (ERCP) performed by Dr. Raúl Murillo. Radiologist was not present for the imaging or procedure. The amount of fluoroscopy time used during this procedure was 2.0 erica wilfredo. Total DAP was 0.676 mGycm^2. COMPARISON: MRI/MRCP dated 08/08/2024 FINDINGS: Images demonstrate cannulation and retrograde contrast injections into the common bile duct. Contrast also opacifies the cystic duct and gallbladder with underlying a filling defect consistent with prev ious noted cholelithiasis. There is a lucent filling defect in the common bile duct near the confluen ce with the cystic duct which could represent a stone or gas bubble. Subsequent images demonstrate ba lloon sweeping of the common bile duct. The filling defect is not identified on the final image. IMPRESSION: 1. Cholelithiasis and small lucent filling defect within the common bile duct on the initial imaging which could represent a gas bubble or common duct stone which is not visualized on the final images. Please refer to the ERCP procedure note for additional details. Reviewed, dictated and finalized at location A. IMPRESSION: 1. Cholelithiasis and small lucent filling defect within the common bile duct o n the initial imaging which could represent a gas bubble or common duct stone w hich is not visualized on the final images. Please refer to the ERCP procedure note for additional details.
--- OUTSIDE RECORDS SUMMARY | 2024-08-18 01:12 | XMS_ITS | Clinical Summary ---
Author Organization [facility] Health Address [address] [place] [address] Care Team Providers Care Scoop Operator Name Role Phone Unavailable Primary Care Provider [...]
--- OUTSIDE RECORDS SUMMARY | 2024-08-18 01:12 | XMS_ITS | Encounter Summary ---
Author Organization [facility] Health Address [address] [place] [address] Care Team Providers Care Sr Community Manager Name Role Phone Unavailable Primary Care Provider Unavailabl e Prior Encounters Date Type Department Care Team Description 03/30/2019 Converted 13x Documents [facility] [address] [place] [id number] <No scans attached> Plan of Treatment Not on file Visit Diagnoses Not on file
[2024-08-18 09:52] LABS: BEDSIDEPREGUCG Negative (Negative)
[2024-08-18] MEDS: LACTATED RINGERS 1,000 ML 150 ML IV CONT (10:13)
--- NOTE | 2024-08-18 10:31 | P.PNAN_ITS ---
Anes - Initial Pre Proc Eval Procedure: Operation Date: 08/18/24 11:30 Proposed Procedures p Endoscopic Retro Cholangiopancreatogram - Ric Michael MD Date/Time: 08/18/24 10:31 Surgeon: Ric Michael MD Pre Op Diagnosis: Abnormal levels of other serum enzymes Patient Data Age: 29 Gender: F Height: 1.52 m Weight: 75.2 kg Last Vital Signs Temp 36.7 C 08/18/24 09:46 Pulse 83 08/18/24 09:46 Resp 18 08/18/24 09:46 BP 108/65 08/18/24 09:46 Pulse Ox 100 08/18/24 09:46 O2 Del Method Room Air 08/18/24 09:46 Allergies Allergy/AdvReac Type Severity Reaction Status Date / Time amoxicillin AdvReac Mild Hives Verified 08/12/24 14:06 latex AdvReac Mild Hives Verified 08/12/24 14:06 Home Medications ?Medication ?Instructions ?Recorded ?Confirmed ?Type ibuprofen 600 mg tablet 600 mg PO TID PRN fever or pain 08/11/24 08/13/24 History Laboratory Tests 08/18/24 09:49 POC Urine HCG, Qual Negative (Negative) Patient hx anesthesia problems: none Family hx anesthesia problems: none Results Review: All pre-operative results and documents have been reviewed as part of the pre- operative evaluation. [facility] Past Medical History Medical History Nausea & vomiting Elevated liver enzymes Migraines Hearing difficulty Asthma as child Anxiety Family History Family History Father Hypertension Mother Diabetes mellitus Depression Sibling Depression Grandparent Depression Heart disease Cerebrovascular accident Grandparent Lung cancer Heart disease Social History Social History Social History: Surrogate medical decision maker: Primo Webber, spouse. Code status: Full code. Smoking status: Former smoker Tobacco type: e-cigarettes/vaping Second hand tobacco smoke exposure: No Smoking end date: 09/25/21 Alcohol intake: never Substance use: never Substance use type: does not use Do You Feel Safe in your Home?: Yes Lack of Transportation: YES Lack of Food: Never True Current Housing: I Have Housing Concerned About Future Housing: No Difficulty Paying Gas/Electric Bills: No Difficulty Paying for Meds: No Currently Unemployed: No Education: High School Diploma/GED Difficulty w/ Childcare or Family Care: No Living arrangements: with family Additional living arrangements comments: Lives with spouse and their 3 children. 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 Spiritual care concerns: No Anes - Eval Final PreProcedure Day of Procedure 08/18/24 10:31 Patient weight: obese Heart: regular rate and rhythm Lungs: clear to auscultation Airway: Mallampati scale class II Neurological: alert and oriented Last oral intake: >/= 8 hours ASA classification: II Emergent: no Anesthetic plan: proceed Anesthesia type and monitoring: general ETT and standard monitoring Results Review: All pre-operative results and documents have been reviewed as part of the pre- operative evaluation. Informed Consent: The patient's anesthetic plan and its attendant risks and benefits were discussed with the patient/family/POA. Questions were solicited and answers provided to the satisfaction of the patient/family/POA.
--- NOTE | 2024-08-18 10:38 | WPDHPUPDATE1 ---
History and Physical Update Update Date/Time: 08/18/24 10:38 History and Physical has been reviewed, including an updated exam of the patient. There are NO changes in the patient's condition. Risks, benefits, and alternatives have been discussed and questions answered. Patient agrees to proceed with procedure.
[2024-08-18] MEDS: INDOMETHACIN 50 MG SUPP.RECT 100 MG RECTAL (10:56)
== END 2024-08-18 12:48 | disposition home or self-care (01) ==
PROVIDERS: Anesthesiology; PCP Internal Medicine; Referring Provider Internal Medicine Gastroenterology; Visit Provider Internal Medicine Gastroenterology
PROC: (CPT 43260; principal; 2024-08-18 11:30)
DX: K80.70 Calculus of gallbladder and bile duct without cholecystitis without obstruction (principal); R94.5 Abnormal results of liver function studies; Z87.891 Personal history of nicotine dependence; E66.9 Obesity, unspecified; Z68.32 Body mass index [BMI] 32.0-32.9, adult
CPT/HCPCS: 43262; 43264; 74329; A9270; J0330; J1100; J2003; J2405; J2704; J7120; Q9966

== ENCOUNTER 2024-08-19 01:35 | Emergency (ER) | payer OTHER, SELFPAY ==
--- OUTSIDE RECORDS SUMMARY | 2024-08-19 01:37 | XMS_ITS | Encounter Summary ---
Author Organization [facility] Health Address [address] [place] [address] Care Team Providers Care Pulp Piler Name Role Phone Unavailable Primary Care Provider Unavailabl e Prior Encounters Date Type Department Care Team Description 03/30/2019 Converted 13x Documents [facility] [address] [place] [id number] <No scans attached> Plan of Treatment Not on file Visit Diagnoses Not on file
--- OUTSIDE RECORDS SUMMARY | 2024-08-19 01:37 | XMS_ITS | Clinical Summary ---
Author Organization [facility] Health Address [address] [place] [address] Care Team Providers Care Psychosocial Rehabilitation Counselor Name Role Phone Unavailable Primary Care Provider [...]
[2024-08-19 01:40] VITALS: BP 121/68; PULSE 66; RESP 18; TEMP 36.8; O2SAT 100
--- NOTE | 2024-08-19 02:01 | ED_ITS ---
HPI - Abdominal Pain General Chief Complaint: Abdominal Pain Stated Complaint: having a gall bladder attack Time Seen by Provider: 08/19/24 01:39 History of Present Illness HPI narrative: Patient is a 29-year-old female who presents to the ER with complaints of ?gallbladder pain. She reports she had an endoscopy earlier today, which showed that she had passed a stone. Patient reports she ate a sub at [employer] and then her symptoms flared back up. She endorses nausea and vomiting prior to her arrival in the ER. She reports she is scheduled for a cholecystectomy next Saturday. Patient denies any urinary symptoms, recent fevers, or abnormal bowel movements. Related Data Home Medications ?Medication ?Instructions ?Recorded ?Confirmed ?Last Taken ?Type ibuprofen 600 mg tablet 600 mg PO TID PRN fever or pain 08/11/24 08/13/24 Unknown History Allergies Allergy/AdvReac Type Severity Reaction Status Date / Time amoxicillin AdvReac Mild Hives Verified 08/12/24 14:06 latex AdvReac Mild Hives Verified 08/12/24 14:06 Review of Systems 2 Review of Systems: All systems reviewed & are unremarkable except as noted in HPI and below PMFSH Past Medical History Medical History Nausea & vomiting Elevated liver enzymes Migraines Hearing difficulty Asthma as child Anxiety Family History Family History Father Hypertension Mother Diabetes mellitus Depression Sibling Depression Grandparent Depression Heart disease Cerebrovascular accident Grandparent Lung cancer Heart disease Social History Social History Social History: Surrogate medical decision maker: Primo Webber, spouse. Code status: Full code. Smoking status: Former smoker Tobacco type: e-cigarettes/vaping Second hand tobacco smoke exposure: No Smoking end date: 09/25/21 Alcohol intake: never Substance use: never Substance use type: does not use Do You Feel Safe in your Home?: Yes Lack of Transportation: YES Lack of Food: Never True Current Housing: I Have Housing Concerned About Future Housing: No Difficulty Paying Gas/Electric Bills: No Difficulty Paying for Meds: No Currently Unemployed: No Education: High School Diploma/GED Difficulty w/ Childcare or Family Care: No Living arrangements: with family Additional living arrangements comments: Lives with spouse and their 3 children. 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 Spiritual care concerns: No Exam 2 Narrative: GENERAL: Well appearing, well-nourished, non-toxic, in no acute distress. HEAD: Normocephalic, atraumatic. NECK: Supple. No adenopathy, no masses. RESPIRATORY: Airway patent, respirations nonlabored. Clear to auscultation bilaterally, no rales, rhonchi, wheezing. CARDIOVASCULAR: Regular rate and rhythm without murmurs, rubs, or gallops. Peripheral pulses 2+ and equal bilaterally. ABDOMINAL: Soft, tender RUQ, nondistended, no hepatosplenomegaly. Normoactive BS. MUSCULOSKELETAL: Moves all extremities. Strength/ROM intact without gross deformities. SKIN: Warm, dry, normal color. No rashes. NEURO: A&O X3. Speech clear. Cranial nerves II-XII intact. No ataxic movements. PSYCHIATRIC: Appropriate mood and affect. Normal interaction. Course Vital Signs Vital signs: Vital Signs Temperature 36.8 C 08/19/24 01:40 Pulse Rate 66 08/19/24 01:40 Respiratory Rate 18 08/19/24 01:40 Blood Pressure 121/68 08/19/24 01:40 Pulse Oximetry 100 08/19/24 01:40 Oxygen Delivery Room Air 08/19/24 01:40 Temperature 36.8 C 08/19/24 01:40 Pulse Rate 66 08/19/24 01:40 Respiratory Rate 18 08/19/24 01:40 Blood Pressure 121/68 08/19/24 01:40 Pulse Oximetry 100 08/19/24 01:40 Oxygen Delivery Room Air 08/19/24 01:40 MDM - Abdominal Pain MDM Narrative Medical decision making narrative: Patient is a 29-year-old female who presents to the ER with complaints of ?gallbladder pain. She reports she had an endoscopy earlier today, which showed that she had passed a stone. Patient reports she ate a sub at [employer] and then her symptoms flared back up. She endorses nausea and vomiting prior to her arrival in the ER. She reports she is scheduled for a cholecystectomy next Saturday. Patient denies any urinary symptoms, recent fevers, or abnormal bowel movements. Labs Ordered: CBC, CMP, lipase Imaging Ordered: None necessary Medications Ordered: 1 L normal saline IV bolus, morphine 4 mg IV Results: Patient's CBC indicates a white blood cell count of 10.9. Her CMP indicates creatinine of 0.76, total bilirubin of 3.0, AST of 153, ALT of 152, and alkaline phosphatase of 154. Diagnosis: Cholelithiasis Patient Education/Shared MDM: Results of lab work shared with patient. Her liver enzymes are either better or consistent with her most recent lab work. She endorses improvement of symptoms following medication administration. Pt is requesting another dose of pain medication prior to discharge. She will be given a Burdett PO. Patient strongly advised to maintain hydration status upon discharge and continue a low-fat diet at time of discharge. She will be discharged home with a prescription for Burdett and Zofran. Patient should follow-up with General surgery tomorrow. Strict return precautions provided. Patient verbalized understanding and is in agreement with plan. Vital signs stable at time of discharge. All questions answered. Differential Diagnosis Differential diagnosis: Likely abdominal pain, constipation, gastroenteritis and other (Cholelithiasis) Lab Data Attestation: I reviewed the patient's lab results. 08/19/24 02:10 08/19/24 02:10 Labs: Lab Results 08/19/24 Range/Units 02:10 WBC 10.9 H (4.5-10.0) K/mm3 RBC 4.48 (4.2-5.4) M/mm3 Hgb 12.6 (12.0-15.0) g/dL Hct 37.7 (37.0-47.0) % MCV 84.2 (80-100) fl MCH 28.1 (26-34) pg MCHC 33.4 (32-36) g/dl RDW 12.9 (11.5-14.5) % Plt Count 337 (150-375) k/mm3 MPV 9.1 (7.4-10.4) fl Immature Gran % (Auto) 0.4 (0-0.5) % Neut % (Auto) 79.8 H (45.5-73.1) % Lymph % (Auto) 12.1 L (18.3-44.2) % Cache % (Auto) 7.6 (2.6-8.5) % Eos % (Auto) 0.1 (0-4.4) % Baso % (Auto) 0.0 L (0.2-1.2) % Lymph # (Auto) 1.31 (0.9-3.2) K/mm3 Cache # (Auto) 0.8 H (0.1-0.6) K/mm3 Eos # (Auto) 0.0 (0-0.3) K/mm3 Baso # (Auto) 0.0 (0.0-0.1) K/mm3 Abs Immat Gran (auto) 0.04 H (0.00-0.031) K/mm3 Absolute Neuts (auto) 8.7 H (1.3-6.7) K/mm3 Absolute Nucleated RBC 0.000 (0.0-0.012) K/mm3 Nucleated RBC % 0.0 (0.0-0.2) % Sodium 140 (137-145) mmol/L Potassium 4.1 (3.4-5.0) mmol/L Chloride 105 (98-107) mmol/L Carbon Dioxide 26 (22-30) mmol/L Anion Gap 9 (4-12) mmol/L BUN 10 D (7-17) mg/dL Creatinine 0.76 (0.7-1.0) mg/dL Estim Creat Clear Calc 86 ml/min Estimated GFR > 60 (59 - ) Glucose 123 H (65-110) mg/dL Calcium 9.6 (8.4-10.2) mg/dL Total Bilirubin 3.0 H (0.2-1.3) mg/dL AST 153 H (14-36) U/L ALT 152 H (6-35) U/L Alkaline Phosphatase 154 H (38-126) U/L Total Protein 8.0 (6.3-8.2) g/dL Albumin 4.7 (3.5-5.1) g/dL Lipase 88 (23-300) U/L Discharge Plan Discharge Clinical Impression: Abdominal pain, Back pain, Elevated liver enzymes Cholelithiasis Qualifiers: Cholelithiasis location: gallbladder Cholecystitis presence: without cholecystitis Biliary obstruction: with biliary obstruction Qualified Code(s): K 80.21 - Calculus of gallbladder without cholecystitis with obstruction Patient Disposition: Home Condition: Stable Instructions: Antibiotic Form, Gallstones (ED) Additional Instructions: Please return to the ER with any worsening symptoms. Follow-up with General surgery as planned. Take all medications as prescribed, including regularly scheduled medications. Patient Language: South Korean Prescriptions: New hydrocodone-acetaminophen 5-325 mg tablet 1 tablet PO Q6H PRN (Reason: pain) Qty: 10 0RF ondansetron 4 mg tablet,disintegrating 4 mg PO Q8H Qty: 10 0RF No Action ibuprofen 600 mg tablet 600 mg PO TID PRN (Reason: fever or pain) Follow-up/Referrals: Rossi,MD Kasie [Primary Care Provider] - Time of Disposition: 02:52
[2024-08-19] MEDS: SODIUM CHLORIDE 0.9% IV 1,000 ML 999 ML IV CONT (02:09)
[2024-08-19] MEDS: MORPHINE SULFATE (*CRX) 4 MG/ML INJ IV PUSH (02:09)
--- OUTSIDE RECORDS SUMMARY | 2024-08-19 02:13 | XMS_ITS | Clinical Summary ---
Author Organization [facility] Health Address [address] [place] [address] Care Team Providers Care Rn Access Name Role Phone Unavailable Primary Care Provider [...]
--- OUTSIDE RECORDS SUMMARY | 2024-08-19 02:13 | XMS_ITS | Encounter Summary ---
Author Organization [facility] Health Address [address] [place] [address] Care Team Providers Care Manager Cost Name Role Phone Unavailable Primary Care Provider Unavailabl e Prior Encounters Date Type Department Care Team Description 03/30/2019 Converted 13x Documents [facility] [address] [place] [id number] <No scans attached> Plan of Treatment Not on file Visit Diagnoses Not on file
[2024-08-19 02:16] LABS: Eosinophils Percent Auto 0.1 % (0-4.4); Hematocrit 37.7 % (37.0-47.0); Hemoglobin 12.6 g/dL (12.0-15.0); Immature Granulocyte Absolute 0.04 K/mm3 (0.00-0.031); Immature Granulocyte Percent A 0.4 % (0-0.5); Lymphocytes Absolute Auto 1.31 K/mm3 (0.9-3.2); Lymphocytes Percent Auto 12.1 % (18.3-44.2); Mean Corpuscular HGB Conc 33.4 g/dl (32-36); Mean Corpuscular Hemoglobin 28.1 pg (26-34); Mean Corpuscular Volume 84.2 fl (80-100); Mean Platelet Volume 9.1 fl (7.4-10.4); Monocytes Absolute Auto 0.8 K/mm3 (0.1-0.6); Monocytes Percent Auto 7.6 % (2.6-8.5); Neutrophils Absolute Auto 8.7 K/mm3 (1.3-6.7); Neutrophils Percent Auto 79.8 % (45.5-73.1); Platelet Count Result 337 k/mm3 (150-375); Red Blood Count 4.48 M/mm3 (4.2-5.4); Red Cell Distribution Width 12.9 % (11.5-14.5); White Blood Count 10.9 K/mm3 (4.5-10.0)
[2024-08-19 02:27] LABS: Alanine Aminotransferase 152 U/L (6-35); Albumin Level 4.7 g/dL (3.5-5.1); Alkaline Phosphatase 154 U/L (38-126); Anion Gap 9 mmol/L (4-12); Aspartate Amino Transferase 153 U/L (14-36); Blood Urea Nitrogen 10 mg/dL (7-17); Calcium 9.6 mg/dL (8.4-10.2); Carbon Dioxide 26 mmol/L (22-30); Chloride 105 mmol/L (98-107); Estimated CRCL calculation 86 ml/min; Estimated Glomerular Filt Rate > 60; Glucose 123 mg/dL (65-110); Lipase 88 U/L (23-300); Potassium 4.1 mmol/L (3.4-5.0); Sodium 140 mmol/L (137-145)
[2024-08-19] MEDS: HYDROcodone/acetaminophen (*CRX) 5-325 MG TABLET 1 TAB PO (02:58)
[2024-08-19 03:03] VITALS: BP 121/68; PULSE 85; RESP 17; O2SAT 100
== END 2024-08-19 03:03 | disposition home or self-care (01) ==
PROVIDERS: Emergency Provider Registered Nurse; PCP Internal Medicine
DX: K80.21 Calculus of gallbladder without cholecystitis with obstruction (principal); R74.01 Elevation of levels of liver transaminase levels; Z87.891 Personal history of nicotine dependence
CPT/HCPCS: 36415; 80053; 83690; 85025; 96361; 96374; 99284; A9270; J2270; J7030

== ENCOUNTER 2024-08-19 18:46 | Emergency (ER) | payer OTHER, SELFPAY ==
[2024-08-19 18:48] VITALS: BP 145/83; PULSE 107; RESP 16; TEMP 36.3; O2SAT 100
--- NOTE | 2024-08-19 19:40 | PC.NURSE ---
Pt and mother approached triage desk stating she was leaving and has made an appointment with her doctor. Pt ambulated to ED exit with steady gait and no signs for concern at this time.
== END 2024-08-19 19:40 | disposition left against medical advice (07) ==
PROVIDERS: PCP Internal Medicine
DX: K62.5 Hemorrhage of anus and rectum (principal)
CPT/HCPCS: 99199

== ENCOUNTER 2024-08-20 15:20 | Outpatient (CLI) | payer OTHER, SELFPAY ==
[2024-08-20 15:42] LABS: Basophils Percent Auto 0.5 % (0.2-1.2); Eosinophils Percent Auto 0.2 % (0-4.4); Hematocrit 31.9 % (37.0-47.0); Hemoglobin 10.5 g/dL (12.0-15.0); Immature Granulocyte Absolute 0.01 K/mm3 (0.00-0.031); Immature Granulocyte Percent A 0.2 % (0-0.5); Lymphocytes Absolute Auto 1.45 K/mm3 (0.9-3.2); Lymphocytes Percent Auto 23.1 % (18.3-44.2); Mean Corpuscular HGB Conc 32.9 g/dl (32-36); Mean Corpuscular Hemoglobin 28.2 pg (26-34); Mean Corpuscular Volume 85.8 fl (80-100); Monocytes Absolute Auto 0.3 K/mm3 (0.1-0.6); Monocytes Percent Auto 5.1 % (2.6-8.5); Neutrophils Absolute Auto 4.5 K/mm3 (1.3-6.7); Neutrophils Percent Auto 70.9 % (45.5-73.1); Platelet Count Result 320 k/mm3 (150-375); Red Blood Count 3.72 M/mm3 (4.2-5.4); Red Cell Distribution Width 13.4 % (11.5-14.5); White Blood Count 6.3 K/mm3 (4.5-10.0)
--- OUTSIDE RECORDS SUMMARY | 2024-08-20 15:49 | XMS_ITS | Encounter Summary ---
Author Organization [facility] Health Address [address] [place] [address] Care Team Providers Care Sanitation Manager Name Role Phone Unavailable Primary Care Provider Unavailabl e Prior Encounters Date Type Department Care Team Description 03/30/2019 Converted 13x Documents [facility] [address] [place] [place] [id number] <No scans attached> Plan of Treatment Not on file Visit Diagnoses Not on file
--- OUTSIDE RECORDS SUMMARY | 2024-08-20 15:50 | XMS_ITS | Clinical Summary ---
Author Organization [facility] Health Address [address] [place] [address] Care Team Providers Care Sheeter Machine Operator Name Role Phone Unavailable Primary Care [...]
[2024-08-20 15:54] LABS: Alanine Aminotransferase 198 U/L (6-35); Albumin Level 4.3 g/dL (3.5-5.1); Alkaline Phosphatase 177 U/L (38-126); Anion Gap 8 mmol/L (4-12); Aspartate Amino Transferase 92 U/L (14-36); Bilirubin,Total 0.8 mg/dL (0.2-1.3); Blood Urea Nitrogen 13 mg/dL (7-17); Calcium 9.2 mg/dL (8.4-10.2); Carbon Dioxide 23 mmol/L (22-30); Chloride 107 mmol/L (98-107); Estimated Glomerular Filt Rate > 60; Glucose 136 mg/dL (65-110); Potassium 4.1 mmol/L (3.4-5.0); Sodium 138 mmol/L (137-145); Total Protein 7.4 g/dL (6.3-8.2)
== END 2024-08-20 15:21 | disposition home or self-care (01) ==
LOC: ANHLAB 15:22
PROVIDERS: PCP Internal Medicine; Visit Provider Nurse Practitioner
DX: K92.1 Melena (principal)
CPT/HCPCS: 36415; 80053; 85025

== ENCOUNTER 2024-08-21 15:29 | Emergency (ER) | payer OTHER, SELFPAY ==
--- OUTSIDE RECORDS SUMMARY | 2024-08-21 15:31 | XMS_ITS | Clinical Summary ---
Author Organization [facility] Health Address [address] [place] [address] Care Team Providers Care Lab Animal Technologist Name Role Phone Unavailable Primary Care Provider [...]
--- OUTSIDE RECORDS SUMMARY | 2024-08-21 15:31 | XMS_ITS | Encounter Summary ---
Author Organization [facility] Health Address [address] [place] [address] Care Team Providers Care General Machine Operator Name Role Phone Unavailable Primary Care Provider Unavailabl e Prior Encounters Date Type Department Care Team Description 03/30/2019 Converted 13x Documents [facility] [address] [id number] <No scans attached> Plan of Treatment Not on file Visit Diagnoses Not on file
[2024-08-21 15:39] VITALS: BP 130/81; PULSE 102; RESP 16; TEMP 36.8; O2SAT 100
--- OUTSIDE RECORDS SUMMARY | 2024-08-21 16:09 | XMS_ITS | Encounter Summary ---
Author Organization [facility] Health Address [address] [place] [address] Care Team Providers Care Bilingual Loan Processor Name Role Phone Unavailable Primary Care Provider Unavailabl e Prior Encounters Date Type Department Care Team Description 03/30/2019 Converted 13x Documents [facility] [address] [facility] [place] [phone] <No scans attached> Plan of Treatment Not on file Visit Diagnoses Not on file
--- OUTSIDE RECORDS SUMMARY | 2024-08-21 16:09 | XMS_ITS | Clinical Summary ---
Author Organization [facility] Health Address [address] [place] [address] Care Team Providers Care Neuropathologist Name Role Phone Unavailable Primary Care Provider [...]
[2024-08-21 16:21] LABS: Basophils Percent Auto 0.4 % (0.2-1.2); Eosinophils Percent Auto 0.3 % (0-4.4); Hematocrit 29.6 % (37.0-47.0); Hemoglobin 9.8 g/dL (12.0-15.0); Immature Granulocyte Absolute 0.01 K/mm3 (0.00-0.031); Immature Granulocyte Percent A 0.1 % (0-0.5); Lymphocytes Absolute Auto 1.94 K/mm3 (0.9-3.2); Mean Corpuscular HGB Conc 33.1 g/dl (32-36); Mean Corpuscular Hemoglobin 28.2 pg (26-34); Mean Corpuscular Volume 85.1 fl (80-100); Mean Platelet Volume 9.2 fl (7.4-10.4); Monocytes Absolute Auto 0.5 K/mm3 (0.1-0.6); Monocytes Percent Auto 7.2 % (2.6-8.5); Neutrophils Absolute Auto 4.2 K/mm3 (1.3-6.7); Platelet Count Result 321 k/mm3 (150-375); Red Blood Count 3.48 M/mm3 (4.2-5.4); Red Cell Distribution Width 13.3 % (11.5-14.5); White Blood Count 6.7 K/mm3 (4.5-10.0)
--- NOTE | 2024-08-21 16:23 | ED_ITS ---
HPI - Recheck/Abnormal Lab/Rx General Chief Complaint: Recheck/Abnormal Lab/Rx Stated Complaint: Surgery Check Up, Blood in Stool Time Seen by Provider: 08/21/24 15:40 History of Present Illness HPI narrative: 29-year-old female with history of choledocholithiasis status post ERCP and sphincterotomy on 08/18/2024 patient is scheduled for elective cholecystectomy with Dr. Jerry on the . She presents today as she was having some blood in her stool and went to her GI doctor appointment yesterday where she showed them pictures and they had a digital rectal examination conducted. Initially she had melanotic stools yesterday but this has slowly improved and now she is having brown stool and she showed me pictures of this. She was worried and wanted to get her blood counts rechecked. She states she is very anxious at baseline but denies any new pain, no abdominal pain or tenderness, no fever, chills, nausea or vomiting. No further bright red blood or rectal bleeding to her knowledge. Related Data Home Medications ?Medication ?Instructions ?Recorded ?Confirmed ?Last Taken ?Type ibuprofen 600 mg tablet 600 mg PO TID PRN fever or pain 08/11/24 08/13/24 Unknown History Allergies Allergy/AdvReac Type Severity Reaction Status Date / Time amoxicillin AdvReac Mild Hives Verified 08/21/24 15:41 latex AdvReac Mild Hives Verified 08/21/24 15:41 Review of Systems 2 Review of Systems: As reviewed above in HPI COUNT INCLUDES THE [facility] Past Medical History Medical History Nausea & vomiting Elevated liver enzymes Migraines Hearing difficulty Asthma as child Anxiety Family History Family History Father Hypertension Mother Diabetes mellitus Depression Sibling Depression Grandparent Depression Heart disease Cerebrovascular accident Grandparent Lung cancer Heart disease Social History Social History Social History: Surrogate medical decision maker: Primo Webber, spouse. Code status: Full code. Smoking status: Former smoker Tobacco type: e-cigarettes/vaping Second hand tobacco smoke exposure: No Smoking end date: 09/25/21 Alcohol intake: never Substance use: never Substance use type: does not use Do You Feel Safe in your Home?: Yes Lack of Transportation: YES Lack of Food: Never True Current Housing: I Have Housing Concerned About Future Housing: No Difficulty Paying Gas/Electric Bills: No Difficulty Paying for Meds: No Currently Unemployed: No Education: High School Diploma/GED Difficulty w/ Childcare or Family Care: No Living arrangements: with family Additional living arrangements comments: Lives with spouse and their 3 children. 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 Mucous membranes moist. NECK: Supple. CHEST: [Clear to auscultation. No respiratory distress.] HEART: [Regular rate and rhythm]. No murmur heard. [Normal peripheral pulses.] ABDOMEN: [Soft, nondistended], [nontender], [No rigidity or guarding] EXTREMITIES: Normal range of motion. [No edema.] SKIN: Warm, dry, no rash. NEURO: [No focal deficits]. Alert and oriented [x3.] PSYCH: [Normal mood and affect.] Course Vital Signs Vital signs: Vital Signs Temperature 36.8 C 08/21/24 15:39 Pulse Rate 102 H 08/21/24 15:39 Respiratory Rate 16 08/21/24 15:39 Blood Pressure 130/81 08/21/24 15:39 Pulse Oximetry 100 08/21/24 15:39 Temperature 36.8 C 08/21/24 18:04 Pulse Rate 92 08/21/24 18:04 Respiratory Rate 16 08/21/24 18:04 Blood Pressure 128/76 08/21/24 18:04 Pulse Oximetry 100 08/21/24 18:04 MDM - Recheck/Abnormal Lab/Rx MDM Narrative Medical decision making narrative: 29-year-old female with history of gallstones and choledocholithiasis status post ERCP with sphincterotomy on 08/18/2024. System procedure she has noted she has had some darkening to her stooling with her GI office yesterday who performed a digital rectal examination with some melanotic stool. She had blood work done that showed stable slight drop in hemoglobin and improvement in her LFTs. Patient states that the GI bleeding has since improved markedly and now she is having brown stools no melanotic or tarry stool. No longer having any bright red blood per rectum but she want to make sure that her blood counts are still up. She has a scheduled elective cholecystectomy in [address] Hernandez. She is not any acute distress, has a soft nontender nondistended abdomen. Vital signs are within normal limits. CBC, CMP, PT, PTT and type and screen obtained. Suspect upper GI bleeding after reading patient's previous note from procedure and her gastrointestinal visit yesterday with likely source being the sphincterotomy rather than anything like an ulceration or peptic ulcer disease. Patient's GI doctor did recommend going to the ER if she has any continued dark stools, new or worsening symptoms and may electively do an EGD to rule out upper GI bleed. Will contact GI Dr. Olsen based on results of laboratory studies here today. Patient's workup reveals a hemoglobin of 9.8 which is slightly lower than 10.5 yesterday. No leukocytosis or anemia. Electrolytes are unremarkable. Normal renal function, unremarkable glucose. LFTs are downtrending from yesterday which is a good sign. Discussed the case with Dr. Olsen the GI doctor that is familiar with patient's case and he recommend starting her on Protonix for 2 weeks and having her follow-up outpatient. Patient is comfortable with this plan and safely discharged home with a prescription for Protonix. Medical Records Attestation: I reviewed the patient's medical records. Lab Data Attestation: I reviewed the patient's lab results. 08/21/24 16:04 08/21/24 16:04 Labs: Lab Results 08/21/24 Range/Units 16:04 WBC 6.7 (4.5-10.0) K/mm3 RBC 3.48 L (4.2-5.4) M/mm3 Hgb 9.8 L (12.0-15.0) g/dL Hct 29.6 L (37.0-47.0) % MCV 85.1 (80-100) fl MCH 28.2 (26-34) pg MCHC 33.1 (32-36) g/dl RDW 13.3 (11.5-14.5) % Plt Count 321 (150-375) k/mm3 MPV 9.2 (7.4-10.4) fl Immature Gran % (Auto) 0.1 (0-0.5) % Neut % (Auto) 63.0 (45.5-73.1) % Lymph % (Auto) 29.0 (18.3-44.2) % Burke % (Auto) 7.2 (2.6-8.5) % Eos % (Auto) 0.3 (0-4.4) % Baso % (Auto) 0.4 (0.2-1.2) % Lymph # (Auto) 1.94 (0.9-3.2) K/mm3 Burke # (Auto) 0.5 (0.1-0.6) K/mm3 Eos # (Auto) 0.0 (0-0.3) K/mm3 Baso # (Auto) 0.0 (0.0-0.1) K/mm3 Abs Immat Gran (auto) 0.01 (0.00-0.031) K/mm3 Absolute Neuts (auto) 4.2 (1.3-6.7) K/mm3 Absolute Nucleated RBC 0.000 (0.0-0.012) K/mm3 Nucleated RBC % 0.0 (0.0-0.2) % PT 14.2 (11.1-14.7) Seconds INR 1.1 APTT 20.9 L (22.3-36.8) Seconds Sodium 140 (137-145) mmol/L Potassium 3.8 (3.4-5.0) mmol/L Chloride 107 (98-107) mmol/L Carbon Dioxide 24 (22-30) mmol/L Anion Gap 9 (4-12) mmol/L BUN 7 D (7-17) mg/dL Creatinine 0.61 L (0.7-1.0) mg/dL Estim Creat Clear Calc 105 ml/min Estimated GFR > 60 (59 - ) Glucose 139 H (65-110) mg/dL Calcium 9.2 (8.4-10.2) mg/dL Total Bilirubin 0.7 (0.2-1.3) mg/dL AST 48 H (14-36) U/L ALT 150 H (6-35) U/L Alkaline Phosphatase 155 H (38-126) U/L Total Protein 7.3 (6.3-8.2) g/dL Albumin 4.2 (3.5-5.1) g/dL Blood Type O Positive Antibody Screen Negative Discharge Plan Discharge Clinical Impression: Post-op bleeding, Anemia Patient Disposition: Home Condition: Stable Instructions: Antibiotic Form Additional Instructions: We spoke to dish cloth inspector Dr. Olsen regarding your laboratory studies and he recommends starting you on Protonix in having you follow-up outpatient and continue with the plan for surgery on the with General surgery Dr. Hernandez. Your liver function panel is decreasing from yesterday which is a great sign, your hemoglobin level is slightly lower than yesterday but not a precipitous drop or anything of concern especially with the lightening in your stool. Return with any new or worsening concerns at any time. Patient Language: German Prescriptions: New pantoprazole [Protonix] 20 mg tablet,delayed release (DR/EC) 20 mg PO HS 28 Days Qty: 28 0RF No Action ibuprofen 600 mg tablet 600 mg PO TID PRN (Reason: fever or pain) hydrocodone-acetaminophen 5-325 mg tablet 1 tablet PO Q6H PRN (Reason: pain) Qty: 10 0RF Follow-up/Referrals: Rossi,MD Kasie [Primary Care Provider] - Time of Disposition: 17:41
[2024-08-21 16:27] LABS: Alanine Aminotransferase 150 U/L (6-35); Albumin Level 4.2 g/dL (3.5-5.1); Alkaline Phosphatase 155 U/L (38-126); Anion Gap 9 mmol/L (4-12); Aspartate Amino Transferase 48 U/L (14-36); Bilirubin,Total 0.7 mg/dL (0.2-1.3); Blood Urea Nitrogen 7 mg/dL (7-17); Calcium 9.2 mg/dL (8.4-10.2); Carbon Dioxide 24 mmol/L (22-30); Chloride 107 mmol/L (98-107); Estimated CRCL calculation 105 ml/min; Estimated Glomerular Filt Rate > 60; Glucose 139 mg/dL (65-110); Potassium 3.8 mmol/L (3.4-5.0); Sodium 140 mmol/L (137-145); Total Protein 7.3 g/dL (6.3-8.2)
[2024-08-21 16:29] LABS: INR 1.1; Prothrombin Time 14.2 Seconds (11.1-14.7)
[2024-08-21 16:30] LABS: Partial Thromboplastin Time 20.9 Seconds (22.3-36.8)
[2024-08-21 17:18] VITALS: BP 122/67; PULSE 101; RESP 15; O2SAT 100
[2024-08-21 18:04] VITALS: BP 128/76; PULSE 92; RESP 16; TEMP 36.8; O2SAT 100
== END 2024-08-21 18:05 | disposition home or self-care (01) ==
PROVIDERS: Emergency Provider Student in an Organized Health Care Education/Training Program; PCP Internal Medicine
DX: K91.840 Postprocedural hemorrhage of a digestive system organ or structure following a digestive system procedure (principal); D64.9 Anemia, unspecified; Z87.891 Personal history of nicotine dependence
CPT/HCPCS: 36415; 80053; 85025; 85610; 85730; 86850; 86900; 86901; 99283

== ENCOUNTER 2024-08-28 00:15 | Day surgery (SDC) | payer OTHER, SELFPAY ==
[2024-08-25 13:07] VITALS: BMI 32.3
--- NOTE | 2024-08-25 13:08 | PC.NURSE ---
Report to the Outpatient Waiting Room, entrance under the green pavilion located off [facility], at time _0630_ on date _[id number]_. Planned Procedure Time: _0830_.? Time changes happen often and if your time is changed the preop area will call you the afternoon before. - You and your visitor will be asked to self-screen and do not enter if you have any COVID symptoms. Please call surgeon if you need to reschedule. - A mask is optional within the hospital at this time. Patients may have clear liquids (water, carbonated beverages, clear teas, apple juice) until 3 hours prior to surgery with a maximum of 20 ounces. - No food from midnight until time of surgery and no smoking, or chewing tobacco (or any form of nicotine). No chewing gum, candy or mints. Take only the following medications with a SIP of water on the morning of surgery: ____Hydrocodone if needed. DO NOT STOP ANY OF YOUR OTHER PRESCRIPTION MEDICATIONS PRIOR TO SURGERY EXCEPT THE FOLLOWING Hold all vitamins and supplements for 3 days per anesthesiologist. Medications to discontinue per physician Hold Ibuprofen until after surgery per Dr Hernandez. Date to take last dose Please no make-up, nail telugu, hairspray, perfume, deodorant, or body powder the day of surgery.? No jewelry (including any body piercings) or valuables the day of surgery, leave them at home.? Please take a shower or bath the night before, or the morning of, surgery with an antibacterial soap.? Wear comfortable, loose fitting clothing.? - Jewelry must be removed prior to entering the operating room.? Rings and piercings that are not removed may be cut off. - The hospital will not accept responsibility for valuables.? - Please leave all valuables, including medications, at home the day of surgery. If you are going home after surgery, a licensed star route mail driver must drive you home.? - NO public transportation without another adult if you receive anesthesia. - We recommend that an adult stay with you for 24 hours following discharge. - We also recommend that you do not drive, make important decision, drink alcoholic beverages, or take any drugs that were not prescribed by your health care provider for at least 24 hours after your discharge time. Follow any additional instructions given to you from your surgeon. Telephone instructions given to __Delma___and asked if any additional questions and then verbalized understanding. Patient advised to call surgeon office or pre surgery nurse liaison [phone] if any additional questions.
[2024-08-28] VITALS (9 sets, daily range): BP systolic 110–124; BP diastolic 46–69; PULSE 76–93; RESP 14–18; TEMP 36.6–36.9; O2SAT 94–100; BMI 31.4
--- OUTSIDE RECORDS SUMMARY | 2024-08-28 00:18 | XMS_ITS | Clinical Summary ---
Author Organization [facility] Health Address [address] [place] [address] Care Team Providers Care Carbide Operator Name Role Phone Unavailable Primary Care [...]
--- OUTSIDE RECORDS SUMMARY | 2024-08-28 00:18 | XMS_ITS | Encounter Summary ---
Author Organization [facility] Health Address [address] [place] [address] Care Team Providers Care Apprentice Plant Attendant Name Role Phone Unavailable Primary Care Provider Unavailabl e Prior Encounters Date Type Department Care Team Description 03/30/2019 Converted 13x Documents [facility] [address] [place] [id number] <No scans attached> Plan of Treatment Not on file Visit Diagnoses Not on file
--- NOTE | 2024-08-28 07:21 | WPDHPUPDATE1 ---
History and Physical Update Update Date/Time: 08/28/24 07:21 History and Physical has been reviewed, including an updated exam of the patient. There are NO changes in the patient's condition. Risks, benefits, and alternatives have been discussed and questions answered. Patient agrees to proceed with procedure. Pt had interval ERCP with sweeping of CBD for stones. Only sludge removed. No retained stone.
[2024-08-28] MEDS: ACETAMINOPHEN 500 MG TABLET 1000 MG PO (07:30)
[2024-08-28] MEDS: KETOROLAC 15 MG/ML VIAL (*BKC) IV PUSH (07:30)
[2024-08-28] MEDS: LACTATED RINGERS 1,000 ML 30 ML IV CONT ×2 (07:55→10:09)
[2024-08-28 07:56] LABS: BEDSIDEPREGUCG Negative (Negative)
[2024-08-28 08:02] LABS: Alanine Aminotransferase 41 U/L (6-35); Albumin Level 4.2 g/dL (3.5-5.1); Alkaline Phosphatase 126 U/L (38-126); Amylase 58 U/L (30-110); Aspartate Amino Transferase 28 U/L (14-36); Bilirubin,Total 0.7 mg/dL (0.2-1.3); Total Protein 7.3 g/dL (6.3-8.2)
--- NOTE | 2024-08-28 08:03 | P.PNAN_ITS ---
Anes - Initial Pre Proc Eval Procedure: Operation Date: 08/28/24 08:30 Proposed Procedures p Laparoscopic Cholecystectomy, Possible Open - Angelo Hernandez MD Date/Time: 08/28/24 08:03 Surgeon: Angelo Hernandez MD Pre Op Diagnosis: cholelithiasis Patient Data Age: 29 Gender: F Height: 1.52 m Weight: 73 kg Last Vital Signs Temp 98 F 08/28/24 07:51 Pulse 92 08/28/24 07:51 BP 111/66 08/28/24 07:51 Pulse Ox 100 08/28/24 07:51 O2 Del Method Room Air 08/28/24 07:51 Allergies Allergy/AdvReac Type Severity Reaction Status Date / Time amoxicillin Allergy Mild Hives Verified 08/28/24 07:58 latex Allergy Mild Hives Verified 08/28/24 07:58 Home Medications ?Medication ?Instructions ?Recorded ?Confirmed ?Type ibuprofen 600 mg tablet 600 mg PO TID PRN fever or pain 08/11/24 08/25/24 History hydrocodone 5 mg-acetaminophen 325 1 tablet PO Q6H PRN pain #10 tabs 08/19/24 08/25/24 Rx mg tablet pantoprazole 20 mg tablet,delayed 20 mg PO HS 4 weeks #28 tabs 08/21/24 08/25/24 Rx release (Protonix) Laboratory Tests 08/28/24 08/28/24 07:42 07:51 Total Bilirubin 0.7 mg/dL (0.2-1.3) Direct Bilirubin 0.0 mg/dL (0-0.3) AST 28 U/L (14-36) ALT 41 H U/L (6-35) Alkaline Phosphatase 126 U/L (38-126) Total Protein 7.3 g/dL (6.3-8.2) Albumin 4.2 g/dL (3.5-5.1) Amylase 58 U/L (30-110) POC Urine HCG, Qual Negative (Negative) Patient hx anesthesia problems: none Family hx anesthesia problems: none Results Review: All pre-operative results and documents have been reviewed as part of the pre- operative evaluation. [facility] Past Medical History Medical History Nausea & vomiting Elevated liver enzymes Migraines Hearing difficulty Asthma as child Anxiety Family History Family History Father Hypertension Mother Diabetes mellitus Depression Sibling Depression Grandparent Depression Heart disease Cerebrovascular accident Grandparent Lung cancer Heart disease Social History Social History Social History: Surrogate medical decision maker: Primo Webber, spouse. Code status: Full code. Smoking status: Former smoker Tobacco type: e-cigarettes/vaping Second hand tobacco smoke exposure: No Smoking end date: 09/25/21 Alcohol intake: never Substance use: never Substance use type: does not use Do You Feel Safe in your Home?: Yes Lack of Transportation: YES Lack of Food: Never True Current Housing: I Have Housing Concerned About Future Housing: No Difficulty Paying Gas/Electric Bills: No Difficulty Paying for Meds: No Currently Unemployed: No Education: High School Diploma/GED Difficulty w/ Childcare or Family Care: No Living arrangements: with family Additional living arrangements comments: Lives with spouse and their 3 children. 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 Spiritual care concerns: No Anes - Eval Final PreProcedure Day of Procedure 08/28/24 08:03 Patient weight: obese Heart: regular rate and rhythm Lungs: clear to auscultation Airway: Mallampati scale class II Neurological: alert and oriented Last oral intake: >/= 8 hours ASA classification: II Emergent: no Anesthetic plan: proceed Anesthesia type and monitoring: general ETT and standard monitoring Results Review: All pre-operative results and documents have been reviewed as part of the pre- operative evaluation. Informed Consent: The patient's anesthetic plan and its attendant risks and benefits were discussed with the patient/family/POA. Questions were solicited and answers provided to the satisfaction of the patient/family/POA.
[2024-08-28] MEDS: ceFAZolin 2 GM/D5W 50 ML 2 GM/50 ML BAG IVPB (09:00)
[2024-08-28] MEDS: BUPivacaine HCL 0.5% PF 30 ML VIAL INFILTRATE (09:03)
--- NOTE | 2024-08-28 09:49 | S_PTH ---
PATIENT: Delma Webber LOC: [facility] U#:[id number] AGE/SX: 29/F ROOM: RE08/28/[address]: Angelo Hernandez MD : 1995 BED: DIS: 08/28/2024 SPEC #: [id number] RECD: 08/28/24 11:43 STATUS: YISEL REQ #: [id number] ROYAL: 08/28/24 09:[address]: Angelo Hernandez DEPT: [facility] Surgical RECD BY: Maria C Hurd ENTERED: 08/28/24 11:43 SP TYPE: Surgical OTHR DR: Kasie RicheyMD Tissues: A - Gallbladder Procedures: Hematoxylin and Eosin Stain Gross and Microscopic Level 3
--- NOTE | 2024-08-28 09:59 | SUR.OPER ---
EBL 20
--- NOTE | 2024-08-28 10:16 | P.OP_ITS ---
Procedure Note - Detailed Date of Procedure 08/28/24 Pre-op Diagnosis Cholelithiasis, choledocholithiasis Post-op Diagnosis Other ( Chronic cholecystitis secondary to cholelithiasis, history of choledocholithiasis) Procedure Performed Laparoscopic cholecystectomy Surgeon Angelo Hernandez MD Anesthesia General Indications Patient is a 29-year-old female who was recently admitted to the hospital with transaminitis and appeared to have passed a common bile duct stone. MRCP was then performed showing gallstones but no acute cholecystitis. There was a question of a possible gallbladder polyp but that was ruled out on MRCP. There was suggestion of a small distal common bile duct stone. As an outpatient she had ERCP performed this showed no retained common bile duct stone and only gallbladder sludge in the bile duct with sweeps of the common bile duct. She is totally asymptomatic now and her liver enzymes had normalized. She now presents for an elective laparoscopic cholecystectomy due to residual cholelithiasis. Findings The gallbladder was mildly contracted and moderately intrahepatic. Gallstones were noted within the gallbladder. Gallbladder wall was mildly thickened but no acute inflammatory changes noted. Common bile duct did not appear dilated. Description of Procedure After informed consent was obtained patient brought to the operating room she was placed supine position and general endotracheal anesthesia was administered. The abdomen was then prepped and draped usual sterile fashion. A time-out was then performed correctly identifying the patient as well as procedure to be performed. She was given perioperative IV antibiotics. I then entered the abdomen left upper quadrant utilizing a 5mm Optiview port. Once inside the abdomen insufflated to adequate pneumoperitoneum of 15mmHg of CO2. There were no adhesions around the umbilicus so I placed a 5mm Optiview port in this position. Laparoscopic was then switched over to this position and then looking into the upper portion of the abdomen and epigastric 10mm trocar port and 2 right lateral subcostal 5mm trocar ports were all placed under direct visualization. the gallbladder was visualized it was mildly contracted. It seemed to be moderately intrahepatic. The gallbladder wall is mildly thickened but there did not appear to be any acute inflammatory changes. With a laparoscopic grasper held the gallbladder at the dome and elevated the gallbladder over the right half liver towards right shoulder. Second grasper was then used to gallbladder at the infundibulum. I then proceeded to strip down the visceral peritoneum off the infundibular gallbladder to identify the cystic duct. Cystic duct was then dissected out circumferentially. The cystic artery was identified and dissected out circumferentially as well. Posterior wall the gallbladder at the infundibulum dissected free liver into the critical view was obtained. At this point I then placed 2 clips proximally cystic duct and 2 clips distally high on infundibular gallbladder. The cystic duct was divided Endo Velasquez. In a similar fashion cystic artery clipped and divided as well. The gallbladder was then resected off the liver electrocautery without spilling any gallstones or any bile. The gallbladder was then placed into Endo- Catch bag and brought out through the epigastric port site. The gallbladder was palpated had at least 2 gallstones within the gallbladder. The gallbladder and gallstones were sent to pathology for examination. I then irrigated out the gallbladder fossa in the right upper quadrant the abdomen sterile saline solution. Hemostasis was excellent. There was no evidence of bile leak. I then aspirated the fluid from the right upper quadrant the abdomen from the pelvis. I then removed all the trocar ports under direct visualization all port sites appeared hemostatic. The abdomen was then allowed to decompress. The port sites were then irrigated sterile saline solution. The epigastric 10mm trocar port fascial defect was then closed utilizing 0 Vicryl suture at the fascial level. The skin edges were then approximated utilizing a running subcuticular 4-0 Monocryl suture in all the port site incisions. The incisions were then cleaned the skin glue was applied. The patient tolerated the procedure well no complications. All sponges, needles, and instrument counts were correct at the end procedure. EBL was __20_cc. The patient was awakened and taken to recovery in stable and satisfactory condition. Implants none Estimated Blood Loss 20 Drains No Packing No Pathology Yes ( gallbladder and gallstones to pathology) Complications No immediate complications Condition Stable Disposition PACU [facility] Billing Surgery - Charge Forward: Surgery Billing
[2024-08-28] MEDS: oxyCODONE HCL (*CRX) 5 MG TAB IR PO (11:26)
== END 2024-08-28 12:08 | disposition home or self-care (01) ==
PROVIDERS: PCP Internal Medicine; Visit Provider Surgery
PROC: 0FT44ZZ Resection of Gallbladder, Percutaneous Endoscopic Approach (ICD-10-PCS; CPT 47562; principal; 2024-08-28 08:30)
DX: K80.10 Calculus of gallbladder with chronic cholecystitis without obstruction (principal); J45.909 Unspecified asthma, uncomplicated; F41.9 Anxiety disorder, unspecified; E66.9 Obesity, unspecified; Z68.31 Body mass index [BMI] 31.0-31.9, adult; Z79.1 Long term (current) use of non-steroidal anti-inflammatories (NSAID); Z79.891 Long term (current) use of opiate analgesic; Z87.891 Personal history of nicotine dependence; Z80.1 Family history of malignant neoplasm of trachea, bronchus and lung; Z82.49 Family history of ischemic heart disease and other diseases of the circulatory system
CPT/HCPCS: 47562; 36415; 80076; 82150; 88304; A9270; J0690; J1100; J1885; J2003; J2004; J2250; J2405; J2704; J3010; J7120

== ENCOUNTER 2025-02-07 17:42 | Emergency (ER) | payer OTHER, SELFPAY ==
--- NOTE | 2025-02-07 17:53 | ED.SKABFB ---
HPI - Skin/Abscess/Foreign Bdy General Chief complaint: Skin/Abscess/Foreign Body Stated complaint: rash rt thigh Time Seen by Provider: 02/07/25 17:53 Source: patient Mode of arrival: ambulatory Limitations: no limitations History of Present Illness HPI narrative: patient is a 29-year-old female presents with rash to right inner thigh. Patient states she was doing her nails with gel Danish and drops some onto her thigh. Patient does have latex allergy. Patient has taken Benadryl which has helped with itching . Patient does report rash was more pronounced with hives prior to Benadryl Related Data Home Medications ?Medication ?Instructions ?Recorded ?Confirmed ?Last Taken ?Type buspirone 5 mg tablet 5 mg PO BID 09/09/24 09/09/24 Unknown History Allergies Allergy/AdvReac Type Severity Reaction Status Date / Time amoxicillin Allergy Mild Hives Verified 02/07/25 17:55 latex Allergy Mild Hives Verified 02/07/25 17:55 Review of Systems Review of Systems: All systems reviewed & are unremarkable except as noted in HPI and below Constitutional: Constitutional: Denies body ache(s), Denies chills, Denies fatigue, Denies fever(s), Denies headache(s), Denies malaise and Denies weakness Eyes: Eyes: Denies blurry vision, Denies irritation and Denies loss of vision ENT: Denies otalgia, Denies headache(s), Denies nasal discharge, Denies sinus pain and Denies sore throat Cardiovascular: Cardiovascular: Denies chest pain, Denies irregular heart rhythm and Denies dyspnea Respiratory: Respiratory: Denies dyspnea Gastrointestinal: Gastrointestinal: Denies abdominal pain, Denies melena, Denies hematochezia, Denies diarrhea, Denies nausea and Denies vomiting Musculoskeletal: Musculoskeletal: Denies back pain, Denies myalgias and Denies arthralgias Integumentary/Breasts: Skin/Breast: Reports pruritus and Reports rash Neurologic: Denies headache(s), Denies loss of vision and Denies weakness Psychiatric: Psychiatric: Reports no additional psychiatric complaints Endocrine: Endocrine: Denies fatigue PMFSH Past Medical History Medical History Nausea & vomiting Elevated liver enzymes Migraines Hearing difficulty Asthma as child Anxiety Surgical History Surgical History Hx laparoscopic cholecystectomy 08/28/[address] Hernandez Family History Family History Father Hypertension Mother Diabetes mellitus Depression Sibling Depression Grandparent Depression Heart disease Cerebrovascular accident Grandparent Lung cancer Heart disease Social History Social History Social History: Surrogate medical decision maker: Primo Webber, spouse. Code status: Full code. Smoking status: Former smoker Tobacco type: e-cigarettes/vaping Second hand tobacco smoke exposure: No Smoking end date: 09/25/21 Alcohol intake: never Substance use: never Substance use type: does not use Lack of Transportation: No Lack of Food: Never True Current Housing: I Have Housing Concerned About Future Housing: No Difficulty Paying Gas/Electric Bills: No Difficulty Paying for Meds: No Currently Unemployed: No Education: High School Diploma/GED Difficulty w/ Childcare or Family Care: No Living arrangements: with family Additional living arrangements comments: Lives with spouse and their 3 children. 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 Spiritual care concerns: No Comments At time of signature, agree with nursing past medical, surgical, social and family history. There is no relevant family history pertinent to the presenting complaint. Exam Const: General: cooperative, healthy appearing, comfortable, no acute distress and well nourished Nutritional Appearance: well nourished Orientation/consciousness: patient oriented x3 Limitations: no limitations HENMT: Head: normal to inspection, normocephalic and atraumatic Ears: hearing grossly normal bilaterally and external ears normal Face/Nose/Sinus: Normal external nose present, normal facial exam and face symmetric Face and sinus: normal facial exam and face symmetric Mouth: Yes lip normal Eyes: General: appearance normal, both eyes and all related structures Alignment and Position: alignment normal and position normal Periorbital: periorbital findings normal Eyelids: eyelids normal Pupils: Equal, round and reactive pupils present EOM: EOMs intact bilaterally Neck: Neck: normal visual inspection, full ROM and supple Chest: Chest palpation & inspection: normal inspection of the chest Resp: Effort & Inspection: normal respiratory effort and able to speak in complete sentences Auscultation: clear to auscultation bilaterally Cardio: Rate: regular rate Rhythm: regular rhythm Heart sounds: S1 normal heart sound present and S2 normal heart sound present GI: Inspection: normal to inspection Skin: General skin exam: normal color and no rashes or lesions noted Rashes: rashes noted hives right upper leg size (3x2 cm, 2x2 cm), arrangement grouped, borders sharp and irregular and surface dry, erythematous and warm Neuro: General: patient oriented x3 and moves all extremities Cranial nerves: Yes Equal, round and reactive pupils present Speech: normal speech Gait exam (Neuro): Normal gait present Extrem: General: normal to inspection, full ROM and no edema Psych: Appearance: grossly normal and well kempt Mental Status: mental status grossly normal Speech and movement: Normal speech and movement present Affect: normal affect Attitude: cooperative Thought process: Normal thought process present Course Course Emergency Course: Patient is aware of diagnosis, understands and agrees to treatment plan. Anticipatory guidance given. Patient agrees to follow-up as directed and is aware of reasons to seek care at the emergency department. Portions of this record may have been created with voice recognition software Level of Care: Express Care Visit Vital Signs Vital signs: Vital Signs Temperature 36.4 C 02/07/25 18:02 Pulse Rate 84 02/07/25 18:02 Respiratory Rate 16 02/07/25 18:02 Blood Pressure 115/78 02/07/25 18:02 Pulse Oximetry 100 02/07/25 18:02 Oxygen Delivery Room Air 02/07/25 18:02 Temperature 36.4 C 02/07/25 18:02 Pulse Rate 84 02/07/25 18:02 Respiratory Rate 16 02/07/25 18:02 Blood Pressure 115/78 02/07/25 18:02 Pulse Oximetry 100 02/07/25 18:02 Oxygen Delivery Room Air 02/07/25 18:02 Reviewed MDM - Skin/Abscess/Foreign Bdy MDM Narrative Medical decision making narrative: will treat allergic reaction with steroids. Pt well hydrated appearing, in no respiratory distress, hemodynamically stable. Recommend supportive care. The patient is stable at time of discharge the clinical impression was discussed and the patient was given the opportunity to ask questions, which were addressed as completely as possible given the information available at present. Anticipatory guidance and return to care precautions were discussed and the importance of primary care follow-up was stressed and encouraged. The patient voiced understanding of the plan, indications to return, and the need for follow-up. Exam findings show no acute concerns or changes Patient is appropriate for outpatient treatment and follow-up. Differential Diagnosis Differential diagnosis: Likely urticaria, cellulitis and contact dermatitis Medical Records Attestation: I reviewed the patient's medical records. Discharge Plan Discharge Clinical Impression: Contact dermatitis Qualifiers: Contact dermatitis type: allergic Contact dermatitis trigger: cosmetics Qualified Code(s): L23.2 - Allergic contact dermatitis due to cosmetics Patient Disposition: Home Condition: Stable Instructions: Contact Dermatitis (ED) Additional Instructions: The most important part of your care is follow up with Primary care provider. Take Benadryl 25-50 mg every 6 hours for itching Take Claritin, Zyrtec, or Beena daily for the next 7 days Take the steroids starting in the morning with food Avoid hot showers, Take cool showers. Wash the area with gentle soap and water only. Use skin cream as prescribed to reduce itchiness Avoid scratching when possible to prevent worsening of the condition and disruption of the skin that could lead to bacterial infection To relieve itching, place a cool washcloth or some ice over the area that itches, rather than scratching Follow up with primary care provider or seek ER if you have trouble breathing, become hoarse, or start wheezing, develop belly cramps, vomiting or feel dizzy. Patient Language: Guatemalan Prescriptions: New prednisone 20 mg tablet See Rx Instructions .ROUTE .COMPLEX Qty: 9 0RF Rx Instructions: 40 mg daily x3 days, 20 mg daily x3 days No Action buspirone 5 mg tablet 5 mg PO BID pantoprazole [Protonix] 20 mg tablet,delayed release (DR/EC) 20 mg PO HS 28 Days Qty: 28 0RF Follow-up/Referrals: Rossi,MD Kasie [Primary Care Provider, Unknown] - 3 Days Time of Disposition: 18:39
[2025-02-07 18:02] VITALS: BP 115/78; PULSE 84; RESP 16; TEMP 36.4; O2SAT 100
== END 2025-02-07 18:53 | disposition home or self-care (01) ==
PROVIDERS: Emergency Provider Nurse Practitioner Family; PCP Internal Medicine
DX: L23.2 Allergic contact dermatitis due to cosmetics (principal); Z87.891 Personal history of nicotine dependence; F41.9 Anxiety disorder, unspecified
CPT/HCPCS: 99213; G0463